=== PATIENT | female | born 1930 | race Caucasian/White ===

== ENCOUNTER 2016-11-16 09:11 | Inpatient (IN) | payer MEDICARE, BC ==
[2016-11-16] MEDS ORDERED: SODIUM CHLORIDE 0.9% 1,000 ML IV STA (09:25)
[2016-11-16] MEDS ORDERED: FAMOTIDINE 20 MG/2 ML VIAL IV STA (09:29)
--- NOTE | 2016-11-16 09:33 | ED ---
General Adult HPI - General Chief complaint: Weakness Stated complaint: Altered Mental Status/Weakness Time Seen by Provider: 11/16/16 09:16 Source: patient, family, RN notes reviewed Mode of arrival: EMS Limitations: no limitations - History of Present Illness Initial comments: Patient is a pleasant 86-year-old female presenting to the emergency department with weakness. Patient did have upper respiratory infection including sore throat followed by sinuses followed by chest congestion. Patient did have a cough. Chest congestion and other problems have essentially resolved. Patient has increased appetite. Patient is having some left-sided pain. No fevers. Patient has been fatigued and not getting out of bed much. - Related Data Home Medications Medication Instructions Recorded Confirmed ALPRAZolam [Xanax] 0.25 mg PO HS PRN 05/01/14 11/16/16 Aspirin 81 mg PO MOWEFR 05/01/14 11/16/16 Atorvastatin [Lipitor] 40 mg PO HS 05/01/14 11/16/16 Furosemide [Lasix] 20 mg PO DAILY PRN 05/01/14 11/16/16 Lidocaine 5% Oint [Xylocaine 5% 1 applicate TOPICAL DAILY PRN 05/01/14 11/16/16 Oint] Losartan-Hctz 50-12.5 mg [Hyzaar 1 tab PO DIRECTED 05/01/14 11/16/16 50-12.5] Meclizine [Antivert] 25 mg PO TID PRN 05/01/14 11/16/16 Nitroglycerin Sl Tabs [Nitrostat] 0.4 mg SUBLINGUAL DIRECTED PRN 05/01/14 HYDROcodone/APAP 7.5-325MG [Warrior 1 tab PO TID 06/28/14 11/16/16 7.5-325] Azithromycin [Zithromax Z-pack] See Taper PO DIRECTED 11/16/16 11/16/16 Carboxymethylcellulose Sodium 1 drop BOTH EYES DAILY 11/16/16 11/16/16 [Refresh Tears] Cholecalciferol [Vitamin D3] 1,000 unit PO DAILY 11/16/16 11/16/16 Cyanocobalamin [Vitamin B-12 1,000 mcg SQ QMONTH 11/16/16 11/16/16 Injection] Denosumab [Prolia] 60 mg SQ DIRECTED 11/16/16 11/16/16 Vit A,C & E/Lutein/Minerals 1 tab PO DAILY 11/16/16 11/16/16 [Ocuvite with Lutein Tablet] methylPREDNISolone [Medrol Dose See Taper PO DIRECTED 11/16/16 11/16/16 Pack] Previous Rx's Medication Instructions Recorded Famotidine [Pepcid] 20 mg PO BID #30 tablet 06/28/14 Ondansetron Odt [Zofran Odt] 4 mg PO Q8HR PRN #15 tab 06/28/14 Allergies Allergy/AdvReac Type Severity Reaction Status Date / Time iodine Allergy Rash/Hives Verified 11/16/16 09:20 latex Allergy Rash/Hives Verified 11/16/16 09:20 morphine Allergy Hallucinati Verified 11/16/16 09:20 ons propoxyphene napsylate Allergy Hallucinati Verified 11/16/16 09:20 [From Darvocet-N] ons adhesive tape AdvReac Unknown Verified 11/16/16 09:20 Review of Systems ROS Statement: Those systems with pertinent positive or pertinent negative responses have been documented in the HPI. ROS Other: All systems not noted in ROS Statement are negative. Constitutional: Denies: fever Eyes: Denies: eye pain ENT: Denies: ear pain Respiratory: Reports: cough Cardiovascular: Denies: chest pain Endocrine: Reports: fatigue Gastrointestinal: Reports: abdominal pain, nausea Genitourinary: Denies: dysuria Musculoskeletal: Denies: arthralgia Skin: Denies: rash Neurological: Reports: weakness (Generalized) Past Medical History Past Medical History: CVA/TIA, Hyperlipidemia, Hypertension, Myocardial Infarction ([place]), Rheumatoid Arthritis (RA) Additional Past Medical History / Comment(s): hX pilot point Hx. vertigo, aneursym Last Myocardial Infarction Date:: 2000 History of Any Multi-Drug Resistant Organisms: None Reported Past Surgical History: Heart Catheterization With Stent Additional Past Surgical History / Comment(s): Hx one ovary removed Hx. cataracts removed both eyes Hx. cardiac stent after OH around 2000 Past Anesthesia/Blood Transfusion Reactions: No Reported Reaction Past Psychological History: No Psychological Hx Reported Smoking Status: Never smoker Past Alcohol Use History: None Reported Past Drug Use History: None Reported - Past Family History Father Additional Family Medical History / Comment(s): Hx. mom and dad - cardiac General Exam Limitations: no limitations General appearance: alert, in no apparent distress Head exam: Present: atraumatic, normocephalic Eye exam: Present: PERRL, other (Left-sided subconjunctival hemorrhage) ENT exam: Present: normal oropharynx Neck exam: Present: normal inspection Respiratory exam: Present: normal lung sounds bilaterally Cardiovascular Exam: Present: regular rate, normal rhythm GI/Abdominal exam: Present: soft, tenderness (Mild left flank). Absent: distended Extremities exam: Present: normal inspection Neurological exam: Present: alert, other (Exam is limited by chronic problems of right shoulder and bilateral knees. No focal deficits.) Psychiatric exam: Present: normal affect, normal mood Skin exam: Absent: rash Course Vital Signs 11/16/16 11/16/16 11/16/16 09:14 09:45 12:29 Temperature 97.7 F 97.9 F Pulse Rate 81 72 71 Respiratory 20 18 16 Rate Blood Pressure 187/85 187/81 190/88 O2 Sat by Pulse 99 98 97 Oximetry EKG Findings - EKG Comments: EKG Findings:: Sinus rhythm at 83. For screening AV block with a [place] of 268. QRS 84. QT 372. QTC 437. Normal axis. Minimal voltage criteria for LVH. No acute ST change. Medical Decision Making - Medical Decision Making Patient reevaluated. Patient and family updated. Case discussed in detail with Dr. Phillips, who will admit for Dr. Melgar. - Lab Data Result diagrams: 11/16/16 09:43 11/16/16 09:43 Lab Results 11/16/16 11/16/16 11/16/16 Range/Units 09:43 09:43 09:43 WBC 9.9 (3.8-10.6) k/uL RBC 4.07 (3.80-5.40) m/uL Hgb 12.3 (11.4-16.0) gm/dL Hct 37.3 (34.0-46.0) % MCV 91.6 (80.0-100.0) fL MCH 30.1 (25.0-35.0) pg MCHC 32.9 (31.0-37.0) g/dL RDW 13.5 (11.5-15.5) % Plt Count 445 (150-450) k/uL Neutrophils % 79 % Lymphocytes % 13 % Monocytes % 5 % Eosinophils % 1 % Basophils % 0 % Neutrophils # 7.8 H (1.3-7.7) k/uL Lymphocytes # 1.3 (1.0-4.8) k/uL Monocytes # 0.5 (0-1.0) k/uL Eosinophils # 0.1 (0-0.7) k/uL Basophils # 0.0 (0-0.2) k/uL PT (9.0-12.0) sec INR (<1.1) APTT (22.0-30.0) sec Sodium 136 L (137-145) mmol/L Potassium 3.9 (3.5-5.1) mmol/L Chloride 97 L (98-107) mmol/L Carbon Dioxide 31 H (22-30) mmol/L Anion Gap 8 mmol/L BUN 18 H (7-17) mg/dL Creatinine 0.80 (0.52-1.04) mg/dL Est GFR (MDRD) Af Amer >60 (>60 ml/min/1.73 sqM) Est GFR (MDRD) Non-Af >60 (>60 ml/min/1.73 sqM) Glucose 107 H (74-99) mg/dL Calcium 9.9 (8.4-10.2) mg/dL Phosphorus 3.5 (2.5-4.5) mg/dL Magnesium 1.9 (1.6-2.3) mg/dL Total Bilirubin 0.7 (0.2-1.3) mg/dL AST 24 (14-36) U/L ALT 34 (9-52) U/L Alkaline Phosphatase 144 H (38-126) U/L Total Creatine Kinase 24 L (30-135) U/L CK-MB (CK-2) 0.5 (0.0-2.4) ng/mL CK-MB (CK-2) Rel Index 2.1 Troponin I 0.012 (0.000-0.034) ng/mL Total Protein 6.2 L (6.3-8.2) g/dL Albumin 3.5 (3.5-5.0) g/dL TSH 2.490 (0.465-4.680) mIU/L Free T4 1.52 (0.78-2.19) ng/dL Free T3 pg/mL 3.1 (2.8-5.3) pg/ml Urine Color Urine Appearance (Clear) Urine pH (5.0-8.0) Ur Specific [place] (1.001-1.035) Urine Protein (Negative) Urine Glucose (UA) (Negative) Urine Ketones (Negative) Urine Blood (Negative) Urine Nitrite (Negative) Urine Bilirubin (Negative) Urine Urobilinogen (<2.0) mg/dL Ur Leukocyte Esterase (Negative) Urine RBC (0-5) /hpf Urine WBC (0-5) /hpf Ur Squamous Epith Cells (0-4) /hpf Urine Mucus (None) /hpf 11/16/16 11/16/16 Range/Units 09:43 11:56 WBC (3.8-10.6) k/uL RBC (3.80-5.40) m/uL Hgb (11.4-16.0) gm/dL Hct (34.0-46.0) % MCV (80.0-100.0) fL MCH (25.0-35.0) pg MCHC (31.0-37.0) g/dL RDW (11.5-15.5) % Plt Count (150-450) k/uL Neutrophils % % Lymphocytes % % Monocytes % % Eosinophils % % Basophils % % Neutrophils # (1.3-7.7) k/uL Lymphocytes # (1.0-4.8) k/uL Monocytes # (0-1.0) k/uL Eosinophils # (0-0.7) k/uL Basophils # (0-0.2) k/uL PT 10.7 (9.0-12.0) sec INR 1.1 (<1.1) APTT 24.3 (22.0-30.0) sec Sodium (137-145) mmol/L Potassium (3.5-5.1) mmol/L Chloride (98-107) mmol/L Carbon Dioxide (22-30) mmol/L Anion Gap mmol/L BUN (7-17) mg/dL Creatinine (0.52-1.04) mg/dL Est GFR (MDRD) Af Amer (>60 ml/min/1.73 sqM) Est GFR (MDRD) Non-Af (>60 ml/min/1.73 sqM) Glucose (74-99) mg/dL Calcium (8.4-10.2) mg/dL Phosphorus (2.5-4.5) mg/dL Magnesium (1.6-2.3) mg/dL Total Bilirubin (0.2-1.3) mg/dL AST (14-36) U/L ALT (9-52) U/L Alkaline Phosphatase (38-126) U/L Total Creatine Kinase (30-135) U/L CK-MB (CK-2) (0.0-2.4) ng/mL CK-MB (CK-2) Rel Index Troponin I (0.000-0.034) ng/mL Total Protein (6.3-8.2) g/dL Albumin (3.5-5.0) g/dL TSH (0.465-4.680) mIU/L Free T4 (0.78-2.19) ng/dL Free T3 pg/mL (2.8-5.3) pg/ml Urine Color Yellow Urine Appearance Clear (Clear) Urine pH 5.5 (5.0-8.0) Ur Specific [place] 1.024 (1.001-1.035) Urine Protein 1+ H (Negative) Urine Glucose (UA) Negative (Negative) Urine Ketones Trace H (Negative) Urine Blood Negative (Negative) Urine Nitrite Negative (Negative) Urine Bilirubin Negative (Negative) Urine Urobilinogen 3.0 (<2.0) mg/dL Ur Leukocyte Esterase Negative (Negative) Urine RBC 1 (0-5) /hpf Urine WBC 2 (0-5) /hpf Ur Squamous Epith Cells 1 (0-4) /hpf Urine Mucus Rare H (None) /hpf - Radiology Data Radiology results: report reviewed (Computed tomography scan of the abdomen pelvis shows some constipation. Subsegmental changes medial right lung base.), image reviewed (Chest x-ray shows chronic changes without acute process.) Disposition Clinical Impression: Weakness Disposition: ADMITTED IP TO THIS HOSP
[2016-11-16] MEDS ORDERED: ACETAMINOPHEN IV (For NPO) 1,000 MG in EMPTY BAG 1 BAG IVPB ONE (09:54)
[2016-11-16 09:58] LABS: Basophils % (A) 0 %; CH 30.5; CHCM 33.4; Eosinophils # (A) 0.1 k/uL (0-0.7); Eosinophils % (A) 1 %; HCT 37.3 % (34.0-46.0); HDW 2.35; HGB 12.3 gm/dL (11.4-16.0); Luc # (Auto) 0.14; Luc % (Auto) 1; Lymphocytes # (A) 1.3 k/uL (1.0-4.8); Lymphocytes % (A) 13 %; MCH 30.1 pg (25.0-35.0); MCHC 32.9 g/dL (31.0-37.0); MCV 91.6 fL (80.0-100.0); Mean Platelet Volume 6.3; Monocytes # (A) 0.5 k/uL (0-1.0); Monocytes % (A) 5 %; Neutrophils # (A) 7.8 k/uL (1.3-7.7); Neutrophils % (A) 79 %; RBC 4.07 m/uL (3.80-5.40); RDW 13.5 % (11.5-15.5); WBC 9.9 k/uL (3.8-10.6); WBC (Perox) 10.07
[2016-11-16 10:07] LABS: INR 1.1 (<1.1); Partial Thromboplastin Time 24.3 sec (22.0-30.0); Prothrombin Time 10.7 sec (9.0-12.0)
[2016-11-16 10:09] LABS: ALT 34 U/L (9-52); AST 24 U/L (14-36); Alkaline Phosphatase 144 U/L (38-126); Anion Gap 8 mmol/L; Blood Urea Nitrogen 18 mg/dL (7-17); Calcium 9.9 mg/dL (8.4-10.2); Carbon Dioxide 31 mmol/L (22-30); Chloride 97 mmol/L (98-107); Glucose 107 mg/dL (74-99); Magnesium 1.9 mg/dL (1.6-2.3); Non-African American GFR(MDRD) >60 (>60 ml/min/1.73 sqM); Phosphorous 3.5 mg/dL (2.5-4.5); Potassium 3.9 mmol/L (3.5-5.1); Sodium 136 mmol/L (137-145); Total Bilirubin 0.7 mg/dL (0.2-1.3); Total Protein 6.2 g/dL (6.3-8.2)
--- NOTE | 2016-11-16 10:39 | XR ---
EXAMINATION TYPE: XR chest 2V DATE OF EXAM: 11/16/2016 10:33 AM COMPARISON: Prior chest x-ray January 12, 2012 HISTORY: Weakness TECHNIQUE: Frontal and lateral views of the chest are obtained. FINDINGS: There is chronic parenchymal change without suspicious focal air space opacity, pleural ef fusion, or pneumothorax seen. The cardiac silhouette size is enlarged with atherosclerotic thoracic aorta. The osseous structures are demineralized. Degenerative change in bilateral shoulders is pres ent. IMPRESSION: Chronic parenchymal changes and cardiomegaly without acute pulmonary process.
[2016-11-16 10:40] LABS: Creatine Kinase MB 0.5 ng/mL (0.0-2.4); Troponin I 0.012 ng/mL (0.000-0.034)
--- NOTE | 2016-11-16 10:42 | CT ---
EXAMINATION TYPE: CT abdomen pelvis wo con DATE OF EXAM: 11/16/2016 10:28 AM COMPARISON: 06/28/2014 HISTORY: ams, weakness CT DLP: 635.1 mGycm Automated exposure control for dose reduction was used. TECHNIQUE: Helical acquisition of images was performed from the lung bases through the pelvis. FINDINGS: LUNG BASES: Subsegmental changes are seen compatible with atelectasis. Somewhat nodular density in th e medial aspect of the right lung is seen which also may be postinflammatory be followed on short-ter m basis. Cardiomegaly noted.. LIVER/GB: No significant abnormality is appreciated. PANCREAS: No significant abnormality is seen. SPLEEN: No significant abnormality is seen. ADRENALS: No significant abnormality is seen. KIDNEYS: 1.7 cm left renal lesion is indeterminate by noncontrast CT but stable from previous.. URINARY BLADDER: No significant abnormality is seen. ADENOPATHY: None visualized. OSSEOUS STRUCTURES: Facet arthropathy and multilevel degenerative disc disease of the vertebral colu mn noted with a age-indeterminate appearing compression fracture with retropulsion of L2. Suspect mul tilevel canal stenosis due to degenerative disc disease and disc bulging with facet arthropathy. BOWEL: Marked dilation of the sigmoid colon focally measuring 8 cm. This is near the lower pelvis. C ould be transient related to peristalsis. Mucosal lesion of the distal sigmoid colon or giant diverti culum also in the differential diagnosis. Finding was also noted in 2013. OTHER: Aorta of normal caliber. IMPRESSION: 1. Extensive retained fecal debris throughout the colon compatible with constipation. There is a dila clemente sigmoid colon segment measuring 8 cm across diameter. This is similar to the previous exam of 201 4. Distal sigmoid mucosal lesion in the differential diagnosis as well as sigmoid diverticulum. Alter natively, this could be related to transient peristalsis given no proximal bowel dilation. Correlate clinically. 2. Age-indeterminate compression fracture of L2 with the approximate 10% retropulsion. 3. Subsegmental changes medial aspect right lung base. This somewhat nodular pattern but most likely is postinflammatory could be followed up 3 month short-term basis with
[2016-11-16 12:13] LABS: Appearance,Urine Clear (Clear); Bilirubin,Urine Negative (Negative); Glucose,Urine (UA) Negative (Negative); Ketones,Urine Trace (Negative); Leukocyte Esterase,Urine Negative (Negative); Mucus,Urine Rare /hpf; Nitrite,Urine Negative (Negative); PH, Urine 5.5 (5.0-8.0); Particle Count 10181; Protein,Urine 1+ (Negative); RBC,Urine 1 /hpf (0-5); Specific Gravity,Urine 1.024 (1.001-1.035); Squamous Epithelial Cell,Urine 1 /hpf (0-4); UA Billing (MACRO vs. MICRO) MICRO; WBC,Urine 2 /hpf (0-5)
[2016-11-16] MEDS ORDERED: NALOXONE 0.4 MG/ML 1 ML VIAL IV PRN (12:40)
[2016-11-16] MEDS ORDERED: MAGNESIUM HYDROXIDE 2,400 MG/10 ML CUP PO PRN (12:40)
[2016-11-16] MEDS ORDERED: ONDANSETRON 4 MG/2 ML VIAL IVP PRN (12:40)
[2016-11-16] MEDS ORDERED: HYDROcodone/APAP 5-325MG 1 EACH TAB PO STA (13:36)
[2016-11-16] MEDS ORDERED: NA PHOS,M-B/NA PHOS,DI-BA 133 ML ENEMA RECTAL STA (13:36)
[2016-11-16] MEDS ORDERED: ENALAPRILAT 1.25 MG/ML 1 ML VIAL IVP STA (13:50)
[2016-11-16] MEDS: SODIUM CHLORIDE 0.9% 1,000 ML IV SCH ×2 (14:06→20:44)
[2016-11-16] MEDS ORDERED: MECLIZINE 25 MG TAB PO PRN (17:25)
[2016-11-16] MEDS ORDERED: FUROSEMIDE 20 MG TAB PO PRN (17:25)
[2016-11-16] MEDS ORDERED: LIDOCAINE 4% CREAM 5 GM TUBE TOPICAL PRN (17:25)
[2016-11-16] MEDS ORDERED: NITROGLYCERIN SL TABS 0.4 MG TAB SUBLINGUAL PRN (17:25)
[2016-11-16] MEDS: LOSARTAN-HCTZ 50-12.5 MG 1 EACH TAB PO SCH (19:00)
[2016-11-16] MEDS: ASPIRIN 81 MG CHEW PO SCH (19:00)
[2016-11-16] MEDS ORDERED: HYDROcodone/APAP 7.5-325MG 1 EACH TAB PO PRN (20:07)
[2016-11-16] MEDS: ATORVASTATIN 40 MG TAB PO SCH (20:31)
[2016-11-16] MEDS: ACETAMINOPHEN TAB 325 MG TAB PO PRN (20:31)
[2016-11-16] MEDS: HEPARIN SODIUM,PORCINE 5,000 UNIT/ML 1 ML VIAL SQ SCH (20:49)
[2016-11-16] MEDS ORDERED: FAMOTIDINE 20 MG TAB PO SCH (21:00)
[2016-11-16] MEDS: ALPRAZolam 0.25 MG TAB PO PRN (21:12)
[2016-11-16] MEDS ORDERED: HYDROcodone/APAP 7.5-325MG 1 EACH TAB PO SCH (22:00)
[2016-11-17 04:11] LABS: Appearance,Urine Clear (Clear); Bilirubin,Urine Negative (Negative); Glucose,Urine (UA) Negative (Negative); Ketones,Urine Negative (Negative); Leukocyte Esterase,Urine Negative (Negative); Nitrite,Urine Negative (Negative); PH, Urine 5.5 (5.0-8.0); Protein,Urine Negative (Negative); Specific Gravity,Urine 1.015 (1.001-1.035); UA Billing (MACRO vs. MICRO) CHEM; Urobilinogen,Urine <2.0 mg/dL (<2.0)
[2016-11-17] MEDS: SODIUM CHLORIDE 0.9% 1,000 ML IV SCH ×2 (05:23→18:11)
[2016-11-17] MEDS: ACETAMINOPHEN TAB 325 MG TAB PO PRN (07:28)
[2016-11-17] MEDS: VIT A,C & E-LUTEIN-MINERALS 1 EACH TAB PO SCH (08:46)
[2016-11-17] MEDS: LOSARTAN-HCTZ 50-12.5 MG 1 EACH TAB PO SCH (08:46)
[2016-11-17] MEDS: HEPARIN SODIUM,PORCINE 5,000 UNIT/ML 1 ML VIAL SQ SCH ×2 (08:46→21:24)
[2016-11-17 08:59] LABS: Basophils # (A) 0.1 k/uL (0-0.2); Basophils % (A) 0 %; CHCM 32.2; Eosinophils # (A) 0.2 k/uL (0-0.7); Eosinophils % (A) 1 %; HCT 35.3 % (34.0-46.0); HDW 2.26; HGB 11.3 gm/dL (11.4-16.0); Luc # (Auto) 0.12; Luc % (Auto) 1; Lymphocytes # (A) 1.1 k/uL (1.0-4.8); Lymphocytes % (A) 8 %; MCH 29.9 pg (25.0-35.0); MCV 93.3 fL (80.0-100.0); Mean Platelet Volume 6.6; Monocytes # (A) 0.6 k/uL (0-1.0); Monocytes % (A) 4 %; Neutrophils # (A) 11.7 k/uL (1.3-7.7); Neutrophils % (A) 85 %; RBC 3.78 m/uL (3.80-5.40); RDW 13.6 % (11.5-15.5); WBC 13.7 k/uL (3.8-10.6); WBC (Perox) 14.33
[2016-11-17] MEDS ORDERED: FAMOTIDINE 20 MG TAB PO SCH (09:00)
[2016-11-17 09:12] LABS: Anion Gap 10 mmol/L; Blood Urea Nitrogen 15 mg/dL (7-17); Calcium 9.1 mg/dL (8.4-10.2); Carbon Dioxide 27 mmol/L (22-30); Chloride 98 mmol/L (98-107); Glucose 117 mg/dL (74-99); Non-African American GFR(MDRD) >60 (>60 ml/min/1.73 sqM); Potassium 3.5 mmol/L (3.5-5.1); Sodium 135 mmol/L (137-145)
[2016-11-17] MEDS: ARTIFICIAL TEARS-HYPROMELLOSE DROPS 15 ML BTL BOTH EYES SCH (09:42)
--- NOTE | 2016-11-17 11:23 | HP ---
DATE OF ADMISSION: 11/16/2016 The chief complaint is weakness. HISTORY OF PRESENT ILLNESS: This is an 86-year-old woman with a past medical history of CVA, TIA, hypertension, hyperlipidemia, myocardial infection, DJD, rheumatoid arthritis, history of brain aneurysm, being followed by Dr. Melgar in the outpatient setting. Recently an upper respiratory infection. The patient also has some chest congestion. The patient also has some cough and now the family is complaining of significant cough, weakness, and as well as some change in mental status. Patient also had episode of vomiting, blood pressure slightly elevated. Patient came to [facility] and was admitted with further evaluation. There is no history of fevers, rigors or chills. No history of headache, loss of consciousness. PAST MEDICAL HISTORY: History of CVA, TIA, hypertension, hyperlipidemia, myocardial infarction, DJD, history of rheumatoid arthritis. Medications prior to admission include home medications are: 1. Vitamin B12 subQ monthly. 2. Ocuvite 1 p.o. daily. 3. Vitamin D3 one thousand daily. 4. Refresh 1 daily. 5. Medrol Dosepak. 6. Zofran 4 mg q.8. 7. Nitrostat 0.4, p.r.n. 8. Antivert 25 mg t.i.d. p.r.n. 9. Hyzaar 50/12.5 mg p.r.n. 10. Xylocaine 5% local application. 11. [place] 7.5 p.o. daily. 12. Lasix 20 mg p.o. daily p.r.n. 13. Pepcid 20 mg p.o. b.i.d. 14. Prolia 60 mg subQ as before. 15. Zithromax tapering dose. 16. Lipitor 40 mg q.h.s. 17. Aspirin 81 mg Wednesday, Wednesday, Wednesday. 18. Xanax 0.25 q.h.s. p.r.n. Allergies are LATEX, IODINE, MORPHINE, PROPOXYPHENE, ADHESIVE TAPE. FAMILY HISTORY: History of cardiac problems in the family. SOCIAL HISTORY: Previous history or smoking, no history of current smoking, alcohol. REVIEW OF SYSTEMS: ENT: No diminished hearing, no diminished vision. CARDIOVASCULAR SYSTEM: As mentioned earlier. RESPIRATORY: As mentioned earlier. GI: As mentioned earlier. : No dysuria. NERVOUS SYSTEM: As mentioned earlier. ALLERGY/IMMUNOLOGY: No asthma or hayfever. MUSCULOSKELETAL: As mentioned earlier. HEMATOLOGY/ONCOLOGY: As mentioned earlier. ENDOCRINE: As mentioned earlier. CONSTITUTIONAL: As mentioned earlier. DERMATOLOGY: Negative. RHEUMATOLOGY: Negative. PSYCHIATRY: As mentioned earlier. PHYSICAL EXAMINATION: Patient is alert and oriented x2. Pulse 62, blood pressure 187/77, respirations 20, temperature 97 degrees, pulse ox 100% on 2 L. HEENT: Oral mucosa dry. NECK: No jugular venous distention. No carotid bruit. No lymph node enlargement. CARDIOVASCULAR: S1 and S2, muffled. No S3, no S4. RESPIRATORY: Breath sounds diminished at the bases. A few scattered rhonchi, no crackles. Abdomen is soft, nontender. No mass palpable. EXTREMITIES: Legs no edema, no swelling. NERVOUS SYSTEM: Higher functions as mentioned earlier. Moves all 4 limbs, mild diffuse weakness. LYMPHATICS: No lymph node enlargement in neck, groin or axillae. SKIN: No ulcer, rash or bleeding. Labs are CBC within normal limits, sodium 136, otherwise alk phos 144, UA noted. The chest x-ray shows chronic parenchymal changes without any acute abnormality. Abdominal and pelvis CAT scan of the abdomen and pelvis, constipation, compression fracture L2, subsegmental changes in the lungs. ASSESSMENT: 1. Change in mental status, weakness, possible acute metabolic encephalopathy. 2. Possible dehydration. 3. Hyponatremia, mild. 4. History of cerebrovascular accident, transient ischemic attack. 5. Hypertension. 6. Hyperlipidemia. 7. History of myocardial infarction. 8. History of degenerative joint disease. 9. History of rheumatoid arthritis. 10. History of brain aneurysm. 11. History of osteoporosis. 12. History of coronary artery disease and stent. 13. Remote history nicotine dependence. 14. FULL CODE. RECOMMENDATION: In this 86-year-old woman who presented with multiple complex medical issues, will monitor the patient closely, symptomatic treatment; otherwise, recommend with cautious hydration. Other than that, I would recommend resuming the home medications and continue to monitor. PT, OT will be evaluated. The possibility of ECF rehab is also being considered. Otherwise, prognosis guarded, which I discussed at length with the family and further recommendations to follow.
[2016-11-17] MEDS ORDERED: CHOLECALCIFEROL 1,000 UNIT TAB PO SCH (12:00)
[2016-11-17 15:04] VITALS: BMI 27.4
--- NOTE | 2016-11-17 15:10 | P.GSCN ---
History of Present Illness Consult date: 11/17/16 Requesting physician: Hubert Phillips History of present illness: 86-year-old female being seen by surgical service at the request of the attending for a surgical eval for severe constipation reportedly had not had a bowel movement in the last several weeks patient is a poor historian patient states she hasn't had a bowel movement in several weeks. CAT scan without contrast of done on admission of the abdomen pelvis shows extensive retained fecal debris throughout the colon compatible with constipation. There is a dilated sigmoid colon segment measuring 8 cm cross diameter which is similar to previous exam in 2014. Rectal exam moderate amount of stool in the rectal vault noted no blood noted skin around the anus excoriated. Abdomen slightly distended with bowel tones noted Past surgical history from reviewing prior computerized records indicate the patient's had a history of one ovary removed, cardiac stents placed in 2000 and cataracts bilaterally Patient presented to the emergency room with a chief complaint of developing weakness with an upper respiratory infection including sore throat with chest congestion. There was no fever. Currently the patient has been experiencing decreased endurance has decreased her activity level in the emergency room the patient was afebrile. The blood pressure was elevated 190/88. Patient reportedly lives with a daughter uses a walker Review of Systems Not able to obtain patient has no recall Past Medical History Past Medical History: Chest Pain / Angina, CVA/TIA, Hyperlipidemia, Hypertension , Myocardial Infarction ([place]), Osteoarthritis (OA), Rheumatoid Arthritis (RA) Additional Past Medical History / Comment(s): hX [place] Hx. vertigo, brain aneursym, torn rt rotator cuff, osteoporosis, fragile sensative skin, tia, jorge macular degeneration Last Myocardial Infarction Date:: 2001 History of Any Multi-Drug Resistant Organisms: None Reported Past Surgical History: Heart Catheterization With Stent Additional Past Surgical History / Comment(s): Hx lt ovary removed, cataracts removed both eyes, cardiac stent after [place] around 2001, dental implant front tooth, colonoscopy, lt carpal tunnel release, lt hand middle finger and thumb release, rt bunionectomy, benign tumor removed from rt cheek. Past Anesthesia/Blood Transfusion Reactions: Previous Problems w/ Anesthesia Additional Past Anesthesia/Blood Transfusion Reaction / Comm: early waking Date of Last Stent Placement:: 2001? Past Psychological History: No Psychological Hx Reported Additional Psychological History / Comment(s): pt lives with her daughter guzman.uses a cane and also has a walker. home has 4 steps to get into a ramp( built for her when he was alive). no outside services. Smoking Status: Former smoker Past Alcohol Use History: Rare Additional Past Alcohol Use History / Comment(s): started smoking at age 16 smoked less than 1/4 ppd, quit , in past rare etoh use, none now. Past Drug Use History: None Reported - Past Family History Father Additional Family Medical History / Comment(s): Hx. mom and dad - cardiac Medications and Allergies Home Medications Medication Instructions Recorded Confirmed Type ALPRAZolam [Xanax] 0.25 mg PO HS PRN 05/01/14 11/16/16 History Aspirin 81 mg PO MOWEFR 05/01/14 11/16/16 History Atorvastatin [Lipitor] 40 mg PO HS 05/01/14 11/16/16 History Furosemide [Lasix] 20 mg PO DAILY PRN 05/01/14 11/16/16 History Lidocaine 5% Oint [Xylocaine 5% 1 applicate TOPICAL DAILY PRN 05/01/14 11/16/16 History Oint] Losartan-Hctz 50-12.5 mg [Hyzaar 1 tab PO DIRECTED 05/01/14 11/16/16 History 50-12.5] Meclizine [Antivert] 25 mg PO TID PRN 05/01/14 11/16/16 History Nitroglycerin Sl Tabs [Nitrostat] 0.4 mg SUBLINGUAL DIRECTED PRN 05/01/14 History HYDROcodone/APAP 7.5-325MG [[place] 1 tab PO TID 06/28/14 11/16/16 History 7.5-325] Azithromycin [Zithromax Z-pack] See Taper PO DIRECTED 11/16/16 11/16/16 History Carboxymethylcellulose Sodium 1 drop BOTH EYES DAILY 11/16/16 11/16/16 History [Refresh Tears] Cholecalciferol [Vitamin D3] 1,000 unit PO DAILY 11/16/16 11/16/16 History Cyanocobalamin [Vitamin B-12 1,000 mcg SQ QMONTH 11/16/16 11/16/16 History Injection] Denosumab [Prolia] 60 mg SQ DIRECTED 11/16/16 11/16/16 History Vit A,C & E/Lutein/Minerals 1 tab PO DAILY 11/16/16 11/16/16 History [Ocuvite with Lutein Tablet] methylPREDNISolone [Medrol Dose See Taper PO DIRECTED 11/16/16 11/16/16 History Pack] Allergies Allergy/AdvReac Type Severity Reaction Status Date / Time iodine Allergy Rash/Hives Verified 11/16/16 09:20 latex Allergy Rash/Hives Verified 11/16/16 09:20 morphine Allergy Hallucinati Verified 11/16/16 09:20 ons propoxyphene napsylate Allergy Hallucinati Verified 11/16/16 09:20 [From Darvocet-N] ons adhesive tape AdvReac Unknown Verified 11/16/16 09:20 Surgical - Exam Vital Signs Temp Pulse Resp BP Pulse Ox 97.7 F 81 20 187/85 99 11/16/16 09:14 11/16/16 09:14 11/16/16 09:14 11/16/16 09:14 11/16/16 09:14 GENERAL APPEARANCE: 86-year-old female patient is alert, oriented to self and place, in no acute distress. Pleasant cooperative VITAL SIGNS: Reviewed HEENT: Head is normocephalic and atraumatic left side subconjunctival hemorrhage noted . Pupils are equal and reactive. The nares are patent. Oropharynx is clear without lesions. NECK: Supple without lymphadenopathy. Traches midline. HEART: S1, S2. Regular rate and rhythm. Not able to appreciate a murmur LUNGS: No crackles or wheezes are heard. No shortness of breath no cough noted ABDOMEN: Soft, slight tendernesss, slight distended with good bowel sounds. No peritoneal signs. No palpable organomegaly or masses. EXTREMITIES: Normal skin color and turgor. No cyanosis, rash, ulceration, clubbing or edema. Radial pedal pulses are 2/4 bilaterally. . Results - Labs 11/17/16 08:22 11/17/16 08:22 Abnormal Lab Results - Last 24 Hours (Table) 11/17/16 11/17/16 Range/Units 08:22 08:22 WBC 13.7 H (3.8-10.6) k/uL RBC 3.78 L (3.80-5.40) m/uL Hgb 11.3 L (11.4-16.0) gm/dL Plt Count 458 H (150-450) k/uL Neutrophils # 11.7 H (1.3-7.7) k/uL Sodium 135 L (137-145) mmol/L Glucose 117 H (74-99) mg/dL Microbiology - Last 24 Hours (Table) 11/17/16 03:40 Urine Culture - Preliminary Urine,Catheterized Diabetes panel 11/17/16 Range/Units 08:22 Sodium 135 L (137-145) mmol/L Potassium 3.5 (3.5-5.1) mmol/L Chloride 98 (98-107) mmol/L Carbon Dioxide 27 (22-30) mmol/L BUN 15 (7-17) mg/dL Creatinine 0.70 (0.52-1.04) mg/dL Glucose 117 H (74-99) mg/dL Calcium 9.1 (8.4-10.2) mg/dL Calcium panel 11/17/16 Range/Units 08:22 Calcium 9.1 (8.4-10.2) mg/dL Pituitary panel 11/17/16 Range/Units 08:22 Sodium 135 L (137-145) mmol/L Potassium 3.5 (3.5-5.1) mmol/L Chloride 98 (98-107) mmol/L Carbon Dioxide 27 (22-30) mmol/L BUN 15 (7-17) mg/dL Creatinine 0.70 (0.52-1.04) mg/dL Glucose 117 H (74-99) mg/dL Calcium 9.1 (8.4-10.2) mg/dL Adrenal panel 11/17/16 Range/Units 08:22 Sodium 135 L (137-145) mmol/L Potassium 3.5 (3.5-5.1) mmol/L Chloride 98 (98-107) mmol/L Carbon Dioxide 27 (22-30) mmol/L BUN 15 (7-17) mg/dL Creatinine 0.70 (0.52-1.04) mg/dL Glucose 117 H (74-99) mg/dL Calcium 9.1 (8.4-10.2) mg/dL Assessment and Plan Plan: Impression Present on admission CAT scan abdomen pelvis without contrast shows extensive retained fecal debris throughout the colon compatible with constipation History of chronic constipation Chronic physical debility use a walker and a cane History of a prior TIA Present on admission hypertension urgency Anxiety disorder nonspecified Recent treatment for an upper respiratory infection on zithomax and Medrol Dosepak Plan Bowel stimulant program to be initiated Soapsuds enema as ordered IV fluid for rehydration DVT and GI prophylaxis Resume home meds as appropriate Further surgical recommendations pending will follow no indication of acute surgical abdomen Thank you for allowing us to participate in the surgical management of your patient thank you for this consultation will follow The above dictated assessment and findings were discussed with Dr Bradley. Louis Impression and the plan of care have been dictated as directed. Gerri Fishman nurse practitioner acting as a scribe for Dr. Clark
[2016-11-17] MEDS ORDERED: SENNOSIDES 8.6 MG TAB PO STA (15:11)
[2016-11-17] MEDS ORDERED: LACTULOSE 20 GM/30 ML CUP PO ONE (15:12)
[2016-11-17] MEDS: POLYETHYLENE GLYCOL 3350 17 GM POWD.PACK PO SCH (15:59)
[2016-11-17] MEDS: ALPRAZolam 0.25 MG TAB PO PRN (21:24)
[2016-11-17] MEDS: SENNOSIDES 8.6 MG TAB PO SCH (21:25)
[2016-11-17] MEDS: ATORVASTATIN 40 MG TAB PO SCH (21:25)
[2016-11-17] MEDS: FAMOTIDINE 20 MG TAB PO SCH (21:25)
--- NOTE | 2016-11-17 22:02 | PN ---
DATE OF SERVICE: 11/17/2016 PRESENTING COMPLAINT: Weak and tired. INTERVAL HISTORY: This patient was admitted with multiple problems. Patient had what appeared to be like a viral presentation 2 weeks ago, and since then has had a very poor appetite, not eating well, weak, tired, and rundown. The patient has not had a bowel movement for [address] scan is showing severe constipation with distended sigmoid, about 8 cm. Patient is feeling tired and rundown. Review systems done for constitutional, cardiovascular, GI, pulmonary; relevant findings as above. Current medications are reviewed. On examination, temperature 96.7, pulse 74, respirations 16, blood pressure 137/77, pulse ox 99% on 2 L. GENERAL APPEARANCE: Lying in bed, tired-appearing. EYES: Pupils equal. Conjunctivae normal. NECK: JVD not raised. Mass not palpable. RESPIRATORY: Effort normal. Lungs are clear. CARDIOVASCULAR: First and second sounds normal. No edema. ABDOMEN: Mild lower abdominal tenderness. No guarding or rigidity. Soft. Bowel sounds are present. PSYCHIATRY: Alert and oriented x3. Mood and affect normal. INVESTIGATIONS: White count 13.7, hemoglobin 11.3, potassium 3.5. CT scan of the abdomen and pelvis showing extensive retained fecal debris throughout the colon and dilated sigmoid colon, about 8 cm. ASSESSMENT: 1. Acute severe constipation causing dilatation of the sigmoid colon, 8 cm. The patient has not had a bowel movement for at least 2 weeks. This could be a result of the patient's pain medications and decreased mobility. 2. Essential hypertension. 3. Hyperlipidemia. 4. Coronary artery disease with prior history of myocardial infarction. 5. Primary osteoarthritis of multiple joints. 6. History of brain aneurysm. 7. Coronary artery disease with prior history of stent in 2001. 8. Gait dysfunction, uses a cane and a walker. PLAN: I will consult General Surgery in view of the excessive severe constipation. Other home medications will be resumed. The patient's Lasix for now will be discontinued. Care was discussed with the patient. Patient's daughter was present at the bedside. Questions were answered. General Surgery was consulted, who ordered MiraLAX. The patient is definitely not safe to go home given her age and no bowel movement for 2 weeks, she will need at least 2 nights' stay at the hospital.
[2016-11-18] MEDS: SODIUM CHLORIDE 0.9% 1,000 ML IV SCH ×3 (06:06→21:53)
[2016-11-18 07:52] LABS: Basophils # (A) 0.1 k/uL (0-0.2); Basophils % (A) 1 %; CH 30.2; CHCM 33.1; Eosinophils # (A) 0.3 k/uL (0-0.7); Eosinophils % (A) 3 %; HCT 31.6 % (34.0-46.0); HDW 2.39; HGB 10.4 gm/dL (11.4-16.0); Luc # (Auto) 0.13; Luc % (Auto) 1; Lymphocytes # (A) 0.9 k/uL (1.0-4.8); Lymphocytes % (A) 9 %; MCH 30.2 pg (25.0-35.0); MCHC 32.9 g/dL (31.0-37.0); MCV 91.8 fL (80.0-100.0); Mean Platelet Volume 7.5; Monocytes # (A) 0.4 k/uL (0-1.0); Monocytes % (A) 4 %; Neutrophils # (A) 8.4 k/uL (1.3-7.7); Neutrophils % (A) 83 %; RBC 3.44 m/uL (3.80-5.40); RDW 13.6 % (11.5-15.5); WBC 10.1 k/uL (3.8-10.6); WBC (Perox) 10.96
[2016-11-18 07:57] LABS: Anion Gap 7 mmol/L; Blood Urea Nitrogen 11 mg/dL (7-17); Carbon Dioxide 27 mmol/L (22-30); Chloride 99 mmol/L (98-107); Glucose 90 mg/dL (74-99); Non-African American GFR(MDRD) >60 (>60 ml/min/1.73 sqM); Potassium 3.5 mmol/L (3.5-5.1); Sodium 133 mmol/L (137-145)
[2016-11-18] MEDS: HEPARIN SODIUM,PORCINE 5,000 UNIT/ML 1 ML VIAL SQ SCH ×2 (08:58→21:51)
[2016-11-18] MEDS: ARTIFICIAL TEARS-HYPROMELLOSE DROPS 15 ML BTL BOTH EYES SCH (08:58)
[2016-11-18] MEDS: POLYETHYLENE GLYCOL 3350 17 GM POWD.PACK PO SCH (08:58)
[2016-11-18] MEDS: VIT A,C & E-LUTEIN-MINERALS 1 EACH TAB PO SCH (08:59)
[2016-11-18] MEDS: FAMOTIDINE 20 MG TAB PO SCH ×2 (09:00→21:52)
[2016-11-18] MEDS: ASPIRIN 81 MG CHEW PO SCH (09:00)
[2016-11-18] MEDS: SENNOSIDES 8.6 MG TAB PO SCH ×2 (09:00→21:51)
[2016-11-18] MEDS: LOSARTAN-HCTZ 50-12.5 MG 1 EACH TAB PO SCH (09:00)
--- NOTE | 2016-11-18 14:27 | P.PN ---
Subjective 86-year-old female being seen on rounds. Currently sitting up in bed patient's tolerating a diet states there is no abdominal pain. Patient reports having had bowel movements no abdominal cramping. Patient states she has chronic constipation issues has been ongoing for "most of my life. Patient stated felt like i was getting a cold not drinking adequately I think that's what caused me to not have a bowel movement for at least 2 weeks normally can go about a week before have a bowel movement Objective - Vital Signs Vital signs: Vital Signs Temp 98.0 F 11/18/16 07:00 Pulse 86 11/18/16 08:00 Resp 20 11/18/16 08:00 BP 145/79 11/18/16 08:03 Pulse Ox 100 11/18/16 07:00 Intake & Output 11/17/16 11/18/16 11/18/16 18:59 06:59 18:59 Intake Total 1420 880 Output Total 500 543 150 Balance -500 877 730 Weight 74.843 kg Intake: IV 1320 880 Sodium Chloride 0.9% 1, 1320 880 000 ml @ 110 mls/hr IV . Q9H6M [facility] Rx#:[id number] Oral 100 Output: Urine 500 500 150 Straight 500 Post Void Residual 43 Other: Voiding Method Self-Catheterization Bedpan # Voids 1 1 # Bowel Movements 2 2 - Exam Physical exam 86-year-old female pleasant cooperative oriented 3 resting comfortably in bed Lungs essentially clear with adequate air movement bilaterally Heart S1-S2 audible and regular no murmur denying chest pain Abdomen soft nontender not distended bowel tones present states urinating no difficulty states stooling without difficulty no nausea no vomiting to decrease in appetite Extremities no edema noted - Labs CBC & Chem 7: 11/18/16 07:32 11/18/16 07:32 Labs: Abnormal Lab Results - Last 24 Hours (Table) 11/18/16 11/18/16 Range/Units 07:32 07:32 RBC 3.44 L (3.80-5.40) m/uL Hgb 10.4 L (11.4-16.0) gm/dL Hct 31.6 L (34.0-46.0) % Neutrophils # 8.4 H (1.3-7.7) k/uL Lymphocytes # 0.9 L (1.0-4.8) k/uL Sodium 133 L (137-145) mmol/L Microbiology - Last 24 Hours (Table) 11/17/16 03:40 Urine Culture - Final Urine,Catheterized Assessment and Plan Plan: Impression Present on admission CAT scan abdomen pelvis without contrast shows extensive retained fecal debris throughout the colon compatible with constipation History of chronic constipation Chronic physical debility use a walker and a cane History of a prior TIA Present on admission hypertension urgency Anxiety disorder nonspecified Recent treatment for an upper respiratory infection on zithomax and Medrol Dosepak Plan Bowel stimulant program to be initiated DVT and GI prophylaxis Resume home meds as appropriate no indication of acute surgical abdomen no further surgical recommendations at this time will sign off and reevaluate as needed The above dictated assessment and findings were discussed with Dr Bradley. Louis Impression and the plan of care have been dictated as directed. Gerri Fishman nurse practitioner acting as a scribe for Dr. Clark
[2016-11-18] MEDS ORDERED: Acetaminophen-Codeine 300-30mg TAB PO PRN (17:36)
[2016-11-18] MEDS ORDERED: NAPROXEN 250 MG TAB PO PRN (17:37)
[2016-11-18] MEDS: ATORVASTATIN 40 MG TAB PO SCH (21:52)
[2016-11-18] MEDS: ALPRAZolam 0.25 MG TAB PO PRN (21:57)
[2016-11-19] MEDS: SODIUM CHLORIDE 0.9% 1,000 ML IV SCH ×2 (06:24→14:39)
--- NOTE | 2016-11-19 06:48 | PN ---
DATE OF SERVICE: 11/18/2016 PRESENTING COMPLAINT: Tired. INTERVAL HISTORY: This patient presented with post viral fatigue syndrome with poor appetite and severe constipation. Patient responded very well to enemas yesterday and very large bowel movements over night. Feeling much better and more perky today. She actually ate some food. Review of systems done for constitutional, cardiovascular, GI, pulmonary; relevant findings as above. Patient's appetite is better. Current medications are reviewed and include laxatives and IV fluids. On examination, temperature 98, pulse 79, respirations 20, blood pressure 150/73, repeat 184/91 and then repeat 145/79. GENERAL APPEARANCE: Lying in bed, more awake, comfortable. EYES: Pupils equal. Conjunctivae normal. NECK: JVD not raised. Mass not palpable. RESPIRATORY: Effort normal. LUNGS: Clear. CARDIOVASCULAR: First and second sounds normal. No edema. ABDOMEN: Soft, nontender. Liver and spleen not palpable. PSYCHIATRY: Awake, answering simple questions. INVESTIGATIONS: White count 10.1, hemoglobin 10.4. Potassium 3.5. ASSESSMENT: 1. Acute severe constipation, causing dilatation of the sigmoid colon probably related to pain medications at home. Responded well to laxatives. 2. Essential hypertension. 3. Hyperlipidemia. 4. Coronary artery disease with prior history of myocardial infarction. 5. Primary osteoarthritis of multiple joints. 6. History of brain aneurysm. 7. Coronary artery disease with prior history of stent in 2001. 8. Gait dysfunction, uses a cane and a walker. 9. Post viral syndrome. PLAN: Care was discussed with the patient's daughter, Elzbieta and the patient. Overall doing better. Diet is being advanced. Spoke to nurse to encourage the patient to be out of bed and ambulate. Sit her up in a chair.
[2016-11-19 09:42] LABS: Basophils % (A) 0 %; CH 30.6; CHCM 33.3; Eosinophils # (A) 0.3 k/uL (0-0.7); Eosinophils % (A) 3 %; HCT 31.9 % (34.0-46.0); HDW 2.43; HGB 10.6 gm/dL (11.4-16.0); Luc # (Auto) 0.14; Luc % (Auto) 1; Lymphocytes # (A) 0.8 k/uL (1.0-4.8); Lymphocytes % (A) 8 %; MCH 30.6 pg (25.0-35.0); MCHC 33.2 g/dL (31.0-37.0); MCV 92.4 fL (80.0-100.0); Mean Platelet Volume 7.2; Monocytes # (A) 0.4 k/uL (0-1.0); Monocytes % (A) 4 %; Neutrophils # (A) 8.4 k/uL (1.3-7.7); Neutrophils % (A) 83 %; RBC 3.45 m/uL (3.80-5.40); RDW 13.8 % (11.5-15.5); WBC 10.1 k/uL (3.8-10.6); WBC (Perox) 10.72
[2016-11-19 09:50] LABS: Anion Gap 9 mmol/L; Blood Urea Nitrogen 10 mg/dL (7-17); Calcium 8.8 mg/dL (8.4-10.2); Carbon Dioxide 27 mmol/L (22-30); Chloride 98 mmol/L (98-107); Glucose 102 mg/dL (74-99); Non-African American GFR(MDRD) >60 (>60 ml/min/1.73 sqM); Potassium 3.3 mmol/L (3.5-5.1); Sodium 134 mmol/L (137-145)
[2016-11-19] MEDS: VIT A,C & E-LUTEIN-MINERALS 1 EACH TAB PO SCH (10:10)
[2016-11-19] MEDS: POLYETHYLENE GLYCOL 3350 17 GM POWD.PACK PO SCH (10:10)
[2016-11-19] MEDS: ARTIFICIAL TEARS-HYPROMELLOSE DROPS 15 ML BTL BOTH EYES SCH (10:11)
[2016-11-19] MEDS: SENNOSIDES 8.6 MG TAB PO SCH ×2 (10:11→21:09)
[2016-11-19] MEDS: HEPARIN SODIUM,PORCINE 5,000 UNIT/ML 1 ML VIAL SQ SCH ×2 (10:11→21:31)
[2016-11-19] MEDS: LOSARTAN-HCTZ 50-12.5 MG 1 EACH TAB PO SCH (10:11)
[2016-11-19] MEDS: FAMOTIDINE 20 MG TAB PO SCH ×2 (10:11→21:09)
[2016-11-19] MEDS: ACETAMINOPHEN TAB 325 MG TAB PO PRN ×2 (13:16→21:10)
[2016-11-19] MEDS ORDERED: TRIAMCINOLONE ACETONIDE 40 MG/ML 1 ML VIAL INTRAARTIC ONE (15:00)
[2016-11-19] MEDS ORDERED: LIDOCAINE 2% INJ 20 MG/ML (20 ML MDV) SQ ONE (15:00)
--- NOTE | 2016-11-19 17:26 | P.CON ---
Consult Note - . Consult date: 11/19/16 Assessment/Plan:: Pt. is an 86 year-old female requesting rheumatology services this afternoon due to B/L knee pain. Pt. was initially seen in the ER on Thursday 11/16 for weakness and she did at that time have a URI with associated cough, sore throat , and sinus congestion. Pt. was afebrile at that time and she did recently complete an ABX course for her URI. Her BP was elevated at 190/88. Pt. had a CT of the abdomen/pelvis that showed fecal debris throughout the colon consistent with constipation at that time and pt. was admitted to the hospital. Pt. does have a history of chronic constipation. Pt. had a surgical consult on 11/17 for severe constipation since pt. had not had a bowel movement in the past few weeks. Pt.'s abdomen was found to be slightly distended upon examination and IVF , enema, and bowel stimulant program were initiated. Pt. was not found to have any indications of acute surgical abdomen. On 11/18, pt. was found to be tolerating her diet and she denied any abdominal pain at that time. Pt. was cleared by surgery at that time. Upon speaking with pt. today, she mentioned that the worst of her current symptoms is generalized weakness and B/L knee pain. Pt. does receive B/L knee injections every 3 months in the office and she also receives right sciatic injections regularly as well. Pt. states that she feels as though she is unable to start any rehab due to her knee pain and she has extreme difficulty with getting up and walking to the bathroom without assistance. Pt. mentions that her family was with her this morning and that they will be returning tomorrow. Pt. also adds that she may be discharged tomorrow and she will be resuming rehab at home. Today on physical examination, pt. was found to be lying in her bed comfortably. She was alert and oriented x 3. Pt.'s lungs were CTA and no adventitious sounds were noted. Normal S1 and S2. No peripheral edema was noted. Abdomen was soft and nontender to palpation. Ecchymosis was present on pt.'s B/L knees. After discussion of the risks and benefits, the pt. elected intra-articular corticosteroid injections in her bilateral knees. The pt. was assisted into a seated position with her legs hanging off of the side of her hospital bed. A nurse community assistant and nurse helped to position the pt. Pt.'s skin was sterilized with alcohol and Betadine. 1cc of triamcinolone 40 mg/ml and 2 cc of Lidocaine 2% were injected laterally in pt.'s RT knee and medially in pt.'s LT knee. The injection was completed without complication and bandages were applied. The pt. tolerated the procedure well and she was instructed to avoid strenuous activity for the next 24-48 hours. The pt. will call immediately with any signs of infection or allergic reaction. Impression: 1. B/L knee osteoarthritis 2. Lumbar radiculopathy 3. RT sciatica The pt. will be following up in the office as needed for joint injections. Pt.'s case was discussed with and agreed upon by Dr. Erickson.
--- NOTE | 2016-11-19 17:41 | P.CONS ---
History of Present Illness - Reason for Consult Consult date: 11/19/16 Bilateral knee pain Requesting physician: Chucho Rodriguez - Chief Complaint Bilateral knee pain - History of Present Illness Pt. is an 86 year-old female requesting rheumatology services this afternoon due to B/L knee pain. Pt. was initially seen in the ER on Thursday 11/16 for weakness and she did at that time have a URI with associated cough, sore throat , and sinus congestion. Pt. was afebrile at that time and she did recently complete an ABX course for her URI. Her BP was elevated at 190/88. Pt. had a CT of the abdomen/pelvis that showed fecal debris throughout the colon consistent with constipation at that time and pt. was admitted to the hospital. Pt. does have a history of chronic constipation. Pt. had a surgical consult on 11/17 for severe constipation since pt. had not had a bowel movement in the past few weeks. Pt.'s abdomen was found to be slightly distended upon examination and IVF , enema, and bowel stimulant program were initiated. Pt. was not found to have any indications of acute surgical abdomen. On 11/18, pt. was found to be tolerating her diet and she denied any abdominal pain at that time. Pt. was cleared by surgery at that time. Upon speaking with pt. today, she mentioned that the worst of her current symptoms is generalized weakness and B/L knee pain. Pt. does receive B/L knee injections every 3 months in the office and she also receives right sciatic injections regularly as well. Pt. states that she feels as though she is unable to start any rehab due to her knee pain and she has extreme difficulty with getting up and walking to the bathroom without assistance. Pt. mentions that her family was with her this morning and that they will be returning tomorrow. Pt. also adds that she may be discharged tomorrow and she will be resuming rehab at home. Review of Systems Constitutional: Reports as per HPI Past Medical History Past Medical History: Chest Pain / Angina, CVA/TIA, Hyperlipidemia, Hypertension , Myocardial Infarction ([place]), Osteoarthritis (OA), Rheumatoid Arthritis (RA) Additional Past Medical History / Comment(s): hX [place] Hx. vertigo, brain aneursym, torn rt rotator cuff, osteoporosis, fragile sensative skin, tia, jorge macular degeneration Last Myocardial Infarction Date:: 2001 History of Any Multi-Drug Resistant Organisms: None Reported Past Surgical History: Heart Catheterization With Stent Additional Past Surgical History / Comment(s): Hx lt ovary removed, cataracts removed both eyes, cardiac stent after [place] around 2001, dental implant front tooth, colonoscopy, lt carpal tunnel release, lt hand middle finger and thumb release, rt bunionectomy, benign tumor removed from rt cheek. Past Anesthesia/Blood Transfusion Reactions: Previous Problems w/ Anesthesia Additional Past Anesthesia/Blood Transfusion Reaction / Comm: early waking Date of Last Stent Placement:: 2001? Past Psychological History: No Psychological Hx Reported Additional Psychological History / Comment(s): pt lives with her daughter guzman.uses a cane and also has a walker. home has 4 steps to get into a ramp( built for her when he was alive). no outside services. Smoking Status: Former smoker Past Alcohol Use History: Rare Additional Past Alcohol Use History / Comment(s): started smoking at age 16 smoked less than 1/4 ppd, quit , in past rare etoh use, none now. Past Drug Use History: None Reported - Past Family History Father Additional Family Medical History / Comment(s): Hx. mom and dad - cardiac Medications and Allergies Home Medications Medication Instructions Recorded Confirmed Type ALPRAZolam [Xanax] 0.25 mg PO HS PRN 05/01/14 11/16/16 History Aspirin 81 mg PO MOWEFR 05/01/14 11/16/16 History Atorvastatin [Lipitor] 40 mg PO HS 05/01/14 11/16/16 History Furosemide [Lasix] 20 mg PO DAILY PRN 05/01/14 11/16/16 History Lidocaine 5% Oint [Xylocaine 5% 1 applicate TOPICAL DAILY PRN 05/01/14 11/16/16 History Oint] Losartan-Hctz 50-12.5 mg [Hyzaar 1 tab PO DIRECTED 05/01/14 11/16/16 History 50-12.5] Meclizine [Antivert] 25 mg PO TID PRN 05/01/14 11/16/16 History Nitroglycerin Sl Tabs [Nitrostat] 0.4 mg SUBLINGUAL DIRECTED PRN 05/01/14 History HYDROcodone/APAP 7.5-325MG [[place] 1 tab PO TID 06/28/14 11/16/16 History 7.5-325] Azithromycin [Zithromax Z-pack] See Taper PO DIRECTED 11/16/16 11/16/16 History Carboxymethylcellulose Sodium 1 drop BOTH EYES DAILY 11/16/16 11/16/16 History [Refresh Tears] Cholecalciferol [Vitamin D3] 1,000 unit PO DAILY 11/16/16 11/16/16 History Cyanocobalamin [Vitamin B-12 1,000 mcg SQ QMONTH 11/16/16 11/16/16 History Injection] Denosumab [Prolia] 60 mg SQ DIRECTED 11/16/16 11/16/16 History Vit A,C & E/Lutein/Minerals 1 tab PO DAILY 11/16/16 11/16/16 History [Ocuvite with Lutein Tablet] methylPREDNISolone [Medrol Dose See Taper PO DIRECTED 11/16/16 11/16/16 History Pack] Allergies Allergy/AdvReac Type Severity Reaction Status Date / Time iodine Allergy Rash/Hives Verified 11/16/16 09:20 latex Allergy Rash/Hives Verified 11/16/16 09:20 morphine Allergy Hallucinati Verified 11/16/16 09:20 ons propoxyphene napsylate Allergy Hallucinati Verified 11/16/16 09:20 [From Valentina] ons adhesive tape AdvReac Unknown Verified 11/16/16 09:20 Physical Exam Vitals: Vital Signs Temp Pulse Resp BP Pulse Ox 11/19/16 16:00 18 11/19/16 15:00 98.1 F 81 18 124/81 98 11/19/16 07:00 98.0 F 80 18 118/86 98 11/18/16 23:00 98.6 F 82 19 163/72 97 Intake and Output 11/19/16 11/19/16 11/19/16 06:59 14:59 22:59 Output Total 60 Balance -60 Output: Urine 60 Other: Voiding Method Bedpan Bedpan # Voids 0 7 # Bowel Movements 0 0 Today on physical examination, pt. was found to be lying in her bed comfortably. She was alert and oriented x 3. Pt.'s lungs were CTA and no adventitious sounds were noted. Normal S1 and S2. No peripheral edema was noted. Abdomen was soft and nontender to palpation. Ecchymosis was present on pt.'s B/L knees. Results CBC & Chem 7: 11/19/16 09:04 11/19/16 09:04 Labs: Abnormal Lab Results - Last 24 Hours (Table) 11/19/16 11/19/16 Range/Units 09:04 09:04 RBC 3.45 L (3.80-5.40) m/uL Hgb 10.6 L (11.4-16.0) gm/dL Hct 31.9 L (34.0-46.0) % Neutrophils # 8.4 H (1.3-7.7) k/uL Lymphocytes # 0.8 L (1.0-4.8) k/uL Sodium 134 L (137-145) mmol/L Potassium 3.3 L (3.5-5.1) mmol/L Glucose 102 H (74-99) mg/dL Assessment and Plan (1) Osteoarthritis of knees, bilateral Status: Acute (2) At risk for falls Status: Acute (3) Lumbar radiculopathy Status: Acute (4) Sciatica of right side Status: Acute (5) Degenerative disc disease, lumbar Status: Acute Plan: After discussion of the risks and benefits, the pt. elected intra-articular corticosteroid injections in her bilateral knees. The pt. was assisted into a seated position with her legs hanging off of the side of her hospital bed. A nurse assistant chief train dispatcher and nurse helped to position the pt. Pt.'s skin was sterilized with alcohol and Betadine. 1cc of triamcinolone 40 mg/ml and 2 cc of Lidocaine 2% were injected laterally in pt.'s RT knee and medially in pt.'s LT knee. The injection was completed without complication and bandages were applied. The pt. tolerated the procedure well and she was instructed to avoid strenuous activity for the next 24-48 hours. The pt. will call immediately with any signs of infection or allergic reaction. Impression: 1. B/L knee osteoarthritis 2. At risk for falls 3. weakness 4. Degenerative disc disease of lumbar spine 2. Lumbar radiculopathy 3. RT sciatica The pt. will be following up in the office as needed for joint injections. Dr. Erickson did speak with the pt. and pt. will be set up for at-home physical therapy and pt.'s daughter will be helping her with this. Pt.'s case was discussed with and agreed upon by Dr. Erickson. Time with Patient: Greater than 30
--- NOTE | 2016-11-19 18:10 | P.PN ---
Progress Note - Text Please disregard document titled "consult note" as this is a duplicate. - Simona Franz PA-C
[2016-11-19] MEDS: ATORVASTATIN 40 MG TAB PO SCH (21:08)
[2016-11-19] MEDS: ALPRAZolam 0.25 MG TAB PO PRN (21:10)
[2016-11-19 21:27] VITALS: RESP 16
--- NOTE | 2016-11-19 23:23 | PN ---
DATE OF SERVICE:11/19/2016 PRESENTING COMPLAINT: Tired. INTERVAL HISTORY: This patient presented with post viral fatigue syndrome and poor appetite, severe constipation and she responded well to laxative. Patient has been feeling weak and had a flare-up of arthritis in both knees, sitting on her bed, sisters and 2 daughters at the bedside. Review of systems done for constitutional, cardiovascular, GI pertinent relevant findings as above. Current medications include IV fluids. On examination, temperature 98, pulse 80, respirations 18, blood pressure 118/86, pulse ox 98% on room air. GENERAL APPEARANCE: Sitting up in bed, tired -appearing. EYES: Pupils equal, conjunctivae normal. NECK: JVD not raised. Mass not palpable. RESPIRATORY: Effort normal. Lungs are clear. CARDIOVASCULAR: First and second sounds normal. No edema. ABDOMEN: Soft, nontender. Liver and spleen not palpable. PSYCHIATRY: Alert and oriented, mood and affect were normal. MUSCULOSKELETAL: Evidence of severe osteoarthritis especially in the knees. INVESTIGATIONS: White count 10.1, hemoglobin 10.6. Potassium 3.3. ASSESSMENT: 1. Acute severe constipation causing dilated sigmoid colon which responded very well to laxatives. 2. Essential hypertension. 3. Hyperlipidemia. 4. Coronary artery disease with prior history of myocardial infarction. 5. Osteoarthritis In multiple joints. 6. History of brain aneurysm. 7. Coronary artery disease with prior history of stent in 2001. 8. Gait dysfunction, uses a cane and a walker. 9. Posterolateral fatigue syndrome. 10. Acute severe flare of osteoarthritis both knees. PLAN: Had a family meeting with the 2 daughters, sister and the patient. They wanted to see if Dr. Erickson will come in and do steroids injections in the knees. Consult being put for that. I talked about the pros and cons upon rehab versus going home. After a long discussion, it was felt that the patient will go home, we will get help and also get home care. They have asked for [facility] home care. Dr. Erickson has been consulted. Total time spent today was about 40 minutes with 25 minutes to 30 minutes of discussion.
[2016-11-20 08:03] VITALS: PULSE 79; TEMP 97.6
[2016-11-20] MEDS: FAMOTIDINE 20 MG TAB PO SCH (08:15)
[2016-11-20] MEDS: VIT A,C & E-LUTEIN-MINERALS 1 EACH TAB PO SCH (08:15)
[2016-11-20] MEDS: LOSARTAN-HCTZ 50-12.5 MG 1 EACH TAB PO SCH (08:15)
[2016-11-20] MEDS: HEPARIN SODIUM,PORCINE 5,000 UNIT/ML 1 ML VIAL SQ SCH (08:15)
[2016-11-20] MEDS: POLYETHYLENE GLYCOL 3350 17 GM POWD.PACK PO SCH (08:15)
[2016-11-20] MEDS: SENNOSIDES 8.6 MG TAB PO SCH (08:15)
[2016-11-20] MEDS: ASPIRIN 81 MG CHEW PO SCH (08:15)
[2016-11-20] MEDS: ARTIFICIAL TEARS-HYPROMELLOSE DROPS 15 ML BTL BOTH EYES SCH (08:16)
[2016-11-20] MEDS: ACETAMINOPHEN TAB 325 MG TAB PO PRN (08:16)
[2016-11-20 08:24] VITALS: BP 176/88
[2016-11-20 09:47] LABS: Basophils % (A) 0 %; CH 30.3; CHCM 33.2; Eosinophils % (A) 0 %; HCT 36.8 % (34.0-46.0); HDW 2.37; Luc # (Auto) 0.03; Luc % (Auto) 0; Lymphocytes # (A) 0.6 k/uL (1.0-4.8); Lymphocytes % (A) 6 %; MCH 29.9 pg (25.0-35.0); MCHC 32.6 g/dL (31.0-37.0); MCV 91.6 fL (80.0-100.0); Mean Platelet Volume 6.5; Monocytes # (A) 0.2 k/uL (0-1.0); Monocytes % (A) 2 %; Neutrophils # (A) 8.6 k/uL (1.3-7.7); Neutrophils % (A) 91 %; RBC 4.02 m/uL (3.80-5.40); RDW 13.5 % (11.5-15.5); WBC 9.4 k/uL (3.8-10.6); WBC (Perox) 10.03
[2016-11-20 10:02] LABS: Anion Gap 14 mmol/L; Blood Urea Nitrogen 15 mg/dL (7-17); Calcium 9.7 mg/dL (8.4-10.2); Carbon Dioxide 23 mmol/L (22-30); Chloride 96 mmol/L (98-107); Glucose 156 mg/dL (74-99); Non-African American GFR(MDRD) >60 (>60 ml/min/1.73 sqM); Potassium 3.8 mmol/L (3.5-5.1); Sodium 133 mmol/L (137-145)
[2016-11-20] MEDS ORDERED: NAPROXEN 250 MG TAB PO SCH (10:45)
--- NOTE | 2016-11-21 15:07 | DS ---
DATE OF ADMISSION: 11/16/2016 DATE OF DISCHARGE: 11/20/2016 FINAL DIAGNOSES: 1. Acute severe constipation causing dilated sigmoid colon, responded to laxative. 2. Essential hypertension. 3. Hyperlipidemia. 4. Coronary artery history with prior history of myocardial infarction. 5. Osteoarthritis of multiple joints bilateral. 6. History of brain aneurysm. 7. Coronary artery disease prior history of stent in 2001. 8. Gait dysfunction, uses a walker/cane. 9. Post vital fatigue syndrome, present at admission. 10. Acute severe flare of osteoarthritis of both knees. CONSULTATIONS: Dr. Erickson from rheumatology. HOSPITAL COURSE: This patient had a viral syndrome, presented weak and tired, unable to eat. She had not had a bowel movement for 2 weeks. Given laxatives to which she responded well, doing better, started tolerating a diet. Care was discussed with the patient's family members. They wanted to take the patient home with therapy at hand. Also for the flare up of osteoarthritis of the knees, the patient did receive steroid injection of both knees by Dr. Erickson's team. On exam, lungs clear. Cardiovascular, first and second heart sounds normal. Patient is tolerating a diet. Consultation also to Dr. Echo Elias for severe constipation. DISCHARGE MEDICATIONS: 1. Xanax 0.25 p.o. at bedtime p.r.n. 2. Aspirin 81 mg Wednesday, Wednesday and Wednesday. 3. Lipitor 40 mg at bedtime. 4. Xylocaine 5% topical p.r.n. 5. Nitrostat 0.4 sublingual every 5 hours p.r.n. 6. Pepcid 20 mg p.o. b.i.d. 7. Zofran 4 mg every 8 p.r.n. 8. ( ) 1 drop both eyes daily. 9. Vitamin D3, 1000 units p.o. daily. 10. Vitamin B12, 1000 mcg monthly. 11. Prolia 60 mg subcu as directed. 12. Ocuvite lutein 1 tablet daily. 13. Tylenol 1 tablet every 4 p.r.n. 14. Hyzaar 50 ( ) 1 tablet p.o. daily. 15. Naproxen 250 mg p.o. b.i.d., 14 tablets. 16. MiraLAX 100 grams p.o. daily as directed. FOLLOWUP: 1. Dr. Melgar in 3 days. 2. [facility] to follow. On exam, lungs are clear. Cardiovascular, first and second sounds normal. Abdomen soft. Extremities with severe osteoarthritis. The patient is able to answer simple questions.
== END 2016-11-20 12:26 | disposition home health service (06) | DRG 391 ==
LOC: EC 09:11 → 4MS4W 12:40
PROVIDERS: ADMIT Hospitalist; ATTEND Hospitalist
PROC: 3E0U33Z Introduction of Anti-inflammatory into Joints, Percutaneous Approach (ICD-10-PCS; principal; 2016-11-19)
PROC: 3E0U3BZ Introduction of Anesthetic Agent into Joints, Percutaneous Approach (ICD-10-PCS; 2016-11-19)
DX: K59.09 Other constipation (principal); G93.41 Metabolic encephalopathy; E86.0 Dehydration; M06.9 Rheumatoid arthritis, unspecified; E87.1 Hypo-osmolality and hyponatremia; I25.10 Atherosclerotic heart disease of native coronary artery without angina pectoris; I10 Essential (primary) hypertension; I16.0 Hypertensive urgency; M17.0 Bilateral primary osteoarthritis of knee; I25.2 Old myocardial infarction; E78.5 Hyperlipidemia, unspecified; M81.0 Age-related osteoporosis without current pathological fracture; F41.9 Anxiety disorder, unspecified; T40.2X5A Adverse effect of other opioids, initial encounter; H35.30 Unspecified macular degeneration; M51.16 Intervertebral disc disorders with radiculopathy, lumbar region; S80.01XA Contusion of right knee, initial encounter; S80.02XA Contusion of left knee, initial encounter; H11.32 Conjunctival hemorrhage, left eye; G93.3 Postviral and related fatigue syndromes; R11.10 Vomiting, unspecified; I44.30 Unspecified atrioventricular block; K63.89 Other specified diseases of intestine; R26.9 Unspecified abnormalities of gait and mobility; R53.1 Weakness; Z91.041 Radiographic dye allergy status; Z91.040 Latex allergy status; Z87.891 Personal history of nicotine dependence; Z95.5 Presence of coronary angioplasty implant and graft; Z86.73 Personal history of transient ischemic attack (TIA), and cerebral infarction without residual deficits; Z86.79 Personal history of other diseases of the circulatory system; Z91.81 History of falling; Z79.82 Long term (current) use of aspirin; Z79.899 Other long term (current) drug therapy; Z71.3 Dietary counseling and surveillance; Z82.49 Family history of ischemic heart disease and other diseases of the circulatory system; Z98.42 Cataract extraction status, left eye; Z98.41 Cataract extraction status, right eye; Z90.721 Acquired absence of ovaries, unilateral; Z88.5 Allergy status to narcotic agent; Z91.048 Other nonmedicinal substance allergy status; Z79.83 Long term (current) use of bisphosphonates; Z79.891 Long term (current) use of opiate analgesic; Z98.818 Other dental procedure status; Z87.311 Personal history of (healed) other pathological fracture
CPT/HCPCS: 36415; 71020; 74176; 80048; 80053; 81001; 81003; 82550; 82553; 83735; 84100; 84439; 84443; 84481; 84484; 85025; 85610; 85730; 87086; 87502; 93005; 96361; 96374; 96375; 99285

== ENCOUNTER 2017-01-14 12:01 | Inpatient (IN) | payer MEDICARE, BC ==
[2017-01-14 15:18] LABS: Basophils % (A) 1 %; CH 30.7; Eosinophils # (A) 0.1 k/uL (0-0.7); Eosinophils % (A) 2 %; HCT 37.2 % (34.0-46.0); HGB 12.2 gm/dL (11.4-16.0); Luc # (Auto) 0.12; Luc % (Auto) 2; Lymphocytes % (A) 14 %; MCH 30.7 pg (25.0-35.0); MCHC 32.8 g/dL (31.0-37.0); MCV 93.6 fL (80.0-100.0); Mean Platelet Volume 7.1; Monocytes # (A) 0.4 k/uL (0-1.0); Monocytes % (A) 6 %; Neutrophils # (A) 5.1 k/uL (1.3-7.7); Neutrophils % (A) 75 %; RBC 3.97 m/uL (3.80-5.40); WBC 6.8 k/uL (3.8-10.6); WBC (Perox) 7.36
[2017-01-14 15:27] LABS: Anion Gap 9 mmol/L; Blood Urea Nitrogen 10 mg/dL (7-17); Calcium 9.5 mg/dL (8.4-10.2); Carbon Dioxide 27 mmol/L (22-30); Chloride 102 mmol/L (98-107); Glucose 90 mg/dL (74-99); Non-African American GFR(MDRD) >60 (>60 ml/min/1.73 sqM); Potassium 3.4 mmol/L (3.5-5.1); Sodium 138 mmol/L (137-145)
[2017-01-14] MEDS ORDERED: HYDROcodone/APAP 7.5-325MG 1 EACH TAB PO PRN (15:54)
[2017-01-14] MEDS ORDERED: POLYETHYLENE GLYCOL 3350 17 GM POWD.PACK PO PRN (15:54)
[2017-01-14] MEDS ORDERED: LIDOCAINE 5% TOPICAL PRN (15:54)
[2017-01-14 15:56] LABS: Creatine Kinase MB 0.5 ng/mL (0.0-2.4); Troponin I 0.015 ng/mL (0.000-0.034)
[2017-01-14] MEDS ORDERED: MECLIZINE 25 MG TAB PO SCH (16:00)
[2017-01-14] MEDS ORDERED: DENOSUMAB 60 MG/ML 1 ML SYRINGE SQ SCH (16:45)
[2017-01-14] MEDS: ONDANSETRON ODT 4 MG TAB PO SCH ×2 (17:35→20:22)
[2017-01-14] MEDS ORDERED: Potassium Replacement Protocol 1 EACH MISC MISCELLANE PRN (18:45)
--- NOTE | 2017-01-14 19:29 | HP ---
DATE OF ADMISSION: 01/14/2017 PRESENTING COMPLAINT: Weak, tired. HISTORY OF PRESENTING COMPLAINT: This is a pleasant 86-year-old who normally follows with [facility], Dr. Cuellar. Patient's chronic stable medical conditions include hypertension, hyperlipidemia, coronary artery disease, osteoarthritis. Patient here with her daughter, Elzbieta, well known to me. Patient has been discharged from here last October and had started working with physical therapy and was doing about 30 feet and recently noticed to be becoming more lethargic tired. Heart rate noted to down in the 40s. Sometimes actually passing out. Appetite has gone down including decreased oral intake. Increasing confusion and hallucinations at times. REVIEW OF SYSTEMS: CONSTITUTIONAL: Weak, tired. HEENT: Decreased hearing. RESPIRATORY: Some shortness of breath. CARDIOVASCULAR: As above. GASTROINTESTINAL: None. GENITOURINARY: None. MUSCULOSKELETAL: Aches and pains in different joints. Dermatological: Bruising. LYMPHATICS: None. PSYCHIATRY: Forgetful, dizziness at times. NEUROLOGICAL: Generalized weakness. Past medical history of hypertension, hyperlipidemia, coronary artery disease, osteoarthritis, brain aneurysm, gait dysfunction. PAST SURGICAL HISTORY: Cardiac cath with stent, oophorectomy, bilateral cataract surgery. Cardiac stent in 2001, dental implants, left carpal tunnel release. Right bunionectomy, benign tumor removed from right cheek. SOCIAL HISTORY: Patient has got a good support with home care, Pain care and also family support. Patient started smoking at age 19, smoked less than a 1/4 pack a day, quit in . Alcohol rarely. FAMILY HISTORY: Both parents had cardiac history. HOME MEDICATIONS: 1. Midodrine 5 mg p.o. t.i.d. 2. Meclizine 25 mg p.o. t.i.d. 3. Brent 7.5 p.o. t.i.d. p.r.n. 4. Florinef 0.1 mg p.o. daily. 5. MiraLax 17 grams p.o. daily p.r.n. 6. Cipro 500 mg p.o. q.12. 7. Zofran 4 mg q.6. 8. Vitamin B12 1000 mcg subcu monthly. 9. Xylocaine 5% topical p.r.n. 10. Pepcid 20 mg p.o. b.i.d. 11. Prolia 60 mg subcu p.r.n. 12. Vitamin D 3000 units p.o. daily. 13. Refresh Tears one drop to both eyes daily. 14. Lipitor 40 mg q.h.s. 15. Aspirin 81 mg daily. 16. Xanax 0.25 p.o. q.h.s. p.r.n. ALLERGIES: IODINE, LASIX, MORPHINE, DARVOCET N100. On examination, temperature 97.1, pulse 99, respirations 16, blood pressure 160/99, pulse ox 98% on room air. GENERAL APPEARANCE: Average build, lying in bed. Tired -appearing. EYES: Pupils equal. Conjunctivae pale. HEENT: External appearance of nose and ears normal. Oral cavity normal. NECK: JVD not raised. Mass not palpable. RESPIRATORY: Effort normal. LUNGS: Slightly decreased breath sounds. CARDIOVASCULAR: Heart sounds irregular. Minimal edema. ABDOMEN: Soft, nontender. Liver and spleen not palpable. LYMPHATIC: No lymph nodes palpable in neck or axillae. PSYCHIATRY: Patient able to answer simple questions. She knows she is in the hospital, knows the year. Dermatological: Diffuse dry skin and some bruising. INVESTIGATIONS: White count 6.8, hemoglobin 12.2. Potassium 3.4. BUN creatinine are normal. Troponin 0.015. EKG reviewed by me shows variable block. ASSESSMENT: 1. Variable block sometimes 2:1. Possibly cardiac in a patient who does have recurrent syncope and bradycardia as a ventricular rate is variable. 2. Essential hypertension. 3. Hyperlipidemia. 4. Coronary artery disease with prior history of myocardial infarction and stent in 2001. 5. Primary osteoarthritis multiple joints, bilateral. 6. History of brain aneurysm. 7. Gait dysfunction, uses a walker. PLAN: Patient's home medications will be continued. Will discontinue the Midodrine. We will also discontinue the Meclizine. The patient may need a pacemaker. Will consult cardiology/Dr. Dillard for the same. Care was discussed with the daughter at the bedside. Questions answered. We will get Venodyne boots for DVT prophylaxis. Copy to [facility] Dr. Cuellar.
[2017-01-14 19:54] LABS: Amorphous Sediment,Urine Occasional /hpf; Appearance,Urine Cloudy (Clear); Bacteria,Urine Few /hpf; Bilirubin,Urine Negative (Negative); Calcium Oxalate Crystals,Urine Few /hpf; Glucose,Urine (UA) Negative (Negative); Ketones,Urine 1+ (Negative); Leukocyte Esterase,Urine Large (Negative); Mucus,Urine Rare /hpf; Nitrite,Urine Positive (Negative); PH, Urine 5.5 (5.0-8.0); Particle Count 11321; Protein,Urine 1+ (Negative); RBC,Urine 14 /hpf (0-5); Specific Gravity,Urine 1.015 (1.001-1.035); Squamous Epithelial Cell,Urine 7 /hpf (0-4); UA Billing (MACRO vs. MICRO) MICRO; WBC,Urine >182 /hpf (0-5)
[2017-01-14] MEDS: POTASSIUM CHLORIDE 10 MEQ, LIDOCAINE 2% INJ 10 MG in SODIUM CHLORIDE 0.9% 100 ML IV SCH ×2 (19:54→22:39)
[2017-01-14] MEDS: ATORVASTATIN 40 MG TAB PO SCH (20:22)
[2017-01-14] MEDS: CIPROFLOXACIN HCL 500 MG TAB PO SCH (20:22)
[2017-01-14] MEDS: FAMOTIDINE 20 MG TAB PO SCH (20:22)
--- NOTE | 2017-01-14 20:56 | CONS ---
DATE OF CONSULTATION: 86-year-old female who has been experiencing recurrent episodes of loss of consciousness. She has had these episodes for quite some time, but they have become a lot more frequent now. She is sitting up at the edge of the bed and she loses consciousness, without any convulsive activity or loss of bowel or bladder function. She has been treated with Midodrine and she has been treated with salt tablets by [facility] by Dr. Anderson. REVIEW OF SYSTEMS: No fever, chills, rigors. No cough or expectoration. No nausea, hematuria, dysuria, strokes or seizures. No skin lesions. No musculoskeletal complaints. PAST SURGICAL HISTORY: Cardiac catheterization and coronary stenting, oophorectomy, bilateral cataract surgery, dental implants, a benign tumor in the right cheek that was removed. SOCIAL HISTORY: She quit smoking many decades back. No alcohol use. FAMILY HISTORY: Noncontributory. MEDICATIONS: Medications at home include: 1. Midodrine 5 mg 3 times a day. 2. Meclizine. 3. [place]. 4. Florinef. 5. MiraLax. 6. Cipro. 7. Floxacin. 8. Zofran. 9. Lipitor. 10. Aspirin. 11. Xanax. ALLERGIES TO IODINE, LASIX MORPHINE AND DARVOCET. On examination, her blood pressure is 160/99 mmHg, heart rate is in the 90s. Heart rates in the 70s, 80s. Head and neck examination is normal. Heart sounds S1, S2 are normal. No murmurs or gallops. Breath sounds are normal. EXTREMITIES: Warm. No edema. IMPRESSION: 1. Recurrent episodes of loss of consciousness while sitting., Despite the use of Midodrine and Florinef. 2. Known coronary disease in the past status post stenting in the past. 3. Telemetry strips AV node Wenckebach block. I do not see any advanced heart block but she has not had any loss of consciousness. SUGGEST: 1. TSH level. 2. 2-D echo and Doppler study. 3. Continuous telemetry monitoring. If she has an episode of syncope I would like to see what the rhythm strip is. If we detect some bradycardia, ( ) either sinus node dysfunction or AV node dysfunction, she will need a pacemaker. At this point, we do not have any proof of the above. Episodes of AV node Wenckebach block with mild bradycardia cannot cause syncope the way it is described. I discussed this with the daughter and I would like to document her rhythm during these episodes and therefore she should be in the hospital since she is having almost daily episodes.
[2017-01-14] MEDS ORDERED: MIDODRINE 5 MG TAB PO SCH (22:00)
[2017-01-15] MEDS: SODIUM CHLORIDE 0.9% 1,000 ML IV SCH ×2 (00:12→11:59)
[2017-01-15] MEDS: ALPRAZolam 0.25 MG TAB PO PRN (00:12)
[2017-01-15] MEDS: ONDANSETRON ODT 4 MG TAB PO SCH ×4 (05:33→22:32)
[2017-01-15 06:37] LABS: Anion Gap 7 mmol/L; Blood Urea Nitrogen 8 mg/dL (7-17); Calcium 9.5 mg/dL (8.4-10.2); Carbon Dioxide 25 mmol/L (22-30); Chloride 105 mmol/L (98-107); Glucose 94 mg/dL (74-99); Magnesium 1.6 mg/dL (1.6-2.3); Non-African American GFR(MDRD) >60 (>60 ml/min/1.73 sqM); Potassium 3.6 mmol/L (3.5-5.1); Sodium 137 mmol/L (137-145)
[2017-01-15] MEDS ORDERED: POTASSIUM CHLORIDE ER 20 MEQ TAB.ER PO SCH (08:00)
[2017-01-15] MEDS ORDERED: CARBOXYMETHYLCELLULOSE SODIUM BOTH EYES SCH (09:00)
[2017-01-15] MEDS: FAMOTIDINE 20 MG TAB PO SCH (09:49)
[2017-01-15] MEDS: CIPROFLOXACIN HCL 500 MG TAB PO SCH ×2 (09:49→22:32)
[2017-01-15] MEDS: CHOLECALCIFEROL 1,000 UNIT TAB PO SCH (09:49)
[2017-01-15] MEDS: ASPIRIN 81 MG CHEW PO SCH (09:49)
[2017-01-15] MEDS: FLUDROCORTISONE 0.1 MG TAB PO SCH (09:49)
--- NOTE | 2017-01-15 09:55 | ECHOF ---
Referral Reason:syncope MEASUREMENTS -------- HEIGHT: 165.1 cm WEIGHT: 74.4 kg BP: IVSd: 1.3 cm (0.6 - 1.1) LVIDd: 3.9 cm (3.9 - 5.3) LVPWd: 1.3 cm (0.6 - 1.1) IVSs: 1.6 cm LVIDs: 2.6 cm LVPWs: 1.6 cm LAESV Index (A-L): 15.88 ml/m Ao Diam: 3.1 cm (2.0 - 3.7) AV Cusp: 1.2 cm (1.5 - 2.6) LA Diam: 3.8 cm (2.7 - 3.8) RAP: 5.00 mmHg RVSP: 31.46 mmHg FINDINGS -------- Atrial fibrillation. This was a technically adequate study. There is mild concentric left ventricular hypertrophy. Overall left ventricular systolic function is normal with, an EF between 55 - 60 %. The right ventricle is normal in size and function. Normal LA size by volume 22+/-6 ml/m2. The right atrium is normal in size. Aortic valve is trileaflet and is mildly thickened. There is no evidence of aortic regurgitation. There is no evidence of aortic stenosis. The mitral valve leaflets are mildly thickened. Mild mitral annular calcification present. There is trace to mild mitral regurgitation. Trace tricuspid regurgitation present. There is no evidence of pulmonary hypertension. The right ventricular systolic pressure, as measured by Doppler, is 31.46mmHg. The pulmonic valve was not well visualized. The aortic root size is normal. There is no pericardial effusion. CONCLUSIONS -------- 1. Atrial fibrillation. 2. There is no evidence of pulmonary hypertension. 3. The right ventricular systolic pressure, as measured by Doppler, is 31.46mmHg. 4. The pulmonic valve was not well visualized. 5. The aortic root size is normal. 6. There is no pericardial effusion. 7. There is mild concentric left ventricular hypertrophy. 8. Overall left ventricular systolic function is normal with, an EF between 55 - 60 %. 9. Normal LA size by volume 22+/-6 ml/m2. 10. Aortic valve is trileaflet and is mildly thickened. 11. The mitral valve leaflets are mildly thickened. 12. Mild mitral annular calcification present. 13. There is trace to mild mitral regurgitation. 14. Trace tricuspid regurgitation present. PIN PULLER: Ankush Joseph RDCS
[2017-01-15 10:48] VITALS: BMI 24.9
--- NOTE | 2017-01-15 11:40 | PN ---
DATE OF SERVICE: 01/15/2017 PRESENTING COMPLAINT: Weak and tired. INTERVAL HISTORY: This is an 86-year-old female who has had recurring episodes of syncope-like/bradycardic episodes in which patient loses consciousness. On exam, patient is sitting up in bed, daughter at the bedside. Patient is very hard of hearing but is awake, alert, complains of no symptoms, although overnight daughter informed examiner of a bradycardic episode into the 30s and no additional episodes were experienced. Patient has had some episodes of confusion this morning. Review of systems done for constitutional, cardiovascular, GI, pulmonary, with relevant findings as above. PHYSICAL EXAM: VITAL SIGNS: Temperature 96.8, pulse 79, respiratory rate 18, blood pressure 177/86, oxygen saturation 95% on room air. GENERAL APPEARANCE: Patient sitting up in bed, daughter at the bedside. No acute complaints, no distress noted or voiced. EYES: Pupils equal. Conjunctivae are pale. NECK: JVD not raised. Mass not palpable. Respiratory effort normal. LUNGS: Slightly decreased breath sounds. CARDIOVASCULAR: Heart sounds are regular. Trace edema noted to bilateral lower extremities. ABDOMEN: Soft, nontender. Liver and spleen not palpable. PSYCHIATRY: Patient continues to be able to answer simple questions. However, patient is very hard of hearing. Patient knows she is in the hospital, knows the year. INVESTIGATIONS: Sodium 137, potassium 3.6, BUN 8, creatinine 0.80. Echocardiogram revealed atrial fibrillation, EF of 55% to 60%, ASSESSMENT: 1. Variable block sometimes 2:1, possibly cardiac in a patient who does have recurrent syncope and bradycardia as well as ventricular rate is variable. 2. Essential hypertension. 3. Hyperlipidemia. 4. Coronary artery disease with prior history of myocardial infarction and stent in 2001. 5. Primary osteoarthritis of multiple joints, bilateral. 6. History of brain aneurysm. 7. Gait dysfunction, uses a walker. PLAN: Cardiology recommends monitoring patient's current situation to determine what the actual cause of her syncope is as Cardiology is looking for either sinus node dysfunction or AV node dysfunction in which case patient will require a pacemaker. Current medication and treatment plan will continue. Additional testing for TSH and awaiting a Doppler study to be completed. Will follow. Patient was seen and examined by nurse practitioner, Marie Amador and all elements of the case discussed with attending, Dr. Rodriguez.
--- NOTE | 2017-01-15 14:51 | P.PN ---
Subjective Principal diagnosis: recurrent loss of consciousness Is a pleasant 86-year-old female who presented to the hospital after experiencing recurrent episodes of loss of consciousness. She's had these episodes for quite some time but they have become a lot more frequent now. She loses consciousness while sitting up at the edge of the bed without any convulsive activity or loss of bowel or bladder function. She's been treated with Middaugh drained and Florinef as well as salt tablets by visiting physician. No improvement in symptoms. In reviewing telemetry strips from last night it appears patient is now only have episodes of second-degree type I during waking hours but also has episodes of second-degree type II. Patient denies any episodes of loss of consciousness through the night or this morning. She is sitting up in bed and feels fairly well. Objective - Vital Signs Vital signs: Vital Signs Temp 97.5 F L 01/15/17 12:00 Pulse 111 H 01/15/17 12:00 Resp 18 01/15/17 12:00 BP 137/78 01/15/17 12:00 Pulse Ox 97 01/15/17 12:00 Intake & Output 01/14/17 01/15/17 01/15/17 18:59 06:59 18:59 Intake Total 1100 Output Total 20 550 Balance -20 -550 1100 Weight 74.5 kg 68 kg 68 kg Intake: IV 1100 Potassium Chloride 10 meq 200 Lidocaine 2% Inj 10 mg In Sodium Chloride 0.9% 100 ml @ 100 mls/hr IV Q1HR [facility] Rx#:[id number] Sodium Chloride 0.9% 1, 900 000 ml @ 75 mls/hr IV . [id number] [facility] Rx#:[id number] Output: Urine 20 550 Other: Voiding Method Bedpan Bedpan Bedpan # Voids 1 - Exam PHYSICAL EXAMINATION: HEENT: Head is atraumatic, normocephalic. Pupils equal, round. Neck is supple. There is no elevated jugular venous pressure. HEART EXAMINATION: Heart sounds regular, S1 and S2 normal. No murmur or gallop heard. CHEST EXAMINATION: Lungs are clear to auscultation and precussion. No chest wall tenderness is noted on palpation or with deep breathing. ABDOMEN: Soft, nontender. Bowel sounds are heard. No organomegaly noted. EXTREMITIES: 2+ peripheral pulses with no evidence of peripheral edema and no calf tenderness noted. NEUROLOGIC patient is awake, alert and oriented x3. . - Labs CBC & Chem 7: 01/14/17 14:57 01/15/17 06:08 Labs: Abnormal Lab Results - Last 24 Hours (Table) 01/14/17 01/14/17 Range/Units 14:57 19:30 Potassium 3.4 L (3.5-5.1) mmol/L Urine Appearance Cloudy H (Clear) Urine Protein 1+ H (Negative) Urine Ketones 1+ H (Negative) Urine Blood Trace H (Negative) Urine Nitrite Positive H (Negative) Ur Leukocyte Esterase Large H (Negative) Urine RBC 14 H (0-5) /hpf Urine WBC >182 H (0-5) /hpf Urine WBC Clumps Many H (None) /hpf Ur Squamous Epith Cells 7 H (0-4) /hpf Calcium Oxalate Crystal Few H (None) /hpf Amorphous Sediment Occasional H (None) /hpf Urine Bacteria Few H (None) /hpf Hyaline Casts 5 H (0-2) /lpf Urine Mucus Rare H (None) /hpf Microbiology - Last 24 Hours (Table) 01/14/17 19:30 Urine Culture - Preliminary Urine,Voided Assessment and Plan Plan: Assessment and plan #1 recurrent episodes of loss of consciousness while sitting despite the use of midodrine and Florinef #2 history of coronary artery disease with stenting in the past #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 If she does lose consciousness, telemetry strips will need to be recorded as well as possible EKG. She will likely be scheduled for permanent pacemaker over the next few days. Further recommendations to follow. CUSTODIAL OFFICER note has been reviewed, I agree with a documented findings and plan of care. Patient was seen and examined.
--- NOTE | 2017-01-15 21:54 | PN ---
DATE OF SERVICE: 01/15/2017 ATTENDING NOTE: This patient was examined by me earlier today. Patient presented with recurrent syncope, EKG showing variable block. Dr. Dillard is therefore considering a pacemaker. Patient is weak and tired, somewhat delirious, eating small amounts. Patient's 2 daughters are at the bedside. On examination, patient is pleasantly confused. LUNGS: Decreased breath sounds. CARDIOVASCULAR: First and second sounds normal. Patient is answering simple questions. INVESTIGATIONS: Patient's UA is positive. Telemetry strip did show the heart rate went down to the 40s. PLAN: Continue monitoring. Patient probably will need a pacemaker. Patient is on Cipro for the UTI. Care was discussed in length with the patient and daughter at the bedside. I reviewed the note of my nurse practitioner, Ms. Amador, agree with the same and discussed with her.
[2017-01-15] MEDS: ATORVASTATIN 40 MG TAB PO SCH (22:31)
[2017-01-16] MEDS: ONDANSETRON ODT 4 MG TAB PO SCH ×4 (04:04→22:57)
[2017-01-16 07:37] LABS: Basophils % (A) 1 %; CH 30.4; CHCM 32.2; Eosinophils # (A) 0.2 k/uL (0-0.7); Eosinophils % (A) 3 %; HCT 39.6 % (34.0-46.0); HDW 2.52; HGB 12.8 gm/dL (11.4-16.0); Luc # (Auto) 0.16; Luc % (Auto) 2; Lymphocytes # (A) 1.6 k/uL (1.0-4.8); Lymphocytes % (A) 17 %; MCH 30.7 pg (25.0-35.0); MCHC 32.4 g/dL (31.0-37.0); MCV 94.9 fL (80.0-100.0); Mean Platelet Volume 7.2; Monocytes # (A) 0.5 k/uL (0-1.0); Monocytes % (A) 6 %; Neutrophils # (A) 6.7 k/uL (1.3-7.7); Neutrophils % (A) 73 %; RBC 4.17 m/uL (3.80-5.40); WBC 9.2 k/uL (3.8-10.6); WBC (Perox) 9.87
[2017-01-16 08:15] LABS: Anion Gap 9 mmol/L; Blood Urea Nitrogen 9 mg/dL (7-17); Carbon Dioxide 24 mmol/L (22-30); Chloride 105 mmol/L (98-107); Glucose 114 mg/dL (74-99); Non-African American GFR(MDRD) >60 (>60 ml/min/1.73 sqM); Potassium 3.7 mmol/L (3.5-5.1); Sodium 138 mmol/L (137-145)
[2017-01-16] MEDS: ASPIRIN 81 MG CHEW PO SCH (08:26)
[2017-01-16] MEDS: SODIUM CHLORIDE 0.9% 1,000 ML IV SCH ×2 (08:26→16:55)
[2017-01-16] MEDS: FAMOTIDINE 20 MG TAB PO SCH (08:27)
[2017-01-16] MEDS: FLUDROCORTISONE 0.1 MG TAB PO SCH (08:27)
[2017-01-16] MEDS: CHOLECALCIFEROL 1,000 UNIT TAB PO SCH (08:27)
[2017-01-16] MEDS: CIPROFLOXACIN HCL 500 MG TAB PO SCH ×2 (08:27→21:17)
[2017-01-16] MEDS ORDERED: POTASSIUM CHLORIDE ER 20 MEQ TAB.ER PO SCH (09:00)
[2017-01-16] MEDS: MAGNESIUM SULFATE-D5W PMX 1 GM in DEXTROSE/WATER 1 100ML.BAG IVPB SCH ×2 (10:12→12:10)
[2017-01-16] MEDS ORDERED: SODIUM CHLORIDE 0.9% 1,000 ML IV SCH (11:45)
[2017-01-16] MEDS ORDERED: ceFAZolin 1,000 MG in SODIUM CHLORIDE 0.9% IRRIGATIO 250 ML IRRIGATION ONE (12:00)
[2017-01-16] MEDS ORDERED: ceFAZolin 2 GM in SODIUM CHLORIDE 0.9% 100 ML IVPB ONE (12:00)
--- NOTE | 2017-01-16 12:06 | PN ---
This 86-year-old female presented with recurrent syncope. She is doing well. She has not had any syncopal spells, but she has had evidence of severe bradycardia with heart rates down to mid 30s into the 40s with sometimes a prolonged GA interval, with AV node Wenckebach block, as well as with 2:1 AV node block with severe bradycardia. Blood pressure today is 130/98 mmHg. Head and neck examination is normal. Heart rate is in the 60s. She is afebrile at 96.8. Labs are reviewed. White count is normal. Electrolytes are normal. Potassium is normal. Medications are reviewed. She is not on any AV tahmina blocking drugs and no reversible causes is noted. Blood pressure is normal. SUGGEST: Permanent pacemaker implantation for management of syncope and severe AV node disease with bradycardia. This was discussed with the family, and they are agreeable to the plan. I had a very detailed discussion with them regarding the cause of syncope, including bradycardia secondary to AV node disease, and other causes in the elderly, including low and high blood pressure. We will proceed with a single-chamber pacemaker implant today.
[2017-01-16] MEDS ORDERED: fentaNYL (PF) 50 MCG/ML 2 ML AMP ONE (14:16)
[2017-01-16] MEDS ORDERED: MIDAZOLAM 2 MG/2 ML VIAL ONE (14:16)
[2017-01-16] MEDS ORDERED: LIDOCAINE 2% INJ 20 MG/ML SQ ONE ×2 (14:46→14:53)
--- NOTE | 2017-01-16 16:04 | PCN ---
DATE OF PROCEDURE: Mrs. Kwan is an 86-year-old female who has had recurrent episodes of loss of consciousness and evidence of significant AV node disease with significant bradycardia associated with 2:1 AV block. After a detailed discussion with the family, a single-chamber pacemaker was implanted for prevention of syncope and injury, since she has been having recurrent episodes of loss of consciousness. The patient was brought to the EP lab in a fasting state. Written informed consent was obtained prior to the procedure. The left shoulder area was prepped and draped as per protocol. Lidocaine 1% was used for local anesthesia. A 4 cm incision was made parallel to the deltopectoral groove about 1.5 cm medial to it. The incision was carried down to the level of the pectoralis muscle. A subfascial pocket was made. Hemostasis was assured. The left axillary vein was accessed at single point under fluoroscopy, and via an appropriate-sized introducer sheath, the tined lead was situated in the RV apex. R waves 12 mV, pacing impedance 850 ohms, pacing threshold 0.5 v at 0.5 ms. Ten-volt test was negative. The lead was secured to the underlying pectoralis fascia using 2 non-absorbable sutures. Pocket was irrigated with antibiotic solution. Lead was connected to the generator and secured to the muscle. Wound was closed in 3 layers and dressed per protocol. The generator was a [employer] [id number], serial #[id number]. The tined lead was a [employer], model #1948, 50 cm in length, and serial #[id number]. Patient tolerated the procedure well without any acute complications. Pacing was programmed to VVI at 50 bpm.
[2017-01-16] MEDS ORDERED: ACETAMINOPHEN IV (For NPO) 1,000 MG in EMPTY BAG 1 BAG IVPB ONE (17:00)
--- NOTE | 2017-01-16 17:05 | PN ---
DATE OF SERVICE: 01/16/2017 PRESENTING COMPLAINT: Weak and tired. INTERVAL HISTORY: This is an 86-year-old female who has had recurring episodes of syncope-like bradycardic episodes where she loses consciousness. Today patient is sitting up in bed, family at the bedside. Patient is in good spirits. Tolerating her diet. She is not ambulatory but is able to assist getting from bed to the chair, and patient does require assistance for this activity. Patient seems more alert today; however, family tells examiner that she is reminiscing a lot from days gone by. Review of systems done for constitutional, cardiovascular, GI, pulmonary, with relevant findings as above. PHYSICAL EXAMINATION: VITAL SIGNS: Temperature 96.8, pulse 118, respiratory rate 18, blood pressure 130/98, oxygen saturation 95% on room air GENERAL APPEARANCE: Patient is sitting up in the bed, talkative, laughing. No acute distress noted or voiced. EYES: Pupils equal. Conjunctivae normal. NECK: JVD not raised. Mass not palpable. LUNGS: Diminished bilaterally. Some wheezing noted. Occasional cough. RESPIRATORY: Effort normal, unlabored. CARDIOVASCULAR: First and second sounds noted. Plus one edema to bilateral ankles. ABDOMEN: Soft, nontender. Liver and spleen not palpable. PSYCHIATRY: Alert and oriented by 2 to 3. Mood and affect are normal. INVESTIGATIONS: Hemoglobin 12.8, white blood cell count 9.2, platelet count 269. Sodium 138, potassium 3.7. BUN 9, creatinine 0.76. Patient will receive a permanent pacemaker later today, per Cardiology's note. ASSESSMENT: 1. Variable block, sometimes 2:1, possibly cardiac, in a patient who does have recurrent syncope and bradycardia as well as variable ventricular rate. 2. Essential hypertension. 3. Hyperlipidemia. 4. Coronary artery disease with a prior history of myocardial infarction and stent in 2001. 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 6. History of brain aneurysm. 7. Gait dysfunction; uses a walker. PLAN: Cardiology will be taking patient to the OR today for a single-chamber pacemaker implantation. Will continue current medication and treatment plan. Patient was seen and examined by nurse practitioner, Marie Amador, and all elements of the case were discussed with attending, Dr. Rodriguez.
[2017-01-16] MEDS: amLODIPine 5 MG TAB PO SCH (21:16)
[2017-01-16] MEDS: ATORVASTATIN 40 MG TAB PO SCH (21:16)
[2017-01-16] MEDS: ceFAZolin 2 GM in SODIUM CHLORIDE 0.9% 100 ML IVPB SCH (21:17)
--- NOTE | 2017-01-16 22:06 | PN ---
DATE OF SERVICE: 01/16/2017 ATTENDING NOTE: This patient was seen examined by me earlier today. I reviewed the note of my nurse practitioner, Ms. Amador, and discussed with her patient did get a pacemaker placed. Lying in bed, tired-appearing. On examination, temperature 97.6, pulse 90, respirations 18, blood pressure 118/95, pulse ox 96% on room air. RESPIRATORY: Effort normal. LUNGS: Clear. CARDIOVASCULAR: First and second seconds normal. ABDOMEN: Soft, nontender. PSYCHIATRIC: Answering simple questions. INVESTIGATIONS: White count 9.2. Urine culture unremarkable. ASSESSMENT: 1. Atrioventricular disease with a variable block, symptomatic with bradycardia and loss of consciousness. Now patient has a pacemaker in place. 2. Coronary artery disease. PLAN: Continue with medication and treatment plan. Follow.
[2017-01-16] MEDS: ACETAMINOPHEN TAB 325 MG TAB PO PRN (22:52)
[2017-01-17] MEDS: ALPRAZolam 0.25 MG TAB PO PRN (00:54)
[2017-01-17] MEDS: ceFAZolin 2 GM in SODIUM CHLORIDE 0.9% 100 ML IVPB SCH ×3 (04:00→16:15)
[2017-01-17] MEDS: ONDANSETRON ODT 4 MG TAB PO SCH ×4 (04:00→21:35)
[2017-01-17] MEDS: SODIUM CHLORIDE 0.9% 1,000 ML IV SCH (04:07)
--- NOTE | 2017-01-17 06:56 | P.PN ---
Subjective Patient appears stable. The pacemaker site is healing well. No hematoma. Blood pressure is elevated at 160/72 mmHg, respirations are normal she's afebrile Heart sounds are normal normal S1 normal S2 breath sounds are normal Abdomen is soft nontender Impression Recurrent syncope with bradycardia secondary to AV node disease, advanced AV node disease Hypertension Plan Patient was started on amlodipine 5 mg by mouth daily I stopped midodrine and Florinef Consider clonidine patch if blood pressure remains elevated Objective - Vital Signs Vital signs: Vital Signs Temp 96.8 F L 01/17/17 03:45 Pulse 84 01/17/17 03:45 Resp 16 01/17/17 03:45 BP 160/72 01/17/17 03:45 Pulse Ox 99 01/17/17 03:45 Intake & Output 01/16/17 01/16/17 01/17/17 06:59 18:59 06:59 Intake Total 700 600 Output Total 300 400 Balance 400 200 Weight 69 kg 71 kg Intake: IV 600 600 Sodium Chloride 0.9% 1, 600 600 000 ml @ 75 mls/hr IV . [id number] [facility] Rx#:[id number] Oral 100 0 Output: Urine 300 400 Other: Voiding Method Bedpan Bedpan Bedpan Incontinent # Voids 1 - Labs CBC & Chem 7: 01/16/17 07:19 01/16/17 07:19 Labs: Abnormal Lab Results - Last 24 Hours (Table) 01/16/17 Range/Units 07:19 Glucose 114 H (74-99) mg/dL Microbiology - Last 24 Hours (Table) 01/14/17 14:57 Blood Culture - Preliminary Blood No Growth after 48 hours
[2017-01-17] MEDS ORDERED: cloNIDine 0.1 MG/24HR PATCH 1 PATCH PATCH TRANSDERM SCH (08:00)
[2017-01-17] MEDS: CIPROFLOXACIN HCL 500 MG TAB PO SCH ×2 (08:18→21:35)
[2017-01-17] MEDS: CHOLECALCIFEROL 1,000 UNIT TAB PO SCH (08:18)
[2017-01-17] MEDS: ASPIRIN 81 MG CHEW PO SCH (08:18)
[2017-01-17] MEDS: FAMOTIDINE 20 MG TAB PO SCH (08:19)
[2017-01-17] MEDS ORDERED: FLUDROCORTISONE 0.1 MG TAB PO SCH (09:00)
[2017-01-17 09:08] LABS: CH 30.4; CHCM 32.3; HCT 34.1 % (34.0-46.0); HGB 11.3 gm/dL (11.4-16.0); MCH 31.4 pg (25.0-35.0); MCHC 33.2 g/dL (31.0-37.0); MCV 94.7 fL (80.0-100.0); Mean Platelet Volume 7.4; RDW 15.1 % (11.5-15.5); WBC 7.6 k/uL (3.8-10.6)
[2017-01-17 09:17] LABS: Anion Gap 8 mmol/L; Blood Urea Nitrogen 9 mg/dL (7-17); Calcium 9.5 mg/dL (8.4-10.2); Carbon Dioxide 24 mmol/L (22-30); Chloride 107 mmol/L (98-107); Glucose 97 mg/dL (74-99); Non-African American GFR(MDRD) >60 (>60 ml/min/1.73 sqM); Potassium 3.7 mmol/L (3.5-5.1); Sodium 139 mmol/L (137-145)
--- NOTE | 2017-01-17 09:19 | XR ---
EXAMINATION TYPE: XR chest 2V DATE OF EXAM: 01/17/2017 6:28 AM COMPARISON: 11/16/2016 INDICATION: Lead placement check TECHNIQUE: Single frontal view of the chest is obtained. FINDINGS: The heart size is normal. The pulmonary vasculature is normal. The lungs are clear. No pneumothorax is evident. A single lead pacemaker overlies left chest with the tip directed towards the cardiac apex. IMPRESSION: 1. No pneumothorax post pacemaker placement.
[2017-01-17] MEDS: amLODIPine 5 MG TAB PO SCH (11:44)
[2017-01-17 15:41] VITALS: RESP 18
--- NOTE | 2017-01-17 16:32 | PN ---
DATE OF SERVICE: 01/17/2017 PRESENTING COMPLAINT: Weak and tired. INTERVAL HISTORY: This is a patient who is status post pacemaker placement for episode of syncope-like bradycardic episode. Today patient is sitting up in bed arm in a sling. No family is at the bedside. Patient is able to talk to me. She ate her breakfast, tolerating the diet. Patient is not ambulatory and is able to assist getting to and from the bed and the chair with assistance. Patient seems more alert today; however, there are periodic episodes of confusion and reminiscence from days gone by. Review of systems done for constitutional, cardiovascular, GI, pulmonary with relevant findings as above. PHYSICAL EXAMINATION: VITAL SIGNS: Temperature 97.8, pulse 89, respiratory rate 16, blood pressure 141/71, oxygen saturation 100% on 2 liters nasal cannula. GENERAL APPEARANCE: Patient sitting up, looking comfortable. Left arm sling in place. EYES: Pupils equal. Conjunctivae normal. NECK: JVD not raised. Mass not palpable. LUNGS: Diminished bilaterally. RESPIRATORY: Effort normal. CARDIOVASCULAR: First and second sounds noted. Trace edema bilaterally. ABDOMEN: Soft, nontender. Liver and spleen not palpable. PSYCHIATRY: Alert and oriented x3. Mood and affect are normal. Left upper chest wall has a surgical dressing in place, pacemaker implantation noted. Outline noted. Sling is in place as well. INVESTIGATIONS: White blood cell count 7.6, hemoglobin 11.3, platelets 232. Sodium 139, potassium 3.7, BUN 9, creatinine 0.7. Chest x-ray. No pneumothorax post pacemaker placement. ASSESSMENT: 1. Atrioventricular disease with a variable block, symptomatic with bradycardia and loss of consciousness. Patient is status post pacemaker. 2. Coronary artery disease. 3. Essential hypertension. 4. Hyperlipidemia. 5. Primary osteoarthritis of multiple joints, bilateral. 6. History of a brain aneurysm. 7. Gait dysfunction, uses a walker. PLAN: Will continue current medication and treatment plan. Cardiology has adjusted patient's medications to reflect the addition of amlodipine 5 mg and stop midodrine and Florinef. Tentative discharge plan in the next 1 to 2 days provided patient remains stable. Patient was seen and examined by nurse practitioner, Marie Amador, and all elements of the case were discussed with attending, Dr. Rodriguez.
[2017-01-17] MEDS: ACETAMINOPHEN TAB 325 MG TAB PO PRN (16:41)
[2017-01-17] MEDS: ATORVASTATIN 40 MG TAB PO SCH (21:35)
[2017-01-18 06:39] LABS: CH 30.7; HCT 34.1 % (34.0-46.0); HDW 2.49; HGB 10.8 gm/dL (11.4-16.0); MCH 30.4 pg (25.0-35.0); MCHC 31.5 g/dL (31.0-37.0); MCV 96.3 fL (80.0-100.0); Mean Platelet Volume 7.1; RBC 3.54 m/uL (3.80-5.40); RDW 15.2 % (11.5-15.5); WBC 6.8 k/uL (3.8-10.6)
[2017-01-18] MEDS: ONDANSETRON ODT 4 MG TAB PO SCH ×4 (06:46→22:38)
[2017-01-18 07:24] LABS: Anion Gap 9 mmol/L; Blood Urea Nitrogen 11 mg/dL (7-17); Calcium 9.7 mg/dL (8.4-10.2); Carbon Dioxide 23 mmol/L (22-30); Chloride 107 mmol/L (98-107); Glucose 103 mg/dL (74-99); Non-African American GFR(MDRD) >60 (>60 ml/min/1.73 sqM); Potassium 3.5 mmol/L (3.5-5.1); Sodium 139 mmol/L (137-145)
--- NOTE | 2017-01-18 08:44 | PN ---
DATE OF SERVICE: 01/17/2017 ATTENDING NOTE: This patient was seen and examined by me yesterday on 01/17/2017. I reviewed the note of my nurse practitioner, Ms. Amador and discussed with her. Patient is status post pacemaker placement. Patient's two daughters at the bedside. Patient has been rather delirious, talking things ( ), but awake, sitting up. On examination, temperature 97.8, blood pressure 120/71. LUNGS: Decreased breath sounds. CHEST WALL: Pacemaker with a dressing and left arm in a sling. PSYCH: Patient is answering questions but delirious. INVESTIGATIONS: Hemoglobin 11.3, white count 7.6. ASSESSMENT: 1. AV tahmina disease with variable block, symptomatic with bradycardia, causing lose of consciousness now, has got a pacemaker in place. 2. Acute delirium, multifactorial, including being in a new surrounding. 3. Acute urinary tract infection. PLAN: Care was discussed at length with the patient's family. Blood pressure medications were adjusted. Did tell them when patient gets back to her own surroundings, she will be better.
[2017-01-18] MEDS: CHOLECALCIFEROL 1,000 UNIT TAB PO SCH (09:16)
[2017-01-18] MEDS: ASPIRIN 81 MG CHEW PO SCH (09:16)
[2017-01-18] MEDS: amLODIPine 5 MG TAB PO SCH (09:16)
[2017-01-18] MEDS: CIPROFLOXACIN HCL 500 MG TAB PO SCH ×2 (09:16→22:37)
[2017-01-18] MEDS: FAMOTIDINE 20 MG TAB PO SCH (09:17)
--- NOTE | 2017-01-18 14:30 | P.PN ---
Subjective Principal diagnosis: Syncope This is an 86-year-old female initially presented to the hospital with symptoms of recurrent episodes of loss of consciousness. She underwent implantation of a permanent pacemaker by Dr. Dillard. Patient was also experiencing significant elevated blood pressures. She was started on clonidine yesterday. Patient had been on Florinef and midodrine at home, just of of prior orthostasis. This was discontinued. We will have the patient sit up on the side of the bed today, evaluate blood pressure there as well as when she gets up to the commode. At this time we will continue current medications. Aware that the blood pressure is in the 170 systolic range. Objective - Vital Signs Vital signs: Vital Signs Temp 97.3 F L 01/18/17 11:18 Pulse 88 01/18/17 11:18 Resp 18 01/18/17 11:18 BP 180/74 01/18/17 11:18 Pulse Ox 96 01/18/17 11:18 Intake & Output 01/17/17 01/18/17 01/18/17 18:59 06:59 18:59 Intake Total 90 240 Output Total 300 400 Balance -300 -310 240 Weight 71.5 kg Intake: Oral 90 240 Output: Urine 300 400 Other: Voiding Method Bedpan Bedpan Bedpan Incontinent Incontinent Incontinent # Voids 1 1 4 # Bowel Movements 1 - Exam PHYSICAL EXAMINATION: HEENT: Head is atraumatic, normocephalic. Pupils equal, round. Neck is supple. There is no elevated jugular venous pressure. HEART EXAMINATION: Heart S1, S2 normal. No murmur or gallop heard. CHEST EXAMINATION: Lungs are clear to auscultation and precussion. No chest wall tenderness is noted on palpation or with deep breathing. Site of pacemaker implantation, dressing is dry and intact. ABDOMEN: Soft, nontender. Bowel sounds are heard. No organomegaly noted. EXTREMITIES: 2+ peripheral pulses with no evidence of peripheral edema and no calf tenderness noted. NEUROLOGIC patient is awake, alert and oriented -3. . - Labs CBC & Chem 7: 01/18/17 05:58 01/18/17 05:58 Labs: Abnormal Lab Results - Last 24 Hours (Table) 01/18/17 01/18/17 Range/Units 05:58 05:58 RBC 3.54 L (3.80-5.40) m/uL Hgb 10.8 L (11.4-16.0) gm/dL Glucose 103 H (74-99) mg/dL Microbiology - Last 24 Hours (Table) 01/14/17 14:57 Blood Culture - Preliminary Blood No Growth after 72 hours Assessment and Plan (1) Pacemaker Status: Acute (2) Syncope Status: Acute (3) HTN (hypertension) Status: Acute Plan: Cardiology's perspective, we'll continue the patient on her current medications. We will have the patient sit up at bedside to check her blood pressure and seating position as well as standing when she gets up to use the commode. The patient likely has a history of orthostatic hypotension, we will continue current medications even though the blood pressure is still marginally high. DNP note has been reviewed, I agree with a documented findings and plan of care. Patient was seen and examined.
[2017-01-18] MEDS ORDERED: QUEtiapine 25 MG TAB PO SCH (21:00)
--- NOTE | 2017-01-18 22:08 | PN ---
DATE OF SERVICE: 01/18/2017 PRESENTING COMPLAINT: Weak and tired. INTERVAL HISTORY: This is a patient who is status post pacemaker placement for an episode of syncope-like bradycardic episodes. Today patient is sitting up in bed in an arm sling. Daughter is at the bedside. Patient is able to talk to me and answer simple straightforward questions. Patient does have some confusion present about the reason that she is in the hospital, particularly, but otherwise is able to answer again straightforward simple questions. Daughter did express some concerns about the continued confusion and questions were answered. Review of systems done for constitutional, cardiovascular, GI, pulmonary, with relevant findings as above. PHYSICAL EXAMINATION: VITAL SIGNS: Temperature 97.6, pulse 99, respiratory rate 18, blood pressure 156/85 to 173/80, oxygen saturation 94% on room air. GENERAL APPEARANCE: Patient sitting up in bed, wearing her swelling on her left arm. Looks comfortable. EYES: Pupils equal. Conjunctivae normal. NECK: JVD not raised. Mass not palpable. LUNGS: Diminished bilaterally. RESPIRATORY: Effort normal, unlabored. CARDIOVASCULAR: First and second sounds noted. Trace edema noted. ABDOMEN: Soft, nontender. Liver and spleen not palpable. PSYCHIATRY: Alert and oriented x2 to 3. Mood and affect are normal. INVESTIGATIONS: White blood cell count 6.8, hemoglobin 10.8, platelet count 248, sodium 139, potassium 3.5, BUN 11, creatinine 0.78. ASSESSMENT: 1. AV node disease with variable block, symptomatic with bradycardia, causing loss of consciousness, now is status post pacemaker. 2. Acute delirium, multifactorial, including being in new surroundings. 3. Acute urinary tract infection. 4. Coronary artery disease. 5. Essential hypertension. 6. Hyperlipidemia. 7. Primary osteoarthritis of multiple joints, bilateral. 8. History of brain aneurysm. 9. Gait dysfunction uses a walker. PLAN: We will continue with current medication and treatment plan. Cardiology continuing to adjust medications to obtain good blood pressure control as patient's blood pressure today is elevated. Tentative discharge planning in the next 1 to 2 days provided patient remains stable. Patient was seen and examined by nurse practitioner, Marie Amador, and all elements of the case were discussed with attending, Dr. Rodriguez. I performed a history and physical examination of this patient and discussed the same with the dictator. I agree with the dictator's note. Any additional findings/opinions, etc. will be noted.
[2017-01-18] MEDS: ALPRAZolam 0.25 MG TAB PO PRN (22:38)
[2017-01-18] MEDS: ATORVASTATIN 40 MG TAB PO SCH (22:38)
[2017-01-19] MEDS: ONDANSETRON ODT 4 MG TAB PO SCH ×2 (05:55→09:21)
[2017-01-19 07:57] LABS: CH 30.6; CHCM 32.7; HDW 2.53; HGB 10.8 gm/dL (11.4-16.0); MCH 30.8 pg (25.0-35.0); MCHC 32.7 g/dL (31.0-37.0); MCV 94.1 fL (80.0-100.0); Mean Platelet Volume 7.2; RBC 3.51 m/uL (3.80-5.40); RDW 15.2 % (11.5-15.5)
[2017-01-19 08:21] LABS: Anion Gap 7 mmol/L; Blood Urea Nitrogen 8 mg/dL (7-17); Calcium 9.5 mg/dL (8.4-10.2); Carbon Dioxide 25 mmol/L (22-30); Chloride 107 mmol/L (98-107); Glucose 90 mg/dL (74-99); Non-African American GFR(MDRD) >60 (>60 ml/min/1.73 sqM); Potassium 3.4 mmol/L (3.5-5.1); Sodium 139 mmol/L (137-145)
--- NOTE | 2017-01-19 08:35 | PN ---
DATE OF SERVICE: 01/18/2017 Attending note: This patient is seen and examined by me earlier today. I reviewed the notes of my nurse practitioner, Ms. Amador and discussed with her. Patient's daughter is at bedside. Patient is lying in bed. The patient knows she is at [facility], knows the year is 2016. Also she is unable to identify the daughter, ( ). On examination, blood pressure 156/85. Left arm in a sling. LUNGS: Decreased breath sounds. PSYCH: Awake, answering questions as above. INVESTIGATIONS: White count 6.8, potassium 3.5. Urine culture showing kamran. ASSESSMENT: 1. Status post pacemaker placement for AV tahmina disease. 2. Acute delirium, multifactorial, actually improving. 3. Acute urinary tract infection. PLAN: Care was discussed at length with the daughter at the bedside. I think the patient is doing reasonably well. Will add a small dose Seroquel at night. Probably discharge tomorrow.
[2017-01-19] MEDS: CHOLECALCIFEROL 1,000 UNIT TAB PO SCH (09:21)
[2017-01-19] MEDS: FAMOTIDINE 20 MG TAB PO SCH (09:21)
[2017-01-19] MEDS: ASPIRIN 81 MG CHEW PO SCH (09:21)
[2017-01-19] MEDS: amLODIPine 5 MG TAB PO SCH (09:21)
[2017-01-19] MEDS: CIPROFLOXACIN HCL 500 MG TAB PO SCH (09:21)
[2017-01-19 11:57] VITALS: BP 138/80; PULSE 84; TEMP 96.4
--- NOTE | 2017-01-19 15:57 | P.PN ---
Subjective Principal diagnosis: Syncope This is an 86-year-old female initially presented to the hospital with symptoms of recurrent episodes of loss of consciousness. She underwent implantation of a permanent pacemaker by Dr. Dillard. Patient was also experiencing significant elevated blood pressures. She was started on clonidine Patient had been on Florinef and midodrine at home, just of of prior orthostasis. This was discontinued. Blood pressure 152/80. Objective - Vital Signs Vital signs: Vital Signs Temp 96.4 F L 01/19/17 11:53 Pulse 84 01/19/17 11:53 Resp 18 01/19/17 11:53 BP 138/80 01/19/17 11:53 Pulse Ox 95 01/19/17 11:53 Intake & Output 01/18/17 01/19/17 01/19/17 18:59 06:59 18:59 Intake Total 240 460 Output Total 200 Balance 240 -200 460 Weight 70 kg Intake: Oral 240 460 Output: Urine 200 Other: Voiding Method Bedpan Bedpan Bedpan Incontinent Incontinent Incontinent # Voids 1 2 2 - Exam PHYSICAL EXAMINATION: HEENT: Head is atraumatic, normocephalic. Pupils equal, round. Neck is supple. There is no elevated jugular venous pressure. HEART EXAMINATION: Heart S1, S2 normal. No murmur or gallop heard. CHEST EXAMINATION: Lungs are clear to auscultation and precussion. No chest wall tenderness is noted on palpation or with deep breathing. Site of pacemaker implantation, dressing is dry and intact. ABDOMEN: Soft, nontender. Bowel sounds are heard. No organomegaly noted. EXTREMITIES: 2+ peripheral pulses with no evidence of peripheral edema and no calf tenderness noted. NEUROLOGIC patient is awake, alert and oriented -3. . - Labs CBC & Chem 7: 01/19/17 07:01 01/19/17 07:01 Labs: Abnormal Lab Results - Last 24 Hours (Table) 01/19/17 01/19/17 Range/Units 07:01 07:01 RBC 3.51 L (3.80-5.40) m/uL Hgb 10.8 L (11.4-16.0) gm/dL Hct 33.0 L (34.0-46.0) % Potassium 3.4 L (3.5-5.1) mmol/L Microbiology - Last 24 Hours (Table) 01/14/17 14:57 Blood Culture - Preliminary Blood No Growth after 96 hours Assessment and Plan (1) Pacemaker Status: Acute (2) Syncope Status: Acute (3) HTN (hypertension) Status: Acute Plan: Cardiology's perspective, we'll continue the patient on her current medications. She may be able to be discharged home once cleared by the primary. We will make her a follow-up appointment in the office and with the device clinic post discharge. DNP note has been reviewed, I agree with a documented findings and plan of care. Patient was seen and examined.
[2017-01-19] MEDS ORDERED: FAMOTIDINE 20 MG TAB PO SCH (21:00)
--- NOTE | 2017-01-20 08:40 | DS ---
DATE OF ADMISSION: 01/14/2017 DATE OF DISCHARGE: 01/19/2017 FINAL DIAGNOSES: 1. 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 2. Acute delirium, multifactorial, including being in his surroundings. 3. Acute urinary tract infection. 4. Coronary artery disease. 5. Essential hypertension. 6. Hyperlipidemia. 7. Primary osteoarthritis of multiple joints bilaterally. 8. History of brain aneurysm. 9. Gait dysfunction uses a walker. Consultations with Dr. Dillard from cardiology. HOSPITAL COURSE: This is a patient who presented to the hospital with symptoms of recurrent episodes of loss of consciousness. She underwent a permanent implantation of a permanent pacemaker by Dr. Grimes. Patient was also found to be hypertensive. She was started on clonidine patch. Blood pressure on discharge was 152/80. Patient had several episodes of delirium and reorientation therapy was provided by staff and by family. Patient was on Xanax, which was discontinued. Seroquel was the replacement. Patient has had tolerating her diet, up in the bed, works with physical therapy, patient is ambulatory with assistance and as such patient is prepared for discharge. On exam, chest wall left upper chest wall surgical dressing remains in place. You can see the outline of the permanent pacemaker. Patient's arm remains in a sling. CARDIOVASCULAR: First and second sounds noted. Trace edema. Blood pressure 152/80. DISCHARGE MEDICATIONS: 1. Aspirin 81 mg p.o. daily. 2. Atorvastatin 40 mg p.o. at bedtime. 3. Lidocaine 5% ointment one application topical b.i.d. p.r.n. 4. Nitroglycerin subungual tablet 0.4 mg sublingual q.5 minutes p.r.n. 5. Famotidine 20 mg p.o. b.i.d. 6. Carboxymethylcellulose sodium one drop both eyes daily. 7. Cholecalciferol 1000 units p.o. daily. 8. Cyanocobalamin 1000 mcg subcu monthly. 9. ( ) 60 mg subcu as directed. 10. Hydrocodone/APAP 7.5/ 325 mg 7.5 mg p.o. t.i.d. p.r.n. 11. Ondansetron ODT 4 mg p.o. q.6 hours. 12. Polyethylene glycol 17 grams p.o. daily. 13. Quetiapine 12.5 mg at bedtime. 14. ( ) 5 mg p.o. daily. 15. Clonidine one patch each weekly. Follow up with Dr. Dillard in one week. Follow up with Dr. Cuellar on 01/26/2017. [facility] will report to the home to open the case 01/20/2017. Time taken more than 35 minutes, including discussion. Patient was seen and examined by nurse practitioner Marie Amador, and all elements of the case and discharge discussed with attending, Dr. Rodriguez.
--- NOTE | 2017-01-21 09:56 | DS ---
DATE OF ADMISSION: 01/14/2017 DATE OF DISCHARGE: 01/19/2017 ATTENDING NOTE: FINAL DIAGNOSES: 1. AV node with variable block, symptomatic bradycardia, needed a pacemaker placement. 2. Acute delirium, multifactorial. I reviewed the discharge note summary note by my nurse practitioner, Ms. Amador. Agreed with same. This patient was admitted with episode of passing out, found to be AV tahmina block with bradycardia, got a pacemaker with Dr. Dillard. The patient also had acute delirium, was getting better. Also treated for UTI. Day of discharge care was discussed in detail with the patient and family at the bedside. Patient will overall doing much better. Patient's blood pressure medications were adjusted. Patient is to follow with visiting physician and by Dr. Dillard. DC planning more than 35 minutes. On examination, lungs clear air entry, minimal tenderness over the pacemaker site. Patient able to answer simple questions.
== END 2017-01-19 15:24 | disposition home health service (06) | DRG 243 ==
LOC: 6SEL 13:30
PROVIDERS: ADMIT Hospitalist; ATTEND Hospitalist
PROC: 3E0234Z Introduction of Serum, Toxoid and Vaccine into Muscle, Percutaneous Approach (ICD-10-PCS; 2017-01-14)
PROC: 0JH604Z Insertion of Pacemaker, Single Chamber into Chest Subcutaneous Tissue and Fascia, Open Approach (ICD-10-PCS; 2017-01-16)
PROC: 02HK3JZ Insertion of Pacemaker Lead into Right Ventricle, Percutaneous Approach (ICD-10-PCS; principal; 2017-01-16 13:36)
DX: I44.1 Atrioventricular block, second degree (principal); N39.0 Urinary tract infection, site not specified; F05 Delirium due to known physiological condition; R44.3 Hallucinations, unspecified; I44.39 Other atrioventricular block; I10 Essential (primary) hypertension; R00.1 Bradycardia, unspecified; R55 Syncope and collapse; I25.10 Atherosclerotic heart disease of native coronary artery without angina pectoris; H91.90 Unspecified hearing loss, unspecified ear; E78.5 Hyperlipidemia, unspecified; R53.1 Weakness; I25.2 Old myocardial infarction; M19.91 Primary osteoarthritis, unspecified site; R32 Unspecified urinary incontinence; R26.9 Unspecified abnormalities of gait and mobility; Z95.5 Presence of coronary angioplasty implant and graft; Z79.899 Other long term (current) drug therapy; Z79.82 Long term (current) use of aspirin; Z87.891 Personal history of nicotine dependence; Z23 Encounter for immunization; Z79.891 Long term (current) use of opiate analgesic; Z79.52 Long term (current) use of systemic steroids; Z86.79 Personal history of other diseases of the circulatory system; Z91.041 Radiographic dye allergy status; Z91.040 Latex allergy status; Z88.5 Allergy status to narcotic agent; Z91.048 Other nonmedicinal substance allergy status; Z71.3 Dietary counseling and surveillance; Z98.42 Cataract extraction status, left eye; Z98.41 Cataract extraction status, right eye; Z82.49 Family history of ischemic heart disease and other diseases of the circulatory system; Z90.721 Acquired absence of ovaries, unilateral; Z97.2 Presence of dental prosthetic device (complete) (partial)
CPT/HCPCS: 33207; 71020; 80048; 81001; 82553; 83605; 83735; 84443; 84484; 85025; 85027; 87040; 87086; 93306

== ENCOUNTER 2019-05-03 12:01 | Inpatient (IN) | payer MEDICARE, BC ==
[2019-05-03] MEDS ORDERED: IPRATROPIUM-ALBUTEROL 3 ML NEB INHALATION STA ×2 (12:08→14:22)
[2019-05-03] MEDS ORDERED: SODIUM CHLORIDE 0.9% 1,000 ML IV STA ×2 (12:08)
--- NOTE | 2019-05-03 12:14 | ED ---
Weakness HPI - General Chief complaint: Altered Mental Status Stated complaint: Dehydrated, Poss Sepsis Time Seen by Provider: 05/03/19 12:07 Source: EMS, RN notes reviewed, old records reviewed Mode of arrival: EMS Limitations: no limitations - History of Present Illness Initial comments: This is an 88-year-old female the ER for evaluation. Patient presents today for evaluation regards to weakness severe. Patient presents with her daughter today. Patient's brought in by EMS. Patient was seen by last night she was weak and not as weak as she has today. Patient was unable to get out of bed today and was incontinent of urine in her bed which patient states was the first time in her life. She states she was incontinent that she couldn't hold her urine because she could not have the strength to get out of bed she has vomited once has had significant cough and congestion coughing up mucus and sputum when shortness of breath. She feels significantly weak and very thirsty. Denying fevers EMS presents for low-grade fever. Patient has not taken any medications. Last hospitalization was greater than year ago MD Complaint: generalized weakness, lack of energy, difficulty walking (Inability to get out of bed) -: hour(s) Location: generalized Severity: moderate Severity scale (1-10): 7 Quality: other (No pain) Consistency: constant Worsens with: movement, exertion Context: recent illness (Cough and congestion), history of similar Associated Symptoms: fever/chills, loss of appetite, nausea/vomiting, shortness of breath - Related Data Home Medications Medication Instructions Recorded Confirmed Aspirin 81 mg PO Q7D 05/01/14 05/03/19 Atorvastatin [Lipitor] 40 mg PO HS 05/01/14 05/03/19 Nitroglycerin Sl Tabs [Nitrostat] 0.4 mg SUBLINGUAL Q5M PRN 05/01/14 05/03/19 Cholecalciferol [Vitamin D3 (25 1,000 unit PO DAILY 11/16/16 05/03/19 Mcg = 1000 Iu)] Ondansetron Odt [Zofran ODT] 4 mg PO Q6H PRN 01/14/17 05/03/19 ALPRAZolam [Xanax] 0.5 mg PO DAILY PRN 05/03/19 05/03/19 Biotin 5 mg PO DAILY 05/03/19 05/03/19 Cetirizine HCl [Zyrtec] 10 mg PO DAILY 05/03/19 05/03/19 Furosemide [Lasix] 20 mg PO DAILY PRN 05/03/19 05/03/19 HYDROcodone/APAP 5-325MG [Clover 1 tab PO BID 05/03/19 05/03/19 5-325] Losartan [Cozaar] 50 mg PO DAILY 05/03/19 05/03/19 predniSONE 10 mg PO DAILY 05/03/19 05/03/19 Previous Rx's Medication Instructions Recorded Famotidine [Pepcid] 20 mg PO BID #30 tablet 06/28/14 Allergies Allergy/AdvReac Type Severity Reaction Status Date / Time iodine Allergy Rash/Hives Verified 05/03/19 12:16 latex Allergy Rash/Hives Verified 05/03/19 12:16 morphine Allergy Hallucinati Verified 05/03/19 12:16 ons propoxyphene napsylate Allergy Hallucinati Verified 05/03/19 12:16 [From Valentina] ons adhesive tape AdvReac Unknown Verified 05/03/19 12:16 Review of Systems ROS Statement: Those systems with pertinent positive or pertinent negative responses have been documented in the HPI. ROS Other: All systems not noted in ROS Statement are negative. Past Medical History Past Medical History: Chest Pain / Angina, CVA/TIA, Hyperlipidemia, Hypertension, Myocardial Infarction (AL), Osteoarthritis (OA), Rheumatoid Arthritis (RA) Additional Past Medical History / Comment(s): hX tunica-biloxi Hx. vertigo, brain aneursym, torn rt rotator cuff, osteoporosis, fragile sensative skin, tia, jorge macular degeneration, constipation, daughter relates "that pt has had syncopal episodes and that her heart rate goes as low as the 40's", uti Last Myocardial Infarction Date:: 2001 History of Any Multi-Drug Resistant Organisms: None Reported Past Surgical History: Heart Catheterization With Stent Additional Past Surgical History / Comment(s): Hx lt ovary removed, cataracts removed both eyes, cardiac stent after AL around 2001, dental implant front tooth, colonoscopy, lt carpal tunnel release, lt hand middle finger and thumb release, rt bunionectomy, benign tumor removed from rt cheek. Past Anesthesia/Blood Transfusion Reactions: Previous Problems w/ Anesthesia Additional Past Anesthesia/Blood Transfusion Reaction / Comment(s): early waking Date of Last Stent Placement:: 2001? Past Psychological History: No Psychological Hx Reported Smoking Status: Former smoker - Past Family History Father Additional Family Medical History / Comment(s): Hx. mom and dad - cardiac General Exam Limitations: no limitations General appearance: alert, lethargic Head exam: Present: atraumatic, normocephalic, normal inspection Eye exam: Present: normal appearance, PERRL, EOMI. Absent: scleral icterus, conjunctival injection, periorbital swelling ENT exam: Present: normal exam, mucous membranes dry Neck exam: Present: normal inspection. Absent: tenderness, meningismus, lymphadenopathy Respiratory exam: Present: rhonchi, decreased breath sounds, prolonged expiratory. Absent: respiratory distress, wheezes, rales, stridor Cardiovascular Exam: Present: regular rate, normal rhythm, normal heart sounds. Absent: systolic murmur, diastolic murmur, rubs, gallop, clicks GI/Abdominal exam: Present: soft, normal bowel sounds. Absent: distended, tenderness, guarding, rebound, rigid Extremities exam: Present: normal inspection, full ROM, normal capillary refill. Absent: tenderness, pedal edema, joint swelling, calf tenderness Back exam: Present: normal inspection Neurological exam: Present: alert, oriented X3, CN II-XII intact Psychiatric exam: Present: normal affect, normal mood Skin exam: Present: warm, dry, intact, normal color. Absent: rash Course Vital Signs 05/03/19 05/03/19 05/03/19 12:05 12:42 12:53 Temperature 100.9 F H Pulse Rate 92 92 92 Respiratory 18 Rate Blood Pressure 133/57 O2 Sat by Pulse 96 Oximetry 05/03/19 14:00 Temperature Pulse Rate 74 Respiratory 22 Rate Blood Pressure 130/90 O2 Sat by Pulse 93 L Oximetry - Reevaluation(s) Reevaluation #1: 05/03/19 12:14 Records reviewed Reevaluation #2: 05/03/19 14:55 The patient improved mildly with hydration Reevaluation #3: 05/03/19 14:55 Spoke with family regarding results, questions answered - Consultations Consultation #1: Spoke with Dr. Rodriguez regarding admission he is agreeable EKG Findings - EKG Comments: EKG Findings:: EKG shows sinus rhythm rate of 85, QRS 70, QTc 414 Medical Decision Making - Medical Decision Making 88 female the ER for evaluation patient presents today for evaluation of weakness and inability to get of bed today. Patient currently feeling mildly improved with hydration here in the ER does have right upper lobe pneumonia, will be placed on IV antibiotics patient's troponin mildly elevated which we will trend. Denying chest pain. - Lab Data Result diagrams: 05/03/19 12:40 05/03/19 12:40 Lab Results 05/03/19 05/03/19 05/03/19 Range/Units 12:40 12:40 12:40 WBC 12.9 H (3.8-10.6) k/uL RBC 3.93 (3.80-5.40) m/uL Hgb 11.9 (11.4-16.0) gm/dL Hct 36.6 (34.0-46.0) % MCV 93.3 (80.0-100.0) fL MCH 30.4 (25.0-35.0) pg MCHC 32.5 (31.0-37.0) g/dL RDW 14.5 (11.5-15.5) % Plt Count 274 (150-450) k/uL Neutrophils % 90 % Lymphocytes % 4 % Monocytes % 4 % Eosinophils % 1 % Basophils % 1 % Neutrophils # 11.6 H (1.3-7.7) k/uL Lymphocytes # 0.5 L (1.0-4.8) k/uL Monocytes # 0.5 (0-1.0) k/uL Eosinophils # 0.1 (0-0.7) k/uL Basophils # 0.1 (0-0.2) k/uL Manual Slide Review Performed Poikilocytosis (manual Present PT (9.0-12.0) sec INR (<1.2) APTT (22.0-30.0) sec Sodium 130 L (137-145) mmol/L Potassium 4.6 (3.5-5.1) mmol/L Chloride 95 L (98-107) mmol/L Carbon Dioxide 24 (22-30) mmol/L Anion Gap 11 mmol/L BUN 24 H (7-17) mg/dL Creatinine 0.96 (0.52-1.04) mg/dL Est GFR (CKD-EPI)AfAm 62 (>60 ml/min/1.73 sqM) Est GFR (CKD-EPI)NonAf 53 (>60 ml/min/1.73 sqM) Glucose 100 H (74-99) mg/dL Plasma Lactic Acid Ramo 1.5 (0.7-2.0) mmol/L Calcium 8.9 (8.4-10.2) mg/dL Phosphorus 3.7 (2.5-4.5) mg/dL Magnesium 1.8 (1.6-2.3) mg/dL Total Bilirubin 1.5 H (0.2-1.3) mg/dL AST 27 (14-36) U/L ALT 16 (9-52) U/L Alkaline Phosphatase 69 (38-126) U/L Creatine Kinase 37 (30-135) U/L Troponin I (0.000-0.034) ng/mL NT-Pro-B Natriuret Pep pg/mL Total Protein 6.2 L (6.3-8.2) g/dL Albumin 3.6 (3.5-5.0) g/dL Urine Color Urine Appearance (Clear) Urine pH (5.0-8.0) Ur Specific [place] (1.001-1.035) Urine Protein (Negative) Urine Glucose (UA) (Negative) Urine Ketones (Negative) Urine Blood (Negative) Urine Nitrite (Negative) Urine Bilirubin (Negative) Urine Urobilinogen (<2.0) mg/dL Ur Leukocyte Esterase (Negative) Influenza Type A RNA (Not Detectd) Influenza Type B (PCR) (Not Detectd) 05/03/19 05/03/19 05/03/19 Range/Units 12:40 12:40 12:40 WBC (3.8-10.6) k/uL RBC (3.80-5.40) m/uL Hgb (11.4-16.0) gm/dL Hct (34.0-46.0) % MCV (80.0-100.0) fL MCH (25.0-35.0) pg MCHC (31.0-37.0) g/dL RDW (11.5-15.5) % Plt Count (150-450) k/uL Neutrophils % % Lymphocytes % % Monocytes % % Eosinophils % % Basophils % % Neutrophils # (1.3-7.7) k/uL Lymphocytes # (1.0-4.8) k/uL Monocytes # (0-1.0) k/uL Eosinophils # (0-0.7) k/uL Basophils # (0-0.2) k/uL Manual Slide Review Poikilocytosis (manual PT 13.6 H (9.0-12.0) sec INR 1.3 H (<1.2) APTT 22.9 (22.0-30.0) sec Sodium (137-145) mmol/L Potassium (3.5-5.1) mmol/L Chloride (98-107) mmol/L Carbon Dioxide (22-30) mmol/L Anion Gap mmol/L BUN (7-17) mg/dL Creatinine (0.52-1.04) mg/dL Est GFR (CKD-EPI)AfAm (>60 ml/min/1.73 sqM) Est GFR (CKD-EPI)NonAf (>60 ml/min/1.73 sqM) Glucose (74-99) mg/dL Plasma Lactic Acid Ramo (0.7-2.0) mmol/L Calcium (8.4-10.2) mg/dL Phosphorus (2.5-4.5) mg/dL Magnesium (1.6-2.3) mg/dL Total Bilirubin (0.2-1.3) mg/dL AST (14-36) U/L ALT (9-52) U/L Alkaline Phosphatase (38-126) U/L Creatine Kinase (30-135) U/L Troponin I 0.147 H* (0.000-0.034) ng/mL NT-Pro-B Natriuret Pep 3600 pg/mL Total Protein (6.3-8.2) g/dL Albumin (3.5-5.0) g/dL Urine Color Urine Appearance (Clear) Urine pH (5.0-8.0) Ur Specific [place] (1.001-1.035) Urine Protein (Negative) Urine Glucose (UA) (Negative) Urine Ketones (Negative) Urine Blood (Negative) Urine Nitrite (Negative) Urine Bilirubin (Negative) Urine Urobilinogen (<2.0) mg/dL Ur Leukocyte Esterase (Negative) Influenza Type A RNA (Not Detectd) Influenza Type B (PCR) (Not Detectd) 05/03/19 05/03/19 Range/Units 12:50 Unknown WBC (3.8-10.6) k/uL RBC (3.80-5.40) m/uL Hgb (11.4-16.0) gm/dL Hct (34.0-46.0) % MCV (80.0-100.0) fL MCH (25.0-35.0) pg MCHC (31.0-37.0) g/dL RDW (11.5-15.5) % Plt Count (150-450) k/uL Neutrophils % % Lymphocytes % % Monocytes % % Eosinophils % % Basophils % % Neutrophils # (1.3-7.7) k/uL Lymphocytes # (1.0-4.8) k/uL Monocytes # (0-1.0) k/uL Eosinophils # (0-0.7) k/uL Basophils # (0-0.2) k/uL Manual Slide Review Poikilocytosis (manual PT (9.0-12.0) sec INR (<1.2) APTT (22.0-30.0) sec Sodium (137-145) mmol/L Potassium (3.5-5.1) mmol/L Chloride (98-107) mmol/L Carbon Dioxide (22-30) mmol/L Anion Gap mmol/L BUN (7-17) mg/dL Creatinine (0.52-1.04) mg/dL Est GFR (CKD-EPI)AfAm (>60 ml/min/1.73 sqM) Est GFR (CKD-EPI)NonAf (>60 ml/min/1.73 sqM) Glucose (74-99) mg/dL Plasma Lactic Acid Ramo (0.7-2.0) mmol/L Calcium (8.4-10.2) mg/dL Phosphorus (2.5-4.5) mg/dL Magnesium (1.6-2.3) mg/dL Total Bilirubin (0.2-1.3) mg/dL AST (14-36) U/L ALT (9-52) U/L Alkaline Phosphatase (38-126) U/L Creatine Kinase (30-135) U/L Troponin I (0.000-0.034) ng/mL NT-Pro-B Natriuret Pep pg/mL Total Protein (6.3-8.2) g/dL Albumin (3.5-5.0) g/dL Urine Color Yellow Urine Appearance Clear (Clear) Urine pH 5.0 (5.0-8.0) Ur Specific [place] 1.022 (1.001-1.035) Urine Protein Trace H (Negative) Urine Glucose (UA) Negative (Negative) Urine Ketones Trace H (Negative) Urine Blood Negative (Negative) Urine Nitrite Negative (Negative) Urine Bilirubin Negative (Negative) Urine Urobilinogen 3.0 (<2.0) mg/dL Ur Leukocyte Esterase Negative (Negative) Influenza Type A RNA Not Detected (Not Detectd) Influenza Type B (PCR) Not Detected (Not Detectd) - Radiology Data Radiology results: report reviewed (Chest x-ray shows right upper lobe pneumonia), image reviewed Disposition Clinical Impression: Weakness, NSTEMI (non-ST elevated myocardial infarction), Community acquired pneumonia Disposition: ADMITTED IP TO THIS [facility] Condition: Serious Is patient prescribed a controlled substance at d/c from ED?: No Referrals: Damion Cuellar MD [Primary Care Provider] - 1-2 days
[2019-05-03 13:00] LABS: INR 1.3 (<1.2); Partial Thromboplastin Time 22.9 sec (22.0-30.0); Prothrombin Time 13.6 sec (9.0-12.0)
[2019-05-03 13:10] LABS: Albumin 3.6 g/dL (3.5-5.0); Basophils # (A) 0.1 k/uL (0-0.2); Basophils % (A) 1 %; Calcium 8.9 mg/dL (8.4-10.2); Eosinophils # (A) 0.1 k/uL (0-0.7); Eosinophils % (A) 1 %; HCT 36.6 % (34.0-46.0); HGB 11.9 gm/dL (11.4-16.0); Lymphocytes # (A) 0.5 k/uL (1.0-4.8); Lymphocytes % (A) 4 %; MCH 30.4 pg (25.0-35.0); MCHC 32.5 g/dL (31.0-37.0); MCV 93.3 fL (80.0-100.0); Magnesium 1.8 mg/dL (1.6-2.3); Mean Platelet Volume 7.2; Monocytes # (A) 0.5 k/uL (0-1.0); Monocytes % (A) 4 %; Neutrophils # (A) 11.6 k/uL (1.3-7.7); Neutrophils % (A) 90 %; Phosphorus 3.7 mg/dL (2.5-4.5); Platelet Count 274 k/uL (150-450); Potassium 4.6 mmol/L (3.5-5.1); RBC 3.93 m/uL (3.80-5.40); RDW 14.5 % (11.5-15.5); Total Bilirubin 1.5 mg/dL (0.2-1.3); Total Protein 6.2 g/dL (6.3-8.2); WBC 12.9 k/uL (3.8-10.6)
[2019-05-03 13:28] LABS: Poikilocytosis (M) Present
[2019-05-03 14:15] LABS: Appearance,Urine Clear (Clear); Bilirubin,Urine Negative (Negative); Blood,Urine Negative (Negative); Color,Urine Yellow; Glucose,Urine (UA) Negative (Negative); Ketones,Urine Trace (Negative); Leukocyte Esterase,Urine Negative (Negative); Nitrite,Urine Negative (Negative); Protein,Urine Trace (Negative); Specific Gravity,Urine 1.022 (1.001-1.035)
--- NOTE | 2019-05-03 14:17 | XR ---
EXAMINATION TYPE: XR chest 2V DATE OF EXAM: 05/03/2019 COMPARISON: 01/17/2017 TECHNIQUE: PA and lateral views submitted. HISTORY: Fever and weakness. FINDINGS: Cardiac device is seen in the heart is enlarged with suggestion of a coronary artery stent. Hypertrop hic and degenerative change of the spine. There is a right upper lobe area of consolidation. Single l ead overlies the region of the right ventricle. No sizable pneumothorax. IMPRESSION: 1. Masslike area of consolidation right upper lobe appears multifocal and is new from the prior exam. Correlate for pneumonia. Underlying malignancy or neoplasm in the differential diagnosis. Correlate with CT of the chest. 2. Cardiac device appears in good position. A Yellow level critical message alert has been initiated for Georgina Erickson MD via the [employer] Critical Results System on 05/03/2019 2:14 PM. This message alert has been sent to Georgina Erickson MD via the preferences provided by the clinician for the receipt of Radiology Critical Findings. Iggli e ID [id number].
[2019-05-03] MEDS ORDERED: ASPIRIN 81 MG PO STA (14:22)
[2019-05-03] MEDS ORDERED: NITROGLYCERIN SL TABS 0.4 MG TAB SUBLINGUAL PRN (14:22)
[2019-05-03] MEDS ORDERED: LEVOFLOXACIN 750MG-D5W PMX 750 MG in DEXTROSE/WATER 1 150ML.BAG IVPB STA (14:22)
[2019-05-03] MEDS ORDERED: PIPERACILLIN-TAZOBACTAM 3.375 GM in SODIUM CHLORIDE 0.9% 100 ML IVPB STA (14:22)
[2019-05-03] MEDS ORDERED: PNEUMONIA PROTOCOL UTILIZED 1 EACH MISC PO PRN (14:22)
[2019-05-03] MEDS: SODIUM CHLORIDE 0.9% 1,000 ML IV SCH ×2 (14:56→23:55)
[2019-05-03] MEDS ORDERED: FAMOTIDINE 20 MG/2 ML VIAL IV STA (14:57)
[2019-05-03] MEDS ORDERED: diphenhydrAMINE 50 MG/ML 1 ML VIAL IVP STA (14:57)
[2019-05-03] MEDS ORDERED: methylPREDNISolone SOD SUCCI 125 MG/2 ML VIAL IV STA (14:57)
--- NOTE | 2019-05-03 15:45 | CT ---
CT CHEST FOR PULMONARY EMBOLISM. EXAMINATION TYPE: CT angio chest DATE OF EXAM: 05/03/2019 INDICATION: Possible sepsis, dehydrated CT DLP: 336.7 mGycm, Automated exposure control for dose reduction was used. CONTRAST: Patient injected with 80, only 40 ml left to inject mL of Isovue 370. COMPARISON: None TECHNIQUE: CT of the chest is performed on a spiral scan at 2 mm thick sections. Study is performed with intravenous contrast timed for evaluation for pulmonary embolism. This will limit additional po rtions of the evaluation. 3-D MIP images reconstructed by the technologist are reviewed on the compu ter in the coronal and sagittal planes. FINDINGS: No persistent filling defects are evident to suggest an acute pulmonary embolism. No mediastinal or hilar adenopathy enlarged by CT criteria is evident. The ascending aorta diameter at the level of the main pulmonary artery is 3.5 cm. The main pulmonary artery diameter at the bifur cation is 3.0 cm. The consolidation or mass in the posterior right lung base. Compressive atelectasis likely at the lef t lung base. There is an irregular mass within the right middle lobe measuring 3.2 x 2.3 cm. There is a consolidation or mass along the major fissures bilaterally. A mass in the superior medial left upp er lung field may be present measuring 5.2 x [address] section through the upper abdomen are unremarkable. IMPRESSIONS: 1. Bilateral lung consolidations such as pneumonia and/or underlying masses. Workup for neoplasm is r ecommended. 2. No acute pulmonary embolism.
[2019-05-03] MEDS: IPRATROPIUM-ALBUTEROL 3 ML NEB INHALATION SCH ×2 (16:04→19:35)
[2019-05-03 16:28] LABS: Glucose,Whole Blood 121 mg/dL (75-99)
[2019-05-03 16:31] VITALS: BMI 23.1
[2019-05-03] MEDS: PIPERACILLIN-TAZOBACTAM 3.375 GM in SODIUM CHLORIDE 0.9% 100 ML IVPB SCH (23:53)
[2019-05-04 05:40] LABS: HCT 33.5 % (34.0-46.0); HGB 11.4 gm/dL (11.4-16.0); MCH 31.4 pg (25.0-35.0); MCV 92.3 fL (80.0-100.0); Mean Platelet Volume 8.7; RBC 3.63 m/uL (3.80-5.40); RDW 14.6 % (11.5-15.5); WBC 6.3 k/uL (3.8-10.6)
[2019-05-04] MEDS: IPRATROPIUM-ALBUTEROL 3 ML NEB INHALATION SCH ×4 (06:55→19:30)
[2019-05-04 08:03] LABS: Albumin 3.2 g/dL (3.5-5.0); Calcium 8.8 mg/dL (8.4-10.2); Potassium 4.4 mmol/L (3.5-5.1); Total Bilirubin 0.9 mg/dL (0.2-1.3); Total Protein 5.6 g/dL (6.3-8.2)
--- NOTE | 2019-05-04 08:25 | XR ---
EXAMINATION TYPE: XR chest 1V DATE OF EXAM: 05/04/2019 COMPARISON: 05/03/2019 HISTORY: Weakness TECHNIQUE: Single frontal view of the chest is obtained. FINDINGS: Bilateral infiltrate and pleural effusion suggestive with limited inspiration. Cardiac dev ice noted. Arthropathy of the shoulders with diffuse osteopenia. No pneumothorax. Areas of more focal consolidation the right upper lobe are less pronounced on today's exam. IMPRESSION: 1. Improving areas of masslike consolidation in the right upper lobe. 2. Subsegmental basilar consolidation may been the basis of atelectasis secondary to poor inspiration rather than pneumonia correlate clinically.
[2019-05-04] MEDS: PIPERACILLIN-TAZOBACTAM 3.375 GM in SODIUM CHLORIDE 0.9% 100 ML IVPB SCH ×2 (08:59→17:37)
[2019-05-04] MEDS: SODIUM CHLORIDE 0.9% 1,000 ML IV SCH ×2 (09:00→21:19)
[2019-05-04] MEDS: ATORVASTATIN 80 MG TAB PO SCH (09:00)
[2019-05-04] MEDS ORDERED: ASPIRIN 325 MG TAB PO SCH (09:00)
--- NOTE | 2019-05-04 10:14 | CONS ---
CONSULTATION Ms. Kwan is an 88-year-old female who is seen for cardiac evaluation and abnormal troponin. Patient's electronic medical records, lab tests, medications, old charts, all reviewed. Patient came to the emergency room because she has been feeling severely weak for the last couple of days. She was not able to get out of the bed. She did have some fever at home. She was also incontinent of the urine and she had been having some congestive cough. She denied any chest pain. This patient does have a history of syncope and she has a permanent permanent pacemaker. Patient has a history of hypertension. She had a prior history of coronary artery disease with angina. Patient's physical activities are limited but she is not having any exertional chest discomfort with her routine activities. PAST MEDICAL HISTORY: Includes a history of cardiac stent after myocardial infarction in 2001, colonoscopy, history of bunionectomy, benign tumor removed from the cheek and history of permanent pacemaker, prior history of possible CVA, history of rheumatoid arthritis. HOME MEDICATIONS: Include aspirin, Lipitor 40 mg daily, Xanax 0.5 mg daily, Zyrtec, hydrocodone, Cozaar 50 mg daily and prednisone 10 mg daily for the arthritis. REVIEW OF THE SYSTEM: Otherwise unremarkable. PHYSICAL EXAMINATION: At present reveals an 88-year-old female who does not appear to be in any acute distress. The patient's initial temperature was 100.9 in the emergency room and oxygen saturation was 93%. HEENT: Examination is negative. Neck is supple. There is no increase in jugular venous pressure. Both the carotid pulses are felt, there is no bruit. Chest is symmetrical. Heart, the PMI is not felt. First and second heart sounds are normal. No murmurs are noted. Lungs reveal bilateral scattered rhonchi. Abdomen is soft. Extremities peripheral pulses are 1+. Patient's EKG shows normal sinus rhythm with a Wenckebach type AV block without any ischemic changes. Chest CTA was negative for pulmonary embolism and shows bilateral consolidation suggestive of pneumonia. Patient's electrolytes are normal. Initial troponin was 0.147. Subsequent troponin is down to 0.068. Patient's initial white count was 12,900. FINAL IMPRESSION: 1. This patient is primarily admitted with generalized weakness and cough and congestion with chest x-ray and CT scan are suggestive of pneumonia. 2. Patient has a permanent pacemaker but recurrent syncope and Mobitz-type intermittent high-degree AV block. 3. Patient has a mild rise in the troponin without any symptoms of chest pain or EKG changes suggestive of ischemia. This could be secondary to type 2 myocardial injury because of pneumonia and infection. The are no ischemic changes on the electrocardiogram. RECOMMENDATIONS: At present, I will recommend to treat the patient with continue Lipitor, baby aspirin and Lopressor and echo and Doppler study will be done to rule out any significant wall motion abnormality. Continue the treatment for pneumonia. [id number] / IJN: [id number] /
[2019-05-04] MEDS: METOPROLOL TARTRATE 25 MG TAB PO SCH ×2 (10:20→21:18)
[2019-05-04] MEDS: LOSARTAN 25 MG TAB PO SCH (10:20)
--- NOTE | 2019-05-04 10:52 | ECHOF ---
Referral Reason:Assess LV function MEASUREMENTS -------- HEIGHT: 165.1 cm WEIGHT: 66.2 kg BP: 93/7 RVIDd: 3.5 cm (< 3.3) IVSd: 1.2 cm (0.6 - 1.1) LVIDd: 4.1 cm (3.9 - 5.3) LVPWd: 1.2 cm (0.6 - 1.1) IVSs: 1.7 cm LVIDs: 2.6 cm LVPWs: 1.5 cm LA Diam: 3.6 cm (2.7 - 3.8) LAESV Index (A-L): 35.34 ml/m Ao Diam: 3.2 cm (2.0 - 3.7) AV Cusp: 2.2 cm (1.5 - 2.6) MV EXCURSION: 10.738 mm (> 18.000) MV EF SLOPE: 56 mm/s (70 - 150) EPSS: 0.7 cm AV maxP.32 mmHg AV meanP.91 mmHg RAP: 5.00 mmHg RVSP: 37.35 mmHg FINDINGS -------- Atrial fibrillation. This was a technically adequate study. The left ventricular size is normal. There is borderline concentric left ventricular hypertrophy. Overall left ventricular systolic function is normal with, an EF between 60 - 65 %. The right ventricle is mildly enlarged. LA is moderately dilated 34-39 ml/m2 The right atrium is normal in size. Aneurysmal Interatrial septum. The aortic valve is trileaflet and appears structurally normal. Peak/mean gradient across the Aorti c Valve is 16.32mmHg / 7.91mmHg. The mitral valve leaflets are mildly thickened. Mild mitral annular calcification present. Mild m itral regurgitation is present. Mild tricuspid regurgitation present. There is mild pulmonary hypertension. The right ventricular systolic pressure, as measured by Doppler, is 37.35mmHg. Trace/mild (physiologic) pulmonic regurgitation. The aortic root size is normal. IVC Not well visulized. There is no pericardial effusion. CONCLUSIONS -------- 1. Atrial fibrillation. 2. This was a technically adequate study. 3. The left ventricular size is normal. 4. There is borderline concentric left ventricular hypertrophy. 5. Overall left ventricular systolic function is normal with, an EF between 60 - 65 %. 6. The right ventricle is mildly enlarged. 7. LA is moderately dilated 34-39 ml/m2 8. The right atrium is normal in size. 9. Aneurysmal Interatrial septum. 10. The aortic valve is trileaflet and appears structurally normal. 11. Peak/mean gradient across the Aortic Valve is 16.32mmHg / 7.91mmHg. 12. The mitral valve leaflets are mildly thickened. 13. Mild mitral annular calcification present. 14. Mild mitral regurgitation is present. 15. Mild tricuspid regurgitation present. 16. There is mild pulmonary hypertension. 17. The right ventricular systolic pressure, as measured by Doppler, is 37.35mmHg. 18. Trace/mild (physiologic) pulmonic regurgitation. 19. The aortic root size is normal. 20. IVC Not well visulized. 21. There is no pericardial effusion. BOTTLED BEVERAGE INSPECTOR: Kathleen Carvalho RDCS
[2019-05-04] MEDS ORDERED: LEVOFLOXACIN 750MG-D5W PMX 750 MG in DEXTROSE/WATER 1 150ML.BAG IVPB SCH (15:00)
[2019-05-04] MEDS ORDERED: ALPRAZolam 0.5 MG TAB PO PRN (16:48)
[2019-05-04] MEDS ORDERED: FUROSEMIDE 20 MG TAB PO PRN (16:48)
[2019-05-04] MEDS ORDERED: NON FORMULARY DRUG (Biotin [Biotin] 5 MG) PO SCH (17:00)
[2019-05-04] MEDS ORDERED: ASPIRIN 81 MG PO SCH (17:00)
[2019-05-04] MEDS: HYDROCORTISONE SUCCINATE 100 MG/2 ML VIAL IV SCH (17:38)
--- NOTE | 2019-05-04 17:45 | P.HPIM ---
History of Present Illness H&P Date: 05/04/19 Chief Complaint: Week with the cough History of presenting complaint: This is a very pleasant 88-year-old patient of Dr. Cuellar from visiting physician. Chronic stable medical conditions include hypertension, hyperlipidemia, coronary artery disease with prior IA, osteoarthritis, gait aneurysm, coronary stent in 2001, gait dysfunction uses a walker. Patient lives with her daughter. Patient presents with symptoms of increasing congested in the chest. Mucous-type sputum production.. Decreased appetite. Had a low- grade fever up to 100. His got a cough. Not able to bring up much. Up. Feeling weak tired rundown. Admitted for the same. Patient's daughter Elzbieta's by the bedside. Not able to get around much for the last few days. Also be bradycardic. Patient also been having recurrent passing out episodes at home. Review of systems: GEN.: Weak and tired EYES: None HEENT: Decreased hearing NECK: None RESPIRATORY: As above CARDIOVASCULAR: No chest pain GASTROINTESTINAL: None GENITOURINARY: None MUSCULOSKELETAL: Pain in the joints LYMPHATICS: None HEMATOLOGICAL: None PSYCHIATRY: Forgetful NEUROLOGICAL: Uses a cane Past medical history: To include Hypertension, hyperlipidemia, coronary artery disease with prior IA, primary osteoarthritis, gait dysfunction uses a walker, coronary artery disease with stent in 2001, Social history: Lives the daughter Micheline. Patient started smoking age of 16 smoked less than a quarter pack per day stopped in . Really drank alcohol Family history: Both her parents had heart disease Physical examination: VITAL SIGNS: 100.9, 92, 18, 1 33 x 57, 96% room air GENERAL: BMI 24.4, sitting up in a chair reclining tired appearing awake. EYES: Pupils equal. Conjunctiva normal. HEENT: External appearance of nose and ears normal, oral cavity grossly normal, decreased hearing. NECK: JVD unable to assess; masses not palpable. HEART: First and second heart sounds are normal; no edema. LUNGS: Respiratory rate increased, decreased breath sounds on expiration and some expiratory crackles. ABDOMEN: Soft, nontender, liver spleen not palpable, no masses palpable. PSYCH: [Awake albuterol answer simple questions l. NEUROLOGICAL: Cranial nerves grossly intact; no facial asymmetry, power and sensation grossly intact. LYMPHATICS: No lymph nodes palpable in the axilla and neck MUSCULAR skeletal: Evidence of OA especially in the hands Investigations: White count 12.9 hemoglobin 11.9 potassium 4.6 creatinine 0.96 Troponin I 0.0147 proBNP 3600 influenza AB-. EKG tracing personally reviewed by me-shows type II block Checks to x-ray film shows infiltrate versus mass Assessment: -Bilateral pneumonia, could be underlying myelomatous secondary bacterial cannot be ruled out -Second degree AV block, and a patient with permanent pacemaker -Essential hypertension -Hyperlipidemia -Coronary artery disease with stent in 2001 -Primary osteoarthritis -Gait dysfunction uses a walker -Troponin leak due to hemodynamic mismatch. Not acute coronary syndrome - Plan: Continue IV Zosyn. Also bronchodilators. Patient is on prednisone 10 mg a day. We'll give her stress dose of IV hydrocortisone. Home medications were resumed. Care was discussed the patient daughter the bedside. Given her age prognosis is guarded. We'll also add some Mucomyst. Past Medical History Past Medical History: Coronary Artery Disease (CAD), Chest Pain / Angina, CVA/TIA, Eye Disorder, Hearing Disorder / Deafness, Hyperlipidemia, Hypertension, Myocardial Infarction (IA), Osteoarthritis (OA), Rheumatoid Arthritis (RA), Syncope Additional Past Medical History / Comment(s): hX [place] Hx. vertigo, brain aneursym, torn rt rotator cuff, osteoporosis, fragile sensative skin, tia, jorge macular degeneration, constipation, daughter relates "that pt has had syncopal episodes and that her heart rate goes as low as the 40's", uti Last Myocardial Infarction Date:: 2001 History of Any Multi-Drug Resistant Organisms: None Reported Past Surgical History: Heart Catheterization With Stent Additional Past Surgical History / Comment(s): Hx lt ovary removed, cataracts removed both eyes, cardiac stent after IA around 2001, dental implant front tooth, colonoscopy, lt carpal tunnel release, lt hand middle finger and thumb release, rt bunionectomy, benign tumor removed from rt cheek. Past Anesthesia/Blood Transfusion Reactions: Previous Problems w/ Anesthesia Additional Past Anesthesia/Blood Transfusion Reaction / Comment(s): early waking Date of Last Stent Placement:: 2001 Past Psychological History: No Psychological Hx Reported Additional Psychological History / Comment(s): pt lives with her daughter micheline.per daughter pthas been bed bound last 3 weeks-(syncopal episodes/low hr in the 40's. Has been recieving home half-way services thru [facility](nurse pt/ot).has 4 steps to get into a ramp(built for her when he was alive). no outside services. Smoking Status: Former smoker Past Alcohol Use History: Rare Additional Past Alcohol Use History / Comment(s): started smoking at age 16 smoked less than 1/4 ppd, quit , in past rare etoh use, none now. Past Drug Use History: None Reported - Past Family History Father Additional Family Medical History / Comment(s): Hx. mom and dad - cardiac Medications and Allergies Home Medications Medication Instructions Recorded Confirmed Type Aspirin 81 mg PO Q7D 05/01/14 05/03/19 History Atorvastatin [Lipitor] 40 mg PO HS 05/01/14 05/03/19 History Nitroglycerin Sl Tabs [Nitrostat] 0.4 mg SUBLINGUAL Q5M PRN 05/01/14 05/03/19 History Famotidine [Pepcid] 20 mg PO BID #30 tablet 06/28/14 05/03/19 Rx Cholecalciferol [Vitamin D3 (25 1,000 unit PO DAILY 11/16/16 05/03/19 History Mcg = 1000 Iu)] Ondansetron Odt [Zofran ODT] 4 mg PO Q6H PRN 01/14/17 05/03/19 History ALPRAZolam [Xanax] 0.5 mg PO DAILY PRN 05/03/19 05/03/19 History Biotin 5 mg PO DAILY 05/03/19 05/03/19 History Cetirizine HCl [Zyrtec] 10 mg PO DAILY 05/03/19 05/03/19 History Furosemide [Lasix] 20 mg PO DAILY PRN 05/03/19 05/03/19 History HYDROcodone/APAP 5-325MG [Mona 1 tab PO BID 05/03/19 05/03/19 History 5-325] Losartan [Cozaar] 50 mg PO DAILY 05/03/19 05/03/19 History predniSONE 10 mg PO DAILY 05/03/19 05/03/19 History HYDROcodone/APAP 7.5-325MG [Mona 7.5 - 325 PO TID 05/04/19 History 7.5-325] HYDROcodone/APAP 7.5-325MG [Mona 7.5 - 325 PO TID PRN 05/04/19 History 7.5-325] Allergies Allergy/AdvReac Type Severity Reaction Status Date / Time iodine Allergy Rash/Hives Verified 05/03/19 12:16 latex Allergy Rash/Hives Verified 05/03/19 12:16 morphine Allergy Hallucinati Verified 05/03/19 12:16 ons propoxyphene napsylate Allergy Hallucinati Verified 05/03/19 12:16 [From Darjaynet-N] ons adhesive tape AdvReac Unknown Verified 05/03/19 12:16 Physical Exam Vitals: Vital Signs Temp Pulse Resp BP Pulse Ox 05/04/19 08:00 86 12 93/77 05/04/19 07:07 85 05/04/19 06:55 80 05/04/19 04:00 98.0 F 71 20 138/90 97 05/04/19 02:00 83 22 05/04/19 00:00 98.0 F 70 18 126/66 05/03/19 22:00 85 20 133/69 05/03/19 20:00 98.3 F 90 22 130/62 05/03/19 19:35 89 05/03/19 16:00 98.5 F 90 16 131/61 96 05/03/19 15:47 90 18 100 05/03/19 15:10 90 05/03/19 14:00 74 22 130/90 93 L 05/03/19 12:53 92 05/03/19 12:42 92 05/03/19 12:05 100.9 F H 92 18 133/57 96 Intake and Output 05/03/19 05/04/19 05/04/19 22:59 06:59 14:59 Intake Total 200 100 100 Output Total 0 0 400 Balance 200 100 -300 Intake: IV 200 100 100 Levofloxacin 750Mg-D5w 100 Pmx 750 mg In Dextrose/ Water 1 150ml.bag @ 100 mls/hr IVPB ONCE STA Rx#: [id number] Piperacillin-Tazobactam 3 100 100 .375 gm In Sodium Chloride 0.9% 100 ml @ 200 mls/hr IVPB ONCE STA Rx#:[id number] Sodium Chloride 0.9% 1, 100 000 ml @ 100 mls/hr IV . Q10H TARAS Rx#:[id number] Output: Urine 0 0 400 Other: # Voids 1 1 Weight 66.6 kg Results CBC & Chem 7: 05/04/19 05:21 05/04/19 05:21 Labs: Abnormal Lab Results - Last 24 Hours (Table) 05/03/19 05/03/19 05/03/19 Range/Units 12:40 12:40 12:40 WBC 12.9 H (3.8-10.6) k/uL RBC (3.80-5.40) m/uL Hct (34.0-46.0) % Neutrophils # 11.6 H (1.3-7.7) k/uL Lymphocytes # 0.5 L (1.0-4.8) k/uL PT 13.6 H (9.0-12.0) sec INR 1.3 H (<1.2) Sodium 130 L (137-145) mmol/L Chloride 95 L (98-107) mmol/L Carbon Dioxide (22-30) mmol/L BUN 24 H (7-17) mg/dL Creatinine (0.52-1.04) mg/dL Glucose 100 H (74-99) mg/dL POC Glucose (mg/dL) (75-99) mg/dL Total Bilirubin 1.5 H (0.2-1.3) mg/dL Troponin I (0.000-0.034) ng/mL Total Protein 6.2 L (6.3-8.2) g/dL Albumin (3.5-5.0) g/dL HDL Cholesterol (40-60) mg/dL Urine Protein (Negative) Urine Ketones (Negative) 05/03/19 05/03/19 05/03/19 Range/Units 12:40 16:02 18:49 WBC (3.8-10.6) k/uL RBC (3.80-5.40) m/uL Hct (34.0-46.0) % Neutrophils # (1.3-7.7) k/uL Lymphocytes # (1.0-4.8) k/uL PT (9.0-12.0) sec INR (<1.2) Sodium (137-145) mmol/L Chloride (98-107) mmol/L Carbon Dioxide (22-30) mmol/L BUN (7-17) mg/dL Creatinine (0.52-1.04) mg/dL Glucose (74-99) mg/dL POC Glucose (mg/dL) 121 H (75-99) mg/dL Total Bilirubin (0.2-1.3) mg/dL Troponin I 0.147 H* 0.128 H* (0.000-0.034) ng/mL Total Protein (6.3-8.2) g/dL Albumin (3.5-5.0) g/dL HDL Cholesterol (40-60) mg/dL Urine Protein (Negative) Urine Ketones (Negative) 05/03/19 05/04/19 05/04/19 Range/Units Unknown 00:33 05:21 WBC (3.8-10.6) k/uL RBC (3.80-5.40) m/uL Hct (34.0-46.0) % Neutrophils # (1.3-7.7) k/uL Lymphocytes # (1.0-4.8) k/uL PT (9.0-12.0) sec INR (<1.2) Sodium 133 L (137-145) mmol/L Chloride (98-107) mmol/L Carbon Dioxide 21 L (22-30) mmol/L BUN 23 H (7-17) mg/dL Creatinine 1.11 H (0.52-1.04) mg/dL Glucose 161 H (74-99) mg/dL POC Glucose (mg/dL) (75-99) mg/dL Total Bilirubin (0.2-1.3) mg/dL Troponin I 0.068 H* (0.000-0.034) ng/mL Total Protein 5.6 L (6.3-8.2) g/dL Albumin 3.2 L (3.5-5.0) g/dL HDL Cholesterol 82 H (40-60) mg/dL Urine Protein Trace H (Negative) Urine Ketones Trace H (Negative) 05/04/19 Range/Units 05:21 WBC (3.8-10.6) k/uL RBC 3.63 L (3.80-5.40) m/uL Hct 33.5 L (34.0-46.0) % Neutrophils # (1.3-7.7) k/uL Lymphocytes # (1.0-4.8) k/uL PT (9.0-12.0) sec INR (<1.2) Sodium (137-145) mmol/L Chloride (98-107) mmol/L Carbon Dioxide (22-30) mmol/L BUN (7-17) mg/dL Creatinine (0.52-1.04) mg/dL Glucose (74-99) mg/dL POC Glucose (mg/dL) (75-99) mg/dL Total Bilirubin (0.2-1.3) mg/dL Troponin I (0.000-0.034) ng/mL Total Protein (6.3-8.2) g/dL Albumin (3.5-5.0) g/dL HDL Cholesterol (40-60) mg/dL Urine Protein (Negative) Urine Ketones (Negative)
[2019-05-04] MEDS: guaiFENesin 600 MG TABLET.ER PO SCH (21:18)
[2019-05-04] MEDS: ENOXAPARIN 40 MG/0.4 ML SYRINGE SQ SCH (21:18)
[2019-05-04] MEDS: HYDROcodone/APAP 5-325MG 1 EACH TAB PO SCH (21:18)
[2019-05-04] MEDS: FAMOTIDINE 20 MG TAB PO SCH (21:18)
[2019-05-05] MEDS: HYDROCORTISONE SUCCINATE 100 MG/2 ML VIAL IV SCH ×3 (00:26→15:31)
[2019-05-05] MEDS: PIPERACILLIN-TAZOBACTAM 3.375 GM in SODIUM CHLORIDE 0.9% 100 ML IVPB SCH ×4 (00:30→23:11)
[2019-05-05] MEDS: SODIUM CHLORIDE 0.9% 1,000 ML IV SCH ×2 (06:07→15:23)
--- NOTE | 2019-05-05 08:08 | XR ---
EXAMINATION TYPE: XR chest 1V portable DATE OF EXAM: 05/05/2019 COMPARISON: 05/04/2019 HISTORY: History of shortness of breath TECHNIQUE: Single frontal view of the chest is obtained. FINDINGS: Reticular opacity in the right lung apex appears subtle and stable from the prior. Consoli dation at the right lung base is again masslike.This is unchanged from the prior. Minimal atelectasis at the left lung base is seen. Hilar prominence is noted bilaterally airspace disease medially in th e left upper lobe is noted in the aorticopulmonary window and above the aortic arch. Diffuse osseous demineralization is seen. Cardiomediastinal silhouette is within normal limits with single lead left- sided cardiac device. IMPRESSION: Multifocal airspace disease is again seen, appearing somewhat masslike and nodular on th e prior CT. Follow-up with CT thorax after treatment is recommended to ensure no persistent mass or n odule.
[2019-05-05] MEDS: IPRATROPIUM-ALBUTEROL 3 ML NEB INHALATION SCH ×4 (08:11→19:21)
[2019-05-05] MEDS: ENOXAPARIN 40 MG/0.4 ML SYRINGE SQ SCH (08:33)
[2019-05-05] MEDS: guaiFENesin 600 MG TABLET.ER PO SCH ×2 (08:33→20:39)
[2019-05-05] MEDS: ATORVASTATIN 80 MG TAB PO SCH (08:33)
[2019-05-05] MEDS: FAMOTIDINE 20 MG TAB PO SCH ×2 (08:33→20:39)
[2019-05-05] MEDS: ASPIRIN 81 MG PO SCH (08:33)
[2019-05-05] MEDS: LOSARTAN 25 MG TAB PO SCH (08:34)
[2019-05-05] MEDS: METOPROLOL TARTRATE 25 MG TAB PO SCH ×2 (08:34→20:39)
[2019-05-05] MEDS: HYDROcodone/APAP 5-325MG 1 EACH TAB PO SCH (08:34)
[2019-05-05] MEDS: ACETAMINOPHEN TAB 325 MG TAB PO PRN (15:19)
[2019-05-05] MEDS: SENNOSIDES-DOCUSATE SODIUM 1 EACH TAB PO PRN (15:20)
--- NOTE | 2019-05-05 16:41 | CDI ---
Documentation Clarification Form Date: 05/05/2019 4:11:08 PM From: Nancy Dai RN, CCDS Admit Date: 05/03/2019 2:22:00 PM Patient Name: Gifty Kwan Visit Number: [id number] Discharge Date: ATTENTION: The Clinical Documentation Specialists (CDI) and [facility] Coding Staff appreciate your assistance in clarifying documentation. Please respond to the clarification below the line at the bottom and electronically sign. The CDI & [facility] Coding staff will review the response and follow-up if needed. Please note: Queries are made part of the Legal Health Record. If you have any questions, please contact the author of this message via ITS. Dr. Rogers Davis The patient presented with complaints of weakness. Cardiology was consulted for evaluation of abnormal troponin. In your impression on 05/03/19: Mild rise in the troponin without any symptoms of chest pain or EKG changes. suggestive of ischemia. This could be secondary to type 2 myocardial injury and further clarification is needed. History/Risk Factors: CVA, Myocardial infarction (2001) Permanent pacemaker, Hypertension Clinical Indicators: 88-year-old female came to ER feeling severely weak. with congestive cough. She has no exertional chest discomfort with her routine activities. Lab findings: Troponin 0.1147, 0.128, 0.068 Chest x-ray: suggestive of pneumonia Vital Signs: 133/57 92 18 1.9 96 % RA ECHO: Overall left systolic function is normal with, an EF between 60-65 % Treatment: Monitor Labs, Serial Troponin Zosyn IV Bronchodilators Solu-Corter IV Levaquin IV In your professional opinion, can you please further clarify type 2 myocardial injury? Type 2 myocardial Infarction due to pneumonia and infection Other, please specify Unable to determine (Last Revision: November 2017) MTDD
--- NOTE | 2019-05-05 21:06 | P.PN ---
Progress Note - Text Progress Note Date: 05/05/19 Chief Complaint: Week with the cough Interval history: This is a very pleasant 88-year-old patient of Dr. Cuellar from visiting physician. Chronic stable medical conditions include hypertension, hyperlipidemia, coronary artery disease with prior [place], osteoarthritis, gait aneurysm, coronary stent in 2001, gait dysfunction uses a walker. Patient lives with her daughter. Patient presents with symptoms of increasing congested in the chest. Mucous-type sputum production.. Decreased appetite. Had a low- grade fever up to 100. His got a cough. Not able to bring up much. Up. Feeling weak tired rundown. Admitted for the same. Patient's daughter Elzbieta's by the bedside. Not able to get around much for the last few days. Also be bradycardic. Patient also been having recurrent passing out episodes at home. Patient admitted with bilateral pneumonia. Today-sitting up in a chair. Started to eat better. Patient's daughter Elzbieta the bedside. Breathing better. Review of systems: Was done for constitutional, cardiovascular, GI, pulmonary. relevant finding as above Active Medications Acetaminophen (Tylenol Tab) 650 mg PO Q4HR PRN PRN Reason: Fever and/ or Pain Last Admin: 05/05/19 15:19 Dose: 650 mg Documented by: Hydrocodone Bitart/Acetaminophen ([place] 5-325) 1 each PO BID PRN PRN Reason: Pain Albuterol/Ipratropium (Duoneb 0.5 Mg-3 Mg/3 Ml Soln) 3 ml INHALATION RT-QID [facility] Last Admin: 05/05/19 19:21 Dose: 3 ml Documented by: Alprazolam (Xanax) 0.5 mg PO DAILY PRN PRN Reason: Anxiety Aspirin (Aspirin) 81 mg PO DAILY [facility] Last Admin: 05/05/19 08:33 Dose: 81 mg Documented by: Atorvastatin Calcium (Lipitor) 80 mg PO DAILY [facility] Last Admin: 05/05/19 08:33 Dose: 80 mg Documented by: Enoxaparin Sodium (Lovenox) 40 mg SQ DAILY [facility] Last Admin: 05/05/19 08:33 Dose: Not Given Documented by: Famotidine (Pepcid) 20 mg PO BID [facility] Last Admin: 05/05/19 20:39 Dose: 20 mg Documented by: Furosemide (Lasix) 20 mg PO DAILY PRN PRN Reason: Edema Guaifenesin (Mucinex) 1,200 mg PO Q12HR [facility] Last Admin: 05/05/19 20:39 Dose: 1,200 mg Documented by: Hydrocortisone Sodium Succinate (Solu-Cortef) 25 mg IV Q8HR [facility] Last Admin: 05/05/19 15:31 Dose: 25 mg Documented by: Piperacillin Sod/Tazobactam (Sod 3.375 gm/ Sodium Chloride) 100 mls @ 25 mls/hr IVPB Q8HR [facility] Stop: 05/13/19 00:01 Last Admin: 05/05/19 15:32 Dose: 25 mls/hr Documented by: Levofloxacin 750 mg/ IV (Solution) 150 mls @ 100 mls/hr IVPB Q48H [facility] Stop: 05/16/19 15:01 Last Admin: 05/04/19 15:48 Dose: 100 mls/hr Documented by: Sodium Chloride (Saline 0.9%) 1,000 mls @ 10 mls/hr IV .Q24H [facility] Last Admin: 05/05/19 15:23 Dose: 10 mls/hr Documented by: Losartan Potassium (Cozaar) 25 mg PO DAILY [facility] Last Admin: 05/05/19 08:34 Dose: 25 mg Documented by: Metoprolol Tartrate (Lopressor) 25 mg PO BID [facility] Last Admin: 05/05/19 20:39 Dose: 25 mg Documented by: Miscellaneous Information (Pneumonia Protocol Utilized) 1 each PO ONCE PRN PRN Reason: Per Protocol Nitroglycerin (Nitrostat) 0.4 mg SUBLINGUAL Q5M PRN PRN Reason: Chest Pain Ondansetron HCl (Zofran Odt) 4 mg PO Q6H PRN PRN Reason: Nausea Psyllium Hydrophilic Mucilloid (Metamucil) 6 gm PO DAILY [facility] Senna/Docusate Sodium (Senokot-S) 2 each PO BID PRN PRN Reason: Constipation Last Admin: 05/05/19 15:20 Dose: 2 each Documented by: Physical examination: VITAL SIGNS: 98.2, 62, 17, 125/55, 97% room air GENERAL: Sitting up in a chair, looking better. EYES: Pupils equal. Conjunctiva normal. HEENT: External appearance of nose and ears normal, oral cavity grossly normal, decreased hearing. NECK: JVD unable to assess; masses not palpable. HEART: First and second heart sounds are normal; no edema. LUNGS: Respiratory rate increased, decreased breath sounds on expiration improved air entry. ABDOMEN: Soft, nontender, liver spleen not palpable, no masses palpable. PSYCH: [Awake, answering questions l. Investigations: White count 6.3 hemoglobin 11.4 potassium 4.4 bun 23 creatinine 1.11 Previous testing White count 12.9 hemoglobin 11.9 potassium 4.6 creatinine 0.96 Troponin I 0.0147 proBNP 3600 influenza AB-. EKG tracing personally reviewed by me-shows type II block Checks to x-ray film shows infiltrate versus mass Assessment: -Bilateral pneumonia, could be underlying malignancy, secondary bacterial infection possible. Clinical improvement -Second degree AV block, and a patient with permanent pacemaker -Essential hypertension -Hyperlipidemia -Coronary artery disease with stent in 2001 -Primary osteoarthritis -Gait dysfunction uses a walker -Troponin leak due to hemodynamic mismatch. Not acute coronary syndrome - Plan: Care was discussed in length with the patient daughter the bedside. Does a question about the x-ray findings. Did discuss at length with both of them. If this was to be consulted to be malignancy they do not want anything to be done. Present time patient clinically improved and will treat the pneumonia with the same. Medications to continue. Clinically improving. We will DILAN Dior
--- NOTE | 2019-05-05 22:30 | PN ---
PROGRESS NOTE This patient was admitted with cough, congestion and shortness of breath. Patient's chest x-ray is suggestive of multifocal pneumonia. The patient is feeling better. Her shortness of breath is improved. Blood pressure is 125/55 mmHg. First and second heart sounds are normal. Lungs reveal bilateral scattered rales. The patient has a mildly elevated troponin, possibly secondary to supply and demand mismatch and type 2 myocardial injury. The patient's echocardiogram does not show any evidence of wall motion abnormality. We would recommend continuing the patient on the current medications, including Lopressor, aspirin and Cozaar. The patient is on Lipitor 40 mg daily. We will now follow the patient p.r.n. MMODL / IJN: [id number] /
[2019-05-06 06:43] LABS: HCT 30.9 % (34.0-46.0); HGB 10.3 gm/dL (11.4-16.0); MCH 30.8 pg (25.0-35.0); MCHC 33.3 g/dL (31.0-37.0); MCV 92.7 fL (80.0-100.0); Mean Platelet Volume 6.9; Platelet Count 301 k/uL (150-450); RBC 3.34 m/uL (3.80-5.40); WBC 9.2 k/uL (3.8-10.6)
[2019-05-06 06:51] LABS: Calcium 8.8 mg/dL (8.4-10.2); Potassium 3.9 mmol/L (3.5-5.1)
[2019-05-06] MEDS: ENOXAPARIN 40 MG/0.4 ML SYRINGE SQ SCH (08:02)
[2019-05-06] MEDS: IPRATROPIUM-ALBUTEROL 3 ML NEB INHALATION SCH ×4 (08:08→20:05)
[2019-05-06] MEDS: PIPERACILLIN-TAZOBACTAM 3.375 GM in SODIUM CHLORIDE 0.9% 100 ML IVPB SCH ×3 (08:10→23:19)
[2019-05-06] MEDS: ASPIRIN 81 MG PO SCH (08:10)
[2019-05-06] MEDS: ATORVASTATIN 80 MG TAB PO SCH (08:11)
[2019-05-06] MEDS: LOSARTAN 25 MG TAB PO SCH (08:11)
[2019-05-06] MEDS: FAMOTIDINE 20 MG TAB PO SCH (08:11)
[2019-05-06] MEDS: guaiFENesin 600 MG TABLET.ER PO SCH ×2 (08:11→20:03)
[2019-05-06] MEDS: PSYLLIUM HUSK 100% 6 GM PACKET PO SCH (08:12)
[2019-05-06] MEDS: METOPROLOL TARTRATE 25 MG TAB PO SCH ×2 (08:12→20:03)
[2019-05-06] MEDS: HYDROcodone/APAP 5-325MG 1 EACH TAB PO PRN ×2 (08:12→17:46)
[2019-05-06] MEDS: predniSONE 10 MG TAB PO SCH (08:12)
[2019-05-06] MEDS: SENNOSIDES-DOCUSATE SODIUM 1 EACH TAB PO PRN (08:18)
[2019-05-06] MEDS: ONDANSETRON ODT 4 MG TAB PO PRN (11:10)
[2019-05-06] MEDS ORDERED: ENOXAPARIN 30 MG/0.3 ML SYRINGE SQ SCH (14:29)
[2019-05-06] MEDS ORDERED: FAMOTIDINE 20 MG TAB PO SCH (14:30)
[2019-05-06] MEDS: SODIUM CHLORIDE 0.9% 1,000 ML IV SCH (15:12)
[2019-05-06] MEDS: ACETAMINOPHEN TAB 325 MG TAB PO PRN (15:52)
--- NOTE | 2019-05-06 15:53 | P.PN ---
Progress Note - Text Progress Note Date: 05/06/19 Chief Complaint: Week with the cough Interval history: This is a very pleasant 88-year-old patient of Dr. Cuellar from visiting physician. Chronic stable medical conditions include hypertension, hyperlipidemia, coronary artery disease with prior [place], osteoarthritis, gait aneurysm, coronary stent in 2001, gait dysfunction uses a walker. Patient lives with her daughter. Patient presents with symptoms of increasing congested in the chest. Mucous-type sputum production.. Decreased appetite. Had a low- grade fever up to 100. His got a cough. Not able to bring up much. Up. Feeling weak tired rundown. Admitted for the same. Patient's daughter Elzbieta's by the bedside. Not able to get around much for the last few days. Also be bradycardic. Patient also been having recurrent passing out episodes at home. Patient admitted with bilateral pneumonia. Today-breathing better. Eating better. Has been out of bed. No new issues. Review of systems: Was done for constitutional, cardiovascular, GI, pulmonary. relevant finding as above Active Medications Acetaminophen (Tylenol Tab) 650 mg PO Q4HR PRN PRN Reason: Fever and/ or Pain Last Admin: 05/05/19 15:19 Dose: 650 mg Documented by: Hydrocodone Bitart/Acetaminophen ([place] 5-325) 1 each PO BID PRN PRN Reason: Pain Last Admin: 05/06/19 08:12 Dose: 0.5 each Documented by: Albuterol/Ipratropium (Duoneb 0.5 Mg-3 Mg/3 Ml Soln) 3 ml INHALATION RT-QID REPLACED BY [facility] Last Admin: 05/06/19 15:30 Dose: 3 ml Documented by: Alprazolam (Xanax) 0.5 mg PO DAILY PRN PRN Reason: Anxiety Aspirin (Aspirin) 81 mg PO DAILY [facility] Last Admin: 05/06/19 08:10 Dose: 81 mg Documented by: Atorvastatin Calcium (Lipitor) 80 mg PO DAILY [facility] Last Admin: 05/06/19 08:11 Dose: 80 mg Documented by: Enoxaparin Sodium (Lovenox) 30 mg SQ DAILY [facility]PL[facility] BY [facility] Famotidine (Pepcid) 20 mg PO DAILY [facility] Furosemide (Lasix) 20 mg PO DAILY PRN PRN Reason: Edema Guaifenesin (Mucinex) 1,200 mg PO Q12HR [facility]PLAC[facility] Last Admin: 05/06/19 08:11 Dose: 1,200 mg Documented by: Piperacillin Sod/Tazobactam (Sod 3.375 gm/ Sodium Chloride) 100 mls @ 25 mls/hr IVPB Q8HR [facility]PLACED BY [facility] Stop: 05/13/19 00:01 Last Admin: 05/06/19 08:10 Dose: 25 mls/hr Documented by: Sodium Chloride (Saline 0.9%) 1,000 mls @ 10 mls/hr IV .Q24H REPLACED [facility] Last Admin: 05/06/19 15:12 Dose: Not Given Documented by: Losartan Potassium (Cozaar) 25 mg PO DAILY [facility] Last Admin: 05/06/19 08:11 Dose: 25 mg Documented by: Metoprolol Tartrate (Lopressor) 25 mg PO BID [facility]PLAC[facility] BY [facility] Last Admin: 05/06/19 08:12 Dose: 25 mg Documented by: Miscellaneous Information (Pneumonia Protocol Utilized) 1 each PO ONCE PRN PRN Reason: Per Protocol Nitroglycerin (Nitrostat) 0.4 mg SUBLINGUAL Q5M PRN PRN Reason: Chest Pain Ondansetron HCl (Zofran Odt) 4 mg PO Q6H PRN PRN Reason: Nausea Last Admin: 05/06/19 11:10 Dose: 4 mg Documented by: Prednisone () 30 mg PO DAILY [facility]PL[facility] Last Admin: 05/06/19 08:12 Dose: 30 mg Documented by: Psyllium Hydrophilic Mucilloid (Metamucil) 6 gm PO DAILY [facility] Last Admin: 05/06/19 08:12 Dose: 6 gm Documented by: Senna/Docusate Sodium (Senokot-S) 2 each PO BID PRN PRN Reason: Constipation Last Admin: 05/06/19 08:18 Dose: 2 each Documented by: Physical examination: VITAL SIGNS: 98.5, 61, 16, 1 32 x 68, 99% room air GENERAL: Propped up in bed, but tired. EYES: Pupils equal. Conjunctiva normal. HEENT: External appearance of nose and ears normal, oral cavity grossly normal, decreased hearing. NECK: JVD unable to assess; masses not palpable. HEART: First and second heart sounds are normal; no edema. LUNGS: Respiratory rate increased, decreased breath sounds on expiration improved air entry. ABDOMEN: Soft, nontender, liver spleen not palpable, no masses palpable. PSYCH: [Awake, answering questions l. Investigations: White count 9.2 hemoglobin 10.3 potassium 3.9 bun 27 creatinine 1.21 Previous testing White count 12.9 hemoglobin 11.9 potassium 4.6 creatinine 0.96 Troponin I 0.0147 proBNP 3600 influenza AB-. EKG tracing personally reviewed by me-shows type II block Checks to x-ray film shows infiltrate versus mass Assessment: -Bilateral pneumonia, could be underlying malignancy, secondary bacterial infection possible. Clinical improvement -Second degree AV block, and a patient with permanent pacemaker -Essential hypertension -Hyperlipidemia -Coronary artery disease with stent in 2001 -Primary osteoarthritis -Gait dysfunction uses a walker -Troponin leak due to hemodynamic mismatch. Not acute coronary syndrome - Plan: Patient doing better. Continue with current medication. Plan IV antibiotics. Hoping to discharge next 24 hours. We'll speak to the daughter.
[2019-05-07] MEDS: IPRATROPIUM-ALBUTEROL 3 ML NEB INHALATION SCH ×3 (07:38→15:54)
[2019-05-07 08:37] VITALS: BP 132/94; RESP 16; TEMP 98.8
[2019-05-07] MEDS: ATORVASTATIN 80 MG TAB PO SCH (08:38)
[2019-05-07] MEDS: LOSARTAN 25 MG TAB PO SCH (08:38)
[2019-05-07] MEDS: predniSONE 10 MG TAB PO SCH (08:38)
[2019-05-07] MEDS: PSYLLIUM HUSK 100% 6 GM PACKET PO SCH (08:38)
[2019-05-07] MEDS: guaiFENesin 600 MG TABLET.ER PO SCH (08:38)
[2019-05-07] MEDS: METOPROLOL TARTRATE 25 MG TAB PO SCH (08:38)
[2019-05-07] MEDS: ASPIRIN 81 MG PO SCH (08:38)
[2019-05-07] MEDS: SENNOSIDES-DOCUSATE SODIUM 1 EACH TAB PO PRN (08:43)
[2019-05-07] MEDS: ACETAMINOPHEN TAB 325 MG TAB PO PRN (08:43)
[2019-05-07] MEDS: ONDANSETRON ODT 4 MG TAB PO PRN (09:11)
[2019-05-07] MEDS: PIPERACILLIN-TAZOBACTAM 3.375 GM in SODIUM CHLORIDE 0.9% 100 ML IVPB SCH (09:11)
[2019-05-07] MEDS: SODIUM CHLORIDE 0.9% 1,000 ML IV SCH (14:29)
[2019-05-07 16:08] VITALS: PULSE 84
--- NOTE | 2019-05-07 21:53 | P.DS ---
Providers Date of admission: 05/03/19 14:22 Expected date of discharge: 05/07/19 Attending physician: Chucho Rodriguez Consults: 05/03/19 14:22 Consult Physician Urgent Consulting Provider: Kris Merrill Consult Reason/Comments: elevTrop Do you want consulting provider notified?: Yes Primary care physician: Damion Cuellar [facility] Course: Interval history: This is a very pleasant 88-year-old patient of Dr. Cuellar from visiting physician. Chronic stable medical conditions include hypertension, hyperlipidemia, coronary artery disease with prior [place], osteoarthritis, gait aneurysm, coronary stent in 2001, gait dysfunction uses a walker. Patient lives with her daughter. Patient presents with symptoms of increasing congested in the chest. Mucous-type sputum production.. Decreased appetite. Had a low- grade fever up to 100. His got a cough. Not able to bring up much. Up. Feeling weak tired rundown. Admitted for the same. Patient's daughter Elzbieta's by the bedside. Not able to get around much for the last few days. Also be bradycardic. Patient also been having recurrent passing out episodes at home. Patient admitted with bilateral pneumonia.treated with antibiotics. To which she responded well. There is some shadowing of the left upper apex. Discussed with daughter and the patient.not any further workup. doing well today. keen to go home. Feeling well. consultation: Dr. VC Davis from cardiology Physical examination: VITAL SIGNS: 98.8, 88, 16, 1:30 to be 94, 98% room air GENERAL:sitting up in a chair, comfortable EYES: Pupils equal. Conjunctiva normal. HEENT: External appearance of nose and ears normal, oral cavity grossly normal, decreased hearing. NECK: JVD unable to assess; masses not palpable. HEART: First and second heart sounds are normal; no edema. LUNGS: Respiratory rate increased, decreased breath sounds ABDOMEN: Soft, nontender, liver spleen not palpable, no masses palpable. PSYCH: [Awake, answering questions l. Investigations: White count 9.2 hemoglobin 10.3 potassium 3.9 bun 27 creatinine 1.21 Previous testing White count 12.9 hemoglobin 11.9 potassium 4.6 creatinine 0.96 Troponin I 0.0147 proBNP 3600 influenza AB-. EKG tracing personally reviewed by me-shows type II block Checks to x-ray film shows infiltrate versus mass Assessment: -Bilateral pneumonia, could be underlying malignancy, secondary bacterial infection possible. improvedt -Second degree AV block, and a patient with permanent pacemaker -Essential hypertension -Hyperlipidemia -Coronary artery disease with stent in 2001 -Primary osteoarthritis -Gait dysfunction uses a walker -Troponin leak due to hemodynamic mismatch. Not acute coronary syndrome - disposition: Home Patient Condition at Discharge: Stable Plan - Discharge Summary New Discharge Prescriptions: New Amoxicillin/Potassium Clav [Augmentin 875-125 Tablet] 1 tab PO BID 3 Days #6 tab Losartan [Cozaar] 25 mg PO DAILY #30 tab Atorvastatin [Lipitor] 80 mg PO DAILY #30 tab Metoprolol Tartrate [Lopressor] 25 mg PO BID #60 tab Psyllium [place] 100% [Metamucil Packet] 6 gm PO DAILY #14 packet Continue Nitroglycerin Sl Tabs [Nitrostat] 0.4 mg SUBLINGUAL Q5M PRN PRN Reason: Chest Pain Aspirin 81 mg PO Q7D Famotidine [Pepcid] 20 mg PO BID #30 tablet Cholecalciferol [Vitamin D3 (25 Mcg = 1000 Iu)] 1,000 unit PO DAILY Ondansetron Odt [Zofran ODT] 4 mg PO Q6H PRN PRN Reason: Nausea predniSONE 10 mg PO DAILY HYDROcodone/APAP 5-325MG [[place] 5-325] 1 tab PO BID Biotin 5 mg PO DAILY Furosemide [Lasix] 20 mg PO DAILY PRN PRN Reason: Edema ALPRAZolam [Xanax] 0.5 mg PO DAILY PRN PRN Reason: Anxiety HYDROcodone/APAP 7.5-325MG [[place] 7.5-325] 7.5 - 325 PO TID PRN PRN Reason: Pain HYDROcodone/APAP 7.5-325MG [[place] 7.5-325] 7.5 - 325 PO TID Discontinued Atorvastatin [Lipitor] 40 mg PO HS Cetirizine HCl [Zyrtec] 10 mg PO DAILY Losartan [Cozaar] 50 mg PO DAILY Discharge Medication List Aspirin 81 mg PO Q7D 05/01/14 [History] Nitroglycerin Sl Tabs [Nitrostat] 0.4 mg SUBLINGUAL Q5M PRN 05/01/14 [History] Famotidine [Pepcid] 20 mg PO BID #30 tablet 06/28/14 [Rx] Cholecalciferol [Vitamin D3 (25 Mcg = 1000 Iu)] 1,000 unit PO DAILY 11/16/16 [History] Ondansetron Odt [Zofran ODT] 4 mg PO Q6H PRN 01/14/17 [History] ALPRAZolam [Xanax] 0.5 mg PO DAILY PRN 05/03/19 [History] Biotin 5 mg PO DAILY 05/03/19 [History] Furosemide [Lasix] 20 mg PO DAILY PRN 05/03/19 [History] HYDROcodone/APAP 5-325MG [[place] 5-325] 1 tab PO BID 05/03/19 [History] predniSONE 10 mg PO DAILY 05/03/19 [History] HYDROcodone/APAP 7.5-325MG [[place] 7.5-325] 7.5 - 325 PO TID 05/04/19 [History] HYDROcodone/APAP 7.5-325MG [[place] 7.5-325] 7.5 - 325 PO TID PRN 05/04/19 [History] Amoxicillin/Potassium Clav [Augmentin 875-125 Tablet] 1 tab PO BID 3 Days #6 tab 05/07/19 [Rx] Atorvastatin [Lipitor] 80 mg PO DAILY #30 tab 05/07/19 [Rx] Losartan [Cozaar] 25 mg PO DAILY #30 tab 05/07/19 [Rx] Metoprolol Tartrate [Lopressor] 25 mg PO BID #60 tab 05/07/19 [Rx] Psyllium Husk 100% [Metamucil Packet] 6 gm PO DAILY #14 packet 05/07/19 [Rx] Follow up Appointment(s)/Referral(s): [facility], [NON-STAFF] - As Needed Damion Cuellar MD [Primary Care Provider] - 1-2 days (Please call office during normal business hours to make follow up appointment.) Patient Instructions/Handouts: Community Acquired Pneumonia (DC) Discharge Disposition: HOME SELF-CARE
== END 2019-05-07 16:58 | disposition home health service (06) | DRG 193 ==
LOC: EC 12:01 → 2SICU 14:22 → 3SCARD 05-05 13:55
PROVIDERS: ADMIT Hospitalist; ATTEND Hospitalist
DX: J18.9 Pneumonia, unspecified organism (principal); I21.A1 Myocardial infarction type 2; Z87.891 Personal history of nicotine dependence; R91.8 Other nonspecific abnormal finding of lung field; E78.5 Hyperlipidemia, unspecified; E86.0 Dehydration; H35.30 Unspecified macular degeneration; H91.90 Unspecified hearing loss, unspecified ear; I10 Essential (primary) hypertension; I25.10 Atherosclerotic heart disease of native coronary artery without angina pectoris; I25.2 Old myocardial infarction; I44.1 Atrioventricular block, second degree; M06.9 Rheumatoid arthritis, unspecified; M19.90 Unspecified osteoarthritis, unspecified site; M81.0 Age-related osteoporosis without current pathological fracture; R32 Unspecified urinary incontinence; Z79.899 Other long term (current) drug therapy; Z86.73 Personal history of transient ischemic attack (TIA), and cerebral infarction without residual deficits; Z90.721 Acquired absence of ovaries, unilateral; Z95.0 Presence of cardiac pacemaker; Z95.5 Presence of coronary angioplasty implant and graft; R26.9 Unspecified abnormalities of gait and mobility; Z98.42 Cataract extraction status, left eye; Z98.41 Cataract extraction status, right eye; R74.8 Abnormal levels of other serum enzymes; Z87.440 Personal history of urinary (tract) infections; Z74.01 Bed confinement status; Z79.82 Long term (current) use of aspirin; Z79.52 Long term (current) use of systemic steroids; Z88.5 Allergy status to narcotic agent; Z88.8 Allergy status to other drugs, medicaments and biological substances; Z91.040 Latex allergy status
CPT/HCPCS: 36415; 71045; 71046; 71275; 80048; 80053; 80061; 81003; 82550; 83605; 83735; 83880; 84100; 84484; 85025; 85027; 85610; 85730; 87040; 87086; 87502; 93306; 94640; 94760; 96361; 96365; 96375; 99285

== ENCOUNTER → 2019-09-20 | Outpatient (CLI) | payer MEDICARE, BC ==
--- NOTE | 2019-09-20 15:38 | BD ---
EXAMINATION TYPE: Axial Bone Density DATE OF EXAM: 09/20/2019 COMPARISON: NONE CLINICAL HISTORY: Height: 5 FT 6 IN Weight: 130 FRAX RISK QUESTIONS: Alcohol (3 or more units per day): NO Family History (Parent hip fracture): NO Glucocorticoids (More than 3mos): YES (Ex: prednisone, prednisolone, methylprednisolone, dexamethasone, and hydrocortisone). History of Fracture in Adulthood: NO Secondary Osteoporosis: 1. Type 1 Diabetes: NO 2. Hyperthyroidism: NO 3. Menopause before 45: NO 4. Malnutrition: NO 5. Chronic liver disease: NO Rheumatoid Arthritis: NO Current Tobacco Use: NO RISK FACTORS HISTORY OF: Postmenopausal woman: AGE 51 Frequent falls: UNSTABLE USES WALKER AT HOME MEDICATIONS: Prednisone or other steroids: YES How Lon MONTHS Thyroid Medications: Which medication: How Long: Osteoporosis Medications: TOOK INJ AT ONE TIME NOT SURE WHEN SHE HAD LAST ONE Which medication: How Long: Additional Medications: COZAAR, PEPCID, LIPITOR, ZOFRAN, D3, BIOTIN, ZYRTEC, LASIX, XANAX, PREDNISONE , NOCOR, BABY ASPIRIN Additional History: EXAM MEASUREMENTS: Bone mineral densitometry was performed using the [employer] System. Bone mineral density as measured about the Lumbar spine is: ----- L1-L4(G/cm2): 1.018 T Score Values are as follows: ----- L2: -1.4 ----- L3: 0.0 ----- L4: -2.2 ----- L1-L4: -1.4 PREV NOT DONE HERE Bone mineral density about the R hip (g/cm2): 0.547 Bone mineral density about the L hip (g/cm2): 0.520 T Score values are as follows: -----R Neck: -3.5 -----L Neck: -3.7 -----R Total: -4.0 -----L Total: -3.7 PREV NOT DONE HERE IMPRESSION: Osteopenia (T Score between -2.5 and 1). There is slightly increased risk of fracture and patient may be considered for treatment. Re-Screen 2-5 years. NOTE: T-SCORE=SD OF THE YOUNG ADULT MEAN.
== END | disposition home or self-care (01) ==
LOC: RADBDWWP 10:34
PROVIDERS: ATTEND Internal Medicine Rheumatology
DX: M85.88 Other specified disorders of bone density and structure, other site (principal); M81.0 Age-related osteoporosis without current pathological fracture
CPT/HCPCS: 77080